=== PATIENT | male | born 1945 | race Caucasian/White ===

== ENCOUNTER → 2016-12-02 | Outpatient (CLI) | payer MEDICARE ==
[2016-04-06 07:58] VITALS: BP 121/55
[~2016-12-02] MED LIST: CELE-20 PO; CELE100C PO; COLC0.6T34 PO; GEMF600T PO; HYDR-2679 PO; LEVO150T5 PO; LISI-334 PO; LISI1TAB7 PO; TRIA1CAP3 PO
--- NOTE | 2016-12-02 12:01 | KCIC ---
EXAM: Chest, 2 views. HISTORY: Dyspnea. COMPARISON: None. FINDINGS: Frontal and lateral views of the chest are obtained. There is suspected infrahilar atelectasis. There is no consolidation, effusion or pneumothorax. The cardiac silhouette is upper normal in size. There is a cardiac pacemaker with leads in expected position. IMPRESSION: No acute pulmonary finding. Electronically signed by: Lesia Lan MD (12/02/2016 11:57 AM) [facility]
== END | disposition home or self-care (01) ==
LOC: KCIC 11:35
PROVIDERS: ATTEND Family Medicine
DX: R06.00 Dyspnea, unspecified (principal)
CPT/HCPCS: 71020

== ENCOUNTER 2016-12-18 11:08 | Inpatient (IN) | payer MEDICARE ==
[2016-12-18] VITALS (7 sets, daily range): BP systolic 114–136; BP diastolic 58–67
[~2016-12-18] VITALS: Ht 180.3 cm; Wt 129.3 kg
--- NOTE | 2016-12-18 13:29 | PDOC2 ---
JAVI GROVER JAVA GRAILS DEVELOPER 12/18/16 1329: CARDIAC CONSULT DATE OF CONSULT Date of Consult DATE: 12/18/16 TIME: 13:18 REASON FOR CONSULT Reason for Consult: Anemia, SOA, pacemaker REFERRING PHYSICIAN Referring Physician: Franco SOURCE Source: Chart review, Patient HISTORY OF PRESENT ILLNESS HISTORY OF PRESENT ILLNESS This is a pleasant 71 yo male admitted for complains of SOA. He was seen in our office on 12/04/2016 and was already having SALAZAR at that time. There was no associated symptoms that would suggest any ischemic issues going on and his recent device interrogation revealed normal functioning. He had stress test as well as LHC in 2014 which revealed normal coronaries. He was referred to pulmonary and was seen just this Wednesday and testings were done but type and results were still pending. He was then seen in his PCPs office today and was noted with multiple bruising to his arms and his blood count was checked and was told that his Hgb was 5. Upon admission he was noted with Hgb of 8 and PLT< 3. The only symptom he has is SOA with exertion and new ecchymoses and weakness. Denies any hematemesis, pink tinge urine, black stool, NSAID use, CP , SOA at rest, palpitations, syncope, nausea or vomiting. PAST MEDICAL HISTORY Cardiovascular: CHF, HTN, Hyperlipidemia, Other (venous insufficiency) Heme/Onc: Other (DVT?) Psych: Other (autism) Musculoskeletal: Osteoarthritis Rheumatologic: Gout Endocrine: Hypothyroidism PAST SURGICAL HISTORY Past Surgical History: Pacemaker, Cholecystectomy, Hernia Repair, Total knee replacement (bilateral), Other (RF ablation to RGSV; thyroid resection) FAMILY HISTORY Family History: Heart Disease (mother) SOCIAL HISTORY Smoke: No ALCOHOL: none Drugs: None ALLERGIES ALLERGIES: Coded Allergies: No Known Drug Allergies (Unverified , 01/02/14) ROS Review of System 14 point ROS evaluated with pertinent positives noted per HPI PHYSICAL EXAM General: Alert, Oriented X3, Cooperative, No acute distress HEENT: Atraumatic, Mucous membr. moist/pink, Other (exopthalmos) Lungs: Other (basilar crackles) Heart: Regular rate, Other (3/6 systolic murmur to LLS border) Abdomen: Soft, No tenderness Extremities: No cyanosis, Other (2+ bilateral LE pitting edema) Neuro: Normal speech Psych/Mental Status: Mental status NL, Mood NL MUSCULOSKELETAL: Osteoarthritic changes both hands ECHOCARDIOGRAM ECHOCARDIOGRAM <Conclusion> Septal wall motion abnormality probably from paced rhythm. The Ejection Fraction is 65%. Transmitral Doppler flow pattern is Grade I-abnormal relaxation pattern. The left atrium is mildly dilated. Pacer wire noted in right atrium and ventricle. Trace mitral regurgitation Mild tricuspid regurgitation. Mild-moderate pulmonary hypertension. The pulmonary artery systolic pressure is estimated at 44 mmHg. There is no evidence of significant pericardial effusion. DATE: 03/05/16 1258 HEART CATH HEART CATH Conclusion 1. No significant coronary artery disease 2. Normal left ventricle systolic function with ejection fraction estimated at 55% 3. No significant mitral regurgitation or aortic stenosis DATE: 04/30/14 1023 ASSESSMENT/PLAN ASSESSMENT/PLAN 1. Leukocytosis/Macrocytic anemia with severe thrombocytopenia: Hgb 8.1 (noted as 5 at PCPs office per pt) and PLT<3. Per PCP 2. 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 recent interrogation 12/03/2016 with normal functioning. 3. Dyspnea: Mainly due to anemia. Seen by pulmonary Wednesday with pending tests results. 4. GLEN: per PCP 5. HTN 6. HLP 7. Moderate pulmonary HTN 8. Chronic diastolic CHF 9. Acquired Hypothyroidism with exophthalmos 10. Hx of severe renal reaction with past blood transfusion: type unknown Recommendations 1. Transfusion per PCP. GI consult pending. Will consult pulmonary 2. TTE, TSH, CXR. Supportive care. Problems: DANIELE COLLAZO MD 12/18/16 1706: CARDIAC CONSULT ALLERGIES ALLERGIES: Coded Allergies: No Known Drug Allergies (Unverified , 01/02/14) ASSESSMENT/PLAN ASSESSMENT/PLAN Patient seen and examined Severe thrombocytopenia/anemia. Workup and treatment as per the primary service above. GI consult pending. Dual-chamber pacemaker. Recent normal interrogation. Dyspnea. Contributing factor of anemia. Heart catheterization in April 2014 showed no significant coronary artery disease and an ejection fraction of 55%. Repeating echocardiogram. Pulmonary consult pending. Acute kidney injury. Hypertension. Continuing medical treatment. Moderate pulmonary hypertension. Again continuing medical treatment. Chronic diastolic heart failure. Thank you for allowing us to participate in the care of your patient. Problems: JAVI GROVER APRN Dec 18, 2016 13:29 DANIELE COLLAZO MD Dec 18, 2016 17:06
[2016-12-18] MEDS ORDERED: CYANOCOBALAMIN (VITAMIN B-12) 1,000 MCG/ML VIAL SQ ONE (13:30)
[2016-12-18 13:53] LABS: HEMATOCRIT 25.7 % (39.0-53.0); HEMOGLOBIN 8.1 g/dL (13.0-17.5); MEAN CORPUSCULAR HEMOGLOBIN 35 pg (25-35); MEAN CORPUSCULAR HGB CONC 32 g/dL (31-37); MEAN CORPUSCULAR VOLUME 110 fL (79-100); RED BLOOD COUNT 2.34 x10^6/uL (4.30-5.70); RED CELL DISTRIBUTION WIDTH 17.4 % (11.5-14.5)
[2016-12-18 13:54] LABS: BASO # 0.1 x10^3/uL (0.0-0.2); BASO % 1 % (0-3); EOS % 1 % (0-3); LYMPH # 15.9 x10^3/uL (1.0-4.8); LYMPH % 76 % (24-48); MONO % 3 % (0-9); NEUT % 20 % (31-73); PLATELET COUNT < 3 x10^3/uL (140-400)
[2016-12-18 13:55] LABS: ALBUMIN 3.4 g/dL (3.4-5.0); ALBUMIN/GLOBULIN RATIO 1.4 (1.0-1.7); CALCIUM 8.3 mg/dL (8.5-10.1); CREATININE 1.8 mg/dL (0.7-1.3); DIRECT BILIRUBIN 0.6 mg/dL (0.0-0.2); GFR 37.5; POTASSIUM 3.7 mmol/L (3.5-5.1); TOTAL BILIRUBIN 3.6 mg/dL (0.2-1.0); TOTAL PROTEIN 5.8 g/dL (6.4-8.2)
[2016-12-18 13:59] LABS: % BASOS 1 % (0-3); % EOS 3 % (0-5); PLT ESTIMATE DECREASED (ADEQUATE)
[2016-12-18 14:00] LABS: ANISOCYTOSIS SLIGHT; POLYCHROMASIA SLIGHT
--- NOTE | 2016-12-18 14:43 | PDOC2 ---
GI CONSULT Reason For Consult: Anemia HPI: HPI: 71 y/o male sent who had a follow-up appt w/ Dr. Gamez this morning after pulmonology eval earlier this week. Found to be anemia (Hgb 5), sent to ER. Has been having some SOA, unclear what pulm workup showed. Has noted bruising on his arms, some weakness and fatigue. Here, Hgb 8 w/ plt <3. No hematemesis, hematochezia, melena. No n/v. No heartburn, reflux, or dysphagia. No abd pain. No change in appetite or weight. No diarrhea or constipation. No NSAID use, takes hydrocodone. Colonoscopy 3-4 years ago, recalls as normal. No previous EGD. S/p cholecystectomy. No liver or pancreas history. No h/o anemia. Cardiology, hematology, and nephrology asked to see. PMH: PMH: CHF, HTN, HLD, venous insufficiency, LE DVT, autism, OA, gout, hypothyroidism, pacemaker, cholecystectomy, right inguinal hernia repair, bilateral knee replacements, thyroidectomy (as a teenager, unclear reason), cardiac cath FH: Family History: CAD Social History: Smoke: No ALCOHOL: none Drugs: None ROS: GEN: Denies fevers, chills, sweats HEENT: Denies blurred vision, sore throat CV: Denies chest pain RESP: +SOA GI: Per HPI : Denies hematuria, dysuria ENDO: Denies weight changes NEURO: Denies confusion, dizziness MSK: +weakness SKIN: +bruising Vitals: Vitals: Please see EMR. Labs: Labs: Laboratory Tests Test 12/18/16 12:00 White Blood Count 21.0 x10^3/uL (4.0-11.0) Red Blood Count 2.34 x10^6/uL (4.30-5.70) Hemoglobin 8.1 g/dL (13.0-17.5) Hematocrit 25.7 % (39.0-53.0) Mean Corpuscular Volume 110 fL (79-100) Mean Corpuscular Hemoglobin 35 pg (25-35) Mean Corpuscular Hemoglobin Concent 32 g/dL (31-37) Red Cell Distribution Width 17.4 % (11.5-14.5) Platelet Count < 3 x10^3/uL (140-400) Neutrophils (%) (Auto) 20 % (31-73) Lymphocytes (%) (Auto) 76 % (24-48) Monocytes (%) (Auto) 3 % (0-9) Eosinophils (%) (Auto) 1 % (0-3) Basophils (%) (Auto) 1 % (0-3) Neutrophils # (Auto) 4.3 x10^3uL (1.8-7.7) Lymphocytes # (Auto) 15.9 x10^3/uL (1.0-4.8) Monocytes # (Auto) 0.5 x10^3/uL (0.0-1.1) Eosinophils # (Auto) 0.1 x10^3/uL (0.0-0.7) Basophils # (Auto) 0.1 x10^3/uL (0.0-0.2) Segmented Neutrophils % 27 % (35-66) Band Neutrophils % 4 % (0-9) Lymphocytes % 61 % (24-48) Atypical Lymphocytes % (Manual) 2 % (0-0) Monocytes % 1 % (0-10) Eosinophils % 3 % (0-5) Basophils % 1 % (0-3) Metamyelocytes % 1 % (0-0) Platelet Estimate Decreased (ADEQUATE) Polychromasia Slight Anisocytosis Slight Reticulocyte Count (auto) 7.6 % (0.5-2.5) Sodium Level 145 mmol/L (136-145) Potassium Level 3.7 mmol/L (3.5-5.1) Chloride Level 106 mmol/L (98-107) Carbon Dioxide Level 25 mmol/L (21-32) Anion Gap 14 (6-14) Blood Urea Nitrogen 32 mg/dL (8-26) Creatinine 1.8 mg/dL (0.7-1.3) Estimated GFR (Cockcroft-Gault) 37.5 BUN/Creatinine Ratio 18 (6-20) Glucose Level 135 mg/dL (70-99) Lactic Acid Level 2.5 mmol/L (0.4-2.0) Calcium Level 8.3 mg/dL (8.5-10.1) Total Bilirubin 3.6 mg/dL (0.2-1.0) Direct Bilirubin 0.6 mg/dL (0.0-0.2) Aspartate Amino Transf (AST/SGOT) 45 U/L (15-37) Alanine Aminotransferase (ALT/SGPT) 16 U/L (16-63) Alkaline Phosphatase 96 U/L (46-116) Troponin I Quantitative 0.022 ng/mL (0.000-0.055) Total Protein 5.8 g/dL (6.4-8.2) Albumin 3.4 g/dL (3.4-5.0) Albumin/Globulin Ratio 1.4 (1.0-1.7) Lipase 118 U/L (73-393) Vitamin B12 Level 531 pg/mL (247-911) Allergies: Coded Allergies: No Known Drug Allergies (Unverified , 01/02/14) Medications: Please see EMR. Imaging: Imaging: - PE: GEN: NAD HEENT: exophthalmos LUNGS: CTAB anteriorly HEART: RRR +murm ABD: NABS, S/ND/NT EXTREMITY: BLE edema, wrapped SKIN: +UE ecchymosis NEURO/PSYCH: A & O 3 A/P: A/P: SOA, recent pulm eval (outpt) Thrombocytopenia, macrocytic anemia Leukocytosis GLEN Hyperbilirubinemia CRC screen - reports normal colonoscopy <5 years ago -- Await additional labs, add iron profile. JOSE MARUQEZ Dec 18, 2016 14:43
[2016-12-18 14:46] LABS: INR 1.3 (0.8-1.1)
[2016-12-18 15:08] LABS: % SAT IRON 29 % (15-34); IRON,SERUM 83 ug/dL (65-175)
--- NOTE | 2016-12-18 15:11 | PDOC2 ---
CONSULT Date of Consult Date of Consult DATE: 12/18/16 TIME: 14:56 Reason for Consult Reason for Consult: ckd iiI Referring Physician Referring Physician: Dr Estrella Identification/Chief Complaint Chief Complaint symptomatic anemia Problems: Source Source: Chart review, Patient History of Present Illness Reason for Visit: as dictated Past Medical History Cardiovascular: CHF, HTN, Hyperlipidemia, Other (venous insufficiency) Heme/Onc: Other (DVT?) Psych: Other (autism) Musculoskeletal: Osteoarthritis Rheumatologic: Gout Endocrine: Hypothyroidism Past Surgical History Past Surgical History: Pacemaker, Cholecystectomy, Hernia Repair, Total knee replacement (bilateral), Other (RF ablation to RGSV; thyroid resection) Family History Family History: Heart Disease (mother) Social History No ALCOHOL: none Drugs: None Current Medications Current Medications Current Medications Allopurinol (Zyloprim) 300 mg DAILY PO ; Start 12/19/16 at 09:00 Levothyroxine Sodium (Synthroid) 150 mcg DAILY07 PO ; Start 12/19/16 at 07:00 Cyanocobalamin (Vitamin B-12) 1,000 mcg 1X ONCE SQ ; Start 12/18/16 at 13:30; Stop 12/18/16 at 13:31; Status DC Active Scripts Active Reported Colcrys (Colchicine) 0.6 Mg Tablet 1 Tab PO DAILY Lisinopril-Hctz 20-25 Mg Tab (Lisinopril/Hydrochlorothiazide) 1 Each Tablet 1 Tab PO DAILY Celecoxib 200 Mg Capsule 200 Mg PO PRN PRN Lortab 7.5-325 mg Tablet (Hydrocodone/Acetaminophen) 1 Each Tablet 1 Tab PO PRN Q6HRS PRN Levothyroxine Sodium 150 Mcg Tablet 1 Tab PO DAILY Allergies Allergies: Coded Allergies: No Known Drug Allergies (Unverified , 01/02/14) ROS Review of System GEN: no Fevers no Chills ^ Fatigue EYES: no new Visual Complaints ENT: no EN Drainage no Hearing deficiets CVS: no Orthopnea no CP CVI RESP: + SOB + SALAZAR GI: no Nausea no Vomiting : no Dysuria no Urgency HEME: + easy bruising + Palp Ly Nodes NEURO no Focal Weakness no Sz PSYCH: no Suicidal Ideation no Depression SKIN: no petechiale Rashes ENDO: no Polyuria or Polydipsia no Hot/Cold Intolerance MU SK: occ Arthraigia no Myalgia Physical Exam Physical Exam General Appearance: Awake Alert Oriented x 3 In no Distress Eyes: VIsion Unchanged Conjunctiva Normal; ? some exopthalmos EN: No EN Drainage Mucous Memb. moist Neck: no JVD no JVP Supple no Thyromegaly; thick neck CVS: S1 S2 no Murmur No Gallop No Rub Ch Edema (currently in wraps and better) Resp: no Rales no Rhonchi no Acc. Muscle use GI: BAS +ve NO Bruit Non Tender Non Distended - obese : no CVA tenderness; no Suprapubic Tenderness SKIN: no Rashes Breast Exam deferred Mu.Sk: Adequate ROM no Muscle Atrophy Heme: + Cervical LAD no palp Splenomegaly NEURO: Good Strength and Tone Cranial Nerves II - XII grossly intact Psych: not Depressed no Active hallucination Vital Signs Vital Signs Date Time Temp Pulse Resp B/P (MAP) Pulse Ox O2 Delivery O2 Flow Rate FiO2 12/18/16 14:40 97.8 81 18 114/67 (83) 94 Room Air 97.8 Assessment & Plan CKD III: Unclear ETIO - but is chronic and has been "watched" by Dr Gamez. Current FLuid and E-lyte status does not necessitate emergent need for Dialysis. Will re-evaluate for Dialysis in am ? GLEN - hold PYLE-2i; BRIANDA-i and diuretics fornow. IVF and reval for reversibility Anemia: defer w/up eval to dr Estrella. (? H'lytic anemai) Lactic Aciedmia - no ABG per se. follow trend Edema - better with Wraps currently. HTN: Current BP meds reviewed. See orders for changes. Discussed Plan of Care and prognosis etc. at length with family. Labs Labs Laboratory Tests Test 12/18/16 12:00 White Blood Count 21.0 x10^3/uL (4.0-11.0) Red Blood Count 2.34 x10^6/uL (4.30-5.70) Hemoglobin 8.1 g/dL (13.0-17.5) Hematocrit 25.7 % (39.0-53.0) Mean Corpuscular Volume 110 fL (79-100) Mean Corpuscular Hemoglobin 35 pg (25-35) Mean Corpuscular Hemoglobin Concent 32 g/dL (31-37) Red Cell Distribution Width 17.4 % (11.5-14.5) Platelet Count < 3 x10^3/uL (140-400) Neutrophils (%) (Auto) 20 % (31-73) Lymphocytes (%) (Auto) 76 % (24-48) Monocytes (%) (Auto) 3 % (0-9) Eosinophils (%) (Auto) 1 % (0-3) Basophils (%) (Auto) 1 % (0-3) Neutrophils # (Auto) 4.3 x10^3uL (1.8-7.7) Lymphocytes # (Auto) 15.9 x10^3/uL (1.0-4.8) Monocytes # (Auto) 0.5 x10^3/uL (0.0-1.1) Eosinophils # (Auto) 0.1 x10^3/uL (0.0-0.7) Basophils # (Auto) 0.1 x10^3/uL (0.0-0.2) Segmented Neutrophils % 27 % (35-66) Band Neutrophils % 4 % (0-9) Lymphocytes % 61 % (24-48) Atypical Lymphocytes % (Manual) 2 % (0-0) Monocytes % 1 % (0-10) Eosinophils % 3 % (0-5) Basophils % 1 % (0-3) Metamyelocytes % 1 % (0-0) Platelet Estimate Decreased (ADEQUATE) Polychromasia Slight Anisocytosis Slight Reticulocyte Count (auto) 7.6 % (0.5-2.5) Sodium Level 145 mmol/L (136-145) Potassium Level 3.7 mmol/L (3.5-5.1) Chloride Level 106 mmol/L (98-107) Carbon Dioxide Level 25 mmol/L (21-32) Anion Gap 14 (6-14) Blood Urea Nitrogen 32 mg/dL (8-26) Creatinine 1.8 mg/dL (0.7-1.3) Estimated GFR (Cockcroft-Gault) 37.5 BUN/Creatinine Ratio 18 (6-20) Glucose Level 135 mg/dL (70-99) Lactic Acid Level 2.5 mmol/L (0.4-2.0) Calcium Level 8.3 mg/dL (8.5-10.1) Total Bilirubin 3.6 mg/dL (0.2-1.0) Direct Bilirubin 0.6 mg/dL (0.0-0.2) Aspartate Amino Transf (AST/SGOT) 45 U/L (15-37) Alanine Aminotransferase (ALT/SGPT) 16 U/L (16-63) Alkaline Phosphatase 96 U/L (46-116) Troponin I Quantitative 0.022 ng/mL (0.000-0.055) Total Protein 5.8 g/dL (6.4-8.2) Albumin 3.4 g/dL (3.4-5.0) Albumin/Globulin Ratio 1.4 (1.0-1.7) Lipase 118 U/L (73-393) Vitamin B12 Level 531 pg/mL (247-911) Thyroid Stimulating Hormone (TSH) 3.738 uIU/mL (0.358-3.74) Laboratory Tests Test 12/18/16 12:00 White Blood Count 21.0 x10^3/uL (4.0-11.0) Red Blood Count 2.34 x10^6/uL (4.30-5.70) Hemoglobin 8.1 g/dL (13.0-17.5) Hematocrit 25.7 % (39.0-53.0) Mean Corpuscular Volume 110 fL (79-100) Mean Corpuscular Hemoglobin 35 pg (25-35) Mean Corpuscular Hemoglobin Concent 32 g/dL (31-37) Red Cell Distribution Width 17.4 % (11.5-14.5) Platelet Count < 3 x10^3/uL (140-400) Neutrophils (%) (Auto) 20 % (31-73) Lymphocytes (%) (Auto) 76 % (24-48) Monocytes (%) (Auto) 3 % (0-9) Eosinophils (%) (Auto) 1 % (0-3) Basophils (%) (Auto) 1 % (0-3) Neutrophils # (Auto) 4.3 x10^3uL (1.8-7.7) Lymphocytes # (Auto) 15.9 x10^3/uL (1.0-4.8) Monocytes # (Auto) 0.5 x10^3/uL (0.0-1.1) Eosinophils # (Auto) 0.1 x10^3/uL (0.0-0.7) Basophils # (Auto) 0.1 x10^3/uL (0.0-0.2) Segmented Neutrophils % 27 % (35-66) Band Neutrophils % 4 % (0-9) Lymphocytes % 61 % (24-48) Atypical Lymphocytes % (Manual) 2 % (0-0) Monocytes % 1 % (0-10) Eosinophils % 3 % (0-5) Basophils % 1 % (0-3) Metamyelocytes % 1 % (0-0) Platelet Estimate Decreased (ADEQUATE) Polychromasia Slight Anisocytosis Slight Reticulocyte Count (auto) 7.6 % (0.5-2.5) Sodium Level 145 mmol/L (136-145) Potassium Level 3.7 mmol/L (3.5-5.1) Chloride Level 106 mmol/L (98-107) Carbon Dioxide Level 25 mmol/L (21-32) Anion Gap 14 (6-14) Blood Urea Nitrogen 32 mg/dL (8-26) Creatinine 1.8 mg/dL (0.7-1.3) Estimated GFR (Cockcroft-Gault) 37.5 BUN/Creatinine Ratio 18 (6-20) Glucose Level 135 mg/dL (70-99) Lactic Acid Level 2.5 mmol/L (0.4-2.0) Calcium Level 8.3 mg/dL (8.5-10.1) Total Bilirubin 3.6 mg/dL (0.2-1.0) Direct Bilirubin 0.6 mg/dL (0.0-0.2) Aspartate Amino Transf (AST/SGOT) 45 U/L (15-37) Alanine Aminotransferase (ALT/SGPT) 16 U/L (16-63) Alkaline Phosphatase 96 U/L (46-116) Troponin I Quantitative 0.022 ng/mL (0.000-0.055) Total Protein 5.8 g/dL (6.4-8.2) Albumin 3.4 g/dL (3.4-5.0) Albumin/Globulin Ratio 1.4 (1.0-1.7) Lipase 118 U/L (73-393) Vitamin B12 Level 531 pg/mL (247-911) Thyroid Stimulating Hormone (TSH) 3.738 uIU/mL (0.358-3.74) MAURO QUACH MD Dec 18, 2016 15:11
[2016-12-18] MEDS ORDERED: MAGNESIUM SULFATE 2GM 50 ML IV PRN (15:15)
--- NOTE | 2016-12-18 15:23 | EKG ---
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
--- NOTE | 2016-12-18 15:52 | PDOC ---
Provider Note Provider Note Med Onc consult 1. 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 Started prednisone 120 mg daily from 11/2016. 2. 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 Started prednisone 120 mg daily from 12/18/2016. Monitor CBC. 3. Leukocytosis with elevated lymphocytes. I suspect that he has CLL. Plan for a bone marrow biopsy next week. see dictation [id number] PRINCE HANDLEY MD Dec 18, 2016 15:52
--- NOTE | 2016-12-18 15:55 | CARD ---
APPROVED REPORT EXAM: Two-dimensional and M-mode echocardiogram with Doppler and color Doppler. Other Information Quality : Good INDICATION Dyspnea Hypertension/HCVD 2D DIMENSIONS RVDd2.8 (2.9-3.5cm)Left Atrium(2D)4.4 (1.6-4.0cm) IVSd1.3 (0.7-1.1cm)Aortic Root(2D)3.5 (2.0-3.7cm) LVDd5.7 (3.9-5.9cm)LVOT Diameter2.3 (1.8-2.4cm) PWd1.1 (0.7-1.1cm)LVDs3.8 (2.5-4.0cm) FS (%) 27.5 %SV102.0 ml LVEF(%)55.0 (>50%) Aortic Valve AoV Peak Lexa.218.8cm/sAoV VTI39.5cm AO Peak GR.19.1mmHgLVOT Peak Lexa.148.1cm/s LVOT VTI 31.36cmAO Mean GR.10mmHg CESAR (VMAX)2.00vz4KXS (VTI)3.41cm2 Mitral Valve MV E Ucdjfzqm51.3cm/sMV DECEL [id number] MV A Rykehxkt95.2cm/sMV TDI10ut E/A Ratio0.8MVA (PHT)2.57cm2 TDI E/Lateral E'8.1E/Medial E'9.2 Tricuspid Valve TR P. Aqxkxqoo056ef/sRAP UCRBYXYZ9fhBm TR Peak Gr.67mcStQNNX57juTi Pulmonary Vein S1 Deorzakx59.3cm/sD2 Rbudjwkl85.0cm/s LEFT VENTRICLE The left ventricle is normal size. There is mild asymmetric septal hypertrophy. Left ventricle systol ic function is low normal. The Ejection Fraction is 50-55%. Septal motion consistent with conduction abnormality. Mild global hypokinesis. Transmitral Doppler flow pattern is Grade I-abnormal relaxation pattern. RIGHT VENTRICLE The right ventricle is normal size. The right ventricular systolic function is normal. There is a pac emaker lead in the right ventricle. ATRIA The left atrium is mildly dilated. The right atrium size is normal. A pacemaker is seen in the right atrium consistent with history. The interatrial septum is intact with no evidence for an atrial septa l defect or patent foramen ovale as noted on 2-D or Doppler imaging. AORTIC VALVE The aortic valve is calcified but opens well. Doppler and Color Flow revealed trace to mild aortic re gurgitation. There is no significant aortic valvular stenosis. MITRAL VALVE The mitral valve is normal in structure and function. There is no evidence of mitral valve prolapse. There is no mitral valve stenosis. Doppler and Color-flow revealed mild mitral regurgitation. TRICUSPID VALVE The tricuspid valve is normal in structure and function. Doppler and Color Flow revealed mild tricusp id regurgitation. There is moderate pulmonary hypertension. The PA pressure was estimated at 61 mmHg. There is no tricuspid valve stenosis. PULMONIC VALVE Doppler and Color Flow revealed trace to mild pulmonic valvular regurgitation. There is no pulmonic v alvular stenosis. GREAT VESSELS The aortic root is normal in size. The ascending aorta is normal in size. The IVC is normal in size a nd collapses >50% with inspiration. PERICARDIAL EFFUSION There is no evidence of significant pericardial effusion. Critical Notification Critical Value: No <Conclusion> Left ventricle systolic function is low normal. The Ejection Fraction is 50-55%. Septal motion consistent with conduction abnormality. Mild global hypokinesis. There is a pacemaker lead in the right ventricle. Doppler and Color Flow revealed trace to mild aortic regurgitation. Doppler and Color Flow revealed mild tricuspid regurgitation. There is moderate pulmonary hypertensio n. The PA pressure was estimated at 61 mmHg.
[2016-12-18] MEDS: predniSONE 20 MG TABLET PO SCH (16:16)
[2016-12-18] MEDS: IV NORMAL SALINE 1000ML BAG 1,000 ML IV SCH (16:17)
--- NOTE | 2016-12-18 16:23 | RAD ---
EXAM: Chest one view. HISTORY: Dyspnea. COMPARISON: 12/02/2016. FINDINGS: A frontal view of the chest is obtained. A left-sided pacemaker has its leads in the right atrium and right ventricle. There are no confluent infiltrates. There is no pneumothorax or pleural effusion. The heart is not enlarged. IMPRESSION: 1. No confluent infiltrates.
--- NOTE | 2016-12-18 16:44 | PDOC ---
PULMONARY PROGRESS NOTES Vitals Vital Signs Date Time Temp Pulse Resp B/P (MAP) Pulse Ox O2 Delivery O2 Flow Rate FiO2 12/18/16 14:40 97.8 81 18 114/67 (83) 94 Room Air 97.8 Labs Laboratory Tests Test 12/18/16 12:00 12/18/16 14:18 White Blood Count 21.0 x10^3/uL (4.0-11.0) Red Blood Count 2.34 x10^6/uL (4.30-5.70) Hemoglobin 8.1 g/dL (13.0-17.5) Hematocrit 25.7 % (39.0-53.0) Mean Corpuscular Volume 110 fL (79-100) Mean Corpuscular Hemoglobin 35 pg (25-35) Mean Corpuscular Hemoglobin Concent 32 g/dL (31-37) Red Cell Distribution Width 17.4 % (11.5-14.5) Platelet Count < 3 x10^3/uL (140-400) Neutrophils (%) (Auto) 20 % (31-73) Lymphocytes (%) (Auto) 76 % (24-48) Monocytes (%) (Auto) 3 % (0-9) Eosinophils (%) (Auto) 1 % (0-3) Basophils (%) (Auto) 1 % (0-3) Neutrophils # (Auto) 4.3 x10^3uL (1.8-7.7) Lymphocytes # (Auto) 15.9 x10^3/uL (1.0-4.8) Monocytes # (Auto) 0.5 x10^3/uL (0.0-1.1) Eosinophils # (Auto) 0.1 x10^3/uL (0.0-0.7) Basophils # (Auto) 0.1 x10^3/uL (0.0-0.2) Segmented Neutrophils % 27 % (35-66) Band Neutrophils % 4 % (0-9) Lymphocytes % 61 % (24-48) Atypical Lymphocytes % (Manual) 2 % (0-0) Monocytes % 1 % (0-10) Eosinophils % 3 % (0-5) Basophils % 1 % (0-3) Metamyelocytes % 1 % (0-0) Platelet Estimate Decreased (ADEQUATE) Polychromasia Slight Anisocytosis Slight Reticulocyte Count (auto) 7.6 % (0.5-2.5) Sodium Level 145 mmol/L (136-145) Potassium Level 3.7 mmol/L (3.5-5.1) Chloride Level 106 mmol/L (98-107) Carbon Dioxide Level 25 mmol/L (21-32) Anion Gap 14 (6-14) Blood Urea Nitrogen 32 mg/dL (8-26) Creatinine 1.8 mg/dL (0.7-1.3) Estimated GFR (Cockcroft-Gault) 37.5 BUN/Creatinine Ratio 18 (6-20) Glucose Level 135 mg/dL (70-99) Lactic Acid Level 2.5 mmol/L (0.4-2.0) Calcium Level 8.3 mg/dL (8.5-10.1) Ferritin 143 ng/mL (26-388) Total Bilirubin 3.6 mg/dL (0.2-1.0) Direct Bilirubin 0.6 mg/dL (0.0-0.2) Aspartate Amino Transf (AST/SGOT) 45 U/L (15-37) Alanine Aminotransferase (ALT/SGPT) 16 U/L (16-63) Alkaline Phosphatase 96 U/L (46-116) Troponin I Quantitative 0.022 ng/mL (0.000-0.055) Total Protein 5.8 g/dL (6.4-8.2) Albumin 3.4 g/dL (3.4-5.0) Albumin/Globulin Ratio 1.4 (1.0-1.7) Lipase 118 U/L (73-393) Vitamin B12 Level 531 pg/mL (247-911) Thyroid Stimulating Hormone (TSH) 3.738 uIU/mL (0.358-3.74) Prothrombin Time 15.0 SEC (11.7-14.0) Prothromb Time International Ratio 1.3 (0.8-1.1) Activated Partial Thromboplast Time 30 SEC (24-38) Fibrinogen 282 mg/dL (200-440) D-Dimer (Eden) 0.49 ug/mlFEU (0.00-0.50) Iron Level 83 ug/dL (65-175) Total Iron Binding Capacity 283 ug/dL (250-450) Iron Saturation 29 % (15-34) Lactate Dehydrogenase 611 U/L (85-227) Laboratory Tests Test 12/18/16 12:00 12/18/16 14:18 White Blood Count 21.0 x10^3/uL (4.0-11.0) Red Blood Count 2.34 x10^6/uL (4.30-5.70) Hemoglobin 8.1 g/dL (13.0-17.5) Hematocrit 25.7 % (39.0-53.0) Mean Corpuscular Volume 110 fL (79-100) Mean Corpuscular Hemoglobin 35 pg (25-35) Mean Corpuscular Hemoglobin Concent 32 g/dL (31-37) Red Cell Distribution Width 17.4 % (11.5-14.5) Platelet Count < 3 x10^3/uL (140-400) Neutrophils (%) (Auto) 20 % (31-73) Lymphocytes (%) (Auto) 76 % (24-48) Monocytes (%) (Auto) 3 % (0-9) Eosinophils (%) (Auto) 1 % (0-3) Basophils (%) (Auto) 1 % (0-3) Neutrophils # (Auto) 4.3 x10^3uL (1.8-7.7) Lymphocytes # (Auto) 15.9 x10^3/uL (1.0-4.8) Monocytes # (Auto) 0.5 x10^3/uL (0.0-1.1) Eosinophils # (Auto) 0.1 x10^3/uL (0.0-0.7) Basophils # (Auto) 0.1 x10^3/uL (0.0-0.2) Segmented Neutrophils % 27 % (35-66) Band Neutrophils % 4 % (0-9) Lymphocytes % 61 % (24-48) Atypical Lymphocytes % (Manual) 2 % (0-0) Monocytes % 1 % (0-10) Eosinophils % 3 % (0-5) Basophils % 1 % (0-3) Metamyelocytes % 1 % (0-0) Platelet Estimate Decreased (ADEQUATE) Polychromasia Slight Anisocytosis Slight Reticulocyte Count (auto) 7.6 % (0.5-2.5) Sodium Level 145 mmol/L (136-145) Potassium Level 3.7 mmol/L (3.5-5.1) Chloride Level 106 mmol/L (98-107) Carbon Dioxide Level 25 mmol/L (21-32) Anion Gap 14 (6-14) Blood Urea Nitrogen 32 mg/dL (8-26) Creatinine 1.8 mg/dL (0.7-1.3) Estimated GFR (Cockcroft-Gault) 37.5 BUN/Creatinine Ratio 18 (6-20) Glucose Level 135 mg/dL (70-99) Lactic Acid Level 2.5 mmol/L (0.4-2.0) Calcium Level 8.3 mg/dL (8.5-10.1) Ferritin 143 ng/mL (26-388) Total Bilirubin 3.6 mg/dL (0.2-1.0) Direct Bilirubin 0.6 mg/dL (0.0-0.2) Aspartate Amino Transf (AST/SGOT) 45 U/L (15-37) Alanine Aminotransferase (ALT/SGPT) 16 U/L (16-63) Alkaline Phosphatase 96 U/L (46-116) Troponin I Quantitative 0.022 ng/mL (0.000-0.055) Total Protein 5.8 g/dL (6.4-8.2) Albumin 3.4 g/dL (3.4-5.0) Albumin/Globulin Ratio 1.4 (1.0-1.7) Lipase 118 U/L (73-393) Vitamin B12 Level 531 pg/mL (247-911) Thyroid Stimulating Hormone (TSH) 3.738 uIU/mL (0.358-3.74) Prothrombin Time 15.0 SEC (11.7-14.0) Prothromb Time International Ratio 1.3 (0.8-1.1) Activated Partial Thromboplast Time 30 SEC (24-38) Fibrinogen 282 mg/dL (200-440) D-Dimer (Eden) 0.49 ug/mlFEU (0.00-0.50) Iron Level 83 ug/dL (65-175) Total Iron Binding Capacity 283 ug/dL (250-450) Iron Saturation 29 % (15-34) Lactate Dehydrogenase 611 U/L (85-227) Medications Active Scripts Medications Dose Route/Sig Max Daily Dose Days Date Category Colcrys (Colchicine) 0.6 Mg Tablet 1 Tab PO DAILY 04/30/14 Reported Lisinopril-Hctz 20-25 Mg Tab (Lisinopril/Hydrochlorothiazide) 1 Each Tablet 1 Tab PO DAILY 04/30/14 Reported Celecoxib 200 Mg Capsule 200 Mg PO PRN PRN 04/30/14 Reported Lortab 7.5-325 mg Tablet (Hydrocodone/Acetaminophen) 1 Each Tablet 1 Tab PO PRN Q6HRS PRN 01/02/14 Reported Levothyroxine Sodium 150 Mcg Tablet 1 Tab PO DAILY 01/02/14 Reported Impression . DICTATED RESP DISTRESS MULTIFACTORIAL ELEVATED D-DIMER WILL PROCEED WITH V/Q SCAN SEC PULM HTN ONEAL SEE ORDERS THANKS ILSA PADILLA MD Dec 18, 2016 16:44
--- NOTE | 2016-12-18 19:01 | RAD ---
Lung scan 12/18/2016 CLINICAL HISTORY: Elevated d-dimer. TECHNIQUE: After the administration of 20.0 mCi of xenon-133 gas, ventilation images of both lungs were obtained using the gamma camera. After the intravenous administration of 5.0 mCi of technetium 99m MAA, perfusion images of both lungs were obtained using the gamma camera. FINDINGS: Comparison is made to portable chest radiograph performed earlier today. This demonstrates borderline cardiomegaly. A pacemaker is noted in place. No acute pulmonary infiltrate is seen. Slightly heterogeneous ventilation and perfusion of both lungs is seen. No unmatched perfusion defect is noted. These findings are consistent with a low probability study for pulmonary embolism. IMPRESSION: Low probability study. Electronically signed by: Leroy Davis MD (12/18/2016 6:57 PM) [facility]
--- NOTE | 2016-12-18 22:21 | RAD ---
Bilateral lower extremity venous duplex study 12/18/2016 Clinical History: Elevated d-dimer. Shortness of breath. Technique: Using a combination of real time ultrasound imaging and color-flow and pulse Doppler imaging techniques along with graded compression and augmentation, duplex evaluation of the deep venous system of the both lower extremities was performed. Multiple images were obtained. Findings: Echogenic nonocclusive thrombus consistent with DVT is seen involving the right popliteal vein extending to involve the entire right superficial femoral vein. The right common femoral vein is patent. There is no sonographic evidence of deep venous thrombosis involving the visualized deep venous structures of the left lower extremity. IMPRESSION: DVT is seen involving the right popliteal vein and right superficial femoral vein. Electronically signed by: Leroy Davis MD (12/18/2016 10:18 PM) [facility]
[2016-12-19] VITALS (15 sets, daily range): BP systolic 109–161; BP diastolic 46–93
--- NOTE | 2016-12-19 01:19 | CONS ---
DATE OF CONSULTATION: PRIMARY PHYSICIAN: Dr. Gamez. CONSULTING PHYSICIAN: Dr. Munoz. REASON FOR CONSULTATION: Renal insufficiency. HISTORY OF PRESENT ILLNESS: The patient is a 71-year-old gentleman who was known to have chronic renal insufficiency with a baseline creatinine of 1.7 to 2.0 dating back to [id number] timeframe. He did have renal ultrasounds done at that time. At present, etiology of his renal insufficiency is unclear to us at this time. The patient developed significant worsening of his shortness of breath to where he feels somewhat short of breath at rest also. He was admitted to the hospital after he was found to have low hemoglobin and a platelet count of less than 3000. He is also noted to have 76%, lymphocytes as well as an elevated retic count. Workup for possible hemolytic anemia is ongoing at this time. For other details, please see electronic renal consult note. MAURO QUACH MD DR: BENI/adonay JOB#: [id number] / [id number]
[2016-12-19 04:20] LABS: HIV ANTIBODY Non Reactive (Non Reactive)
--- NOTE | 2016-12-19 04:31 | CONS ---
DATE OF CONSULTATION: 12/18/2016 REQUESTING PHYSICIAN: Dr. Sundar Gamez REASON FOR CONSULTATION: Severe anemia, thrombocytopenia and leukocytosis. HISTORY OF PRESENT ILLNESS: The patient is a 71-year-old gentleman who had a followup appointment with his primary care physician, Dr. Sundar Gamez, on the morning of 12/18/2016. He was found to have hemoglobin of 5 and he was sent to the Emergency Room. He had symptoms of dyspnea and bruising in his arms along with easy fatigability and generalized weakness. Evaluation at [facility] on 12/18/2016 revealed hemoglobin of 8.1 with an MCV of 110 and a platelet count of less than 3. WBC was 21,000 with 76% lymphocytes and an absolute lymphocyte count of 15.9. There were 2% atypical lymphocytes. Peripheral blood smear review personally by me revealed evidence of smudge cells, elevated lymphocytes and no evidence of fragmented red blood cells. Reticulocyte count was elevated at 7.6. His LDH was elevated at 611. Iron was 83, iron saturation 29, TIBC 283. TSH was 3.738. B12 531. Total bilirubin was 3.6, direct bilirubin 0.6 and AST 45. Creatinine 1.8. I was asked to see the patient for severe anemia and thrombocytopenia. I discussed with the blood bank who mentioned that the Coomb's test was positive. I also discussed with the lead slot technician and I personally reviewed the peripheral blood smear. There is no evidence of fragmented red cells. PAST MEDICAL HISTORY: Congestive heart failure, hypertension, hyperlipidemia, DVT of the left lower extremity, venous insufficiency, autism, osteoarthritis, gout, hypothyroidism, pacemaker placement, cholecystectomy, right inguinal hernia repair, bilateral knee replacement, thyroidectomy and cardiac catheterization. FAMILY HISTORY: Positive for coronary artery disease and no history of cancer. SOCIAL HISTORY: No smoking or alcohol abuse. REVIEW OF SYSTEMS: A 12-point review of system was performed. Pertinent positives are mentioned in the history of present illness. Rest of the system review is negative. PHYSICAL EXAMINATION: GENERAL APPEARANCE: The patient is a 71-year-old gentleman who is well built and nourished and in no acute cardiorespiratory distress. VITAL SIGNS: Blood pressure 114/67, temperature 97.8 and heart rate 81. HEAD: Atraumatic and normocephalic. EYES: No icterus. NECK: Supple. CHEST: Bilaterally symmetrical. No crepitations or rhonchi heard. HEART: S1, S2 normal. ABDOMEN: Soft and nontender. No hepatosplenomegaly. CENTRAL NERVOUS SYSTEM: No focal neurological deficits. LYMPHATICS: He has evidence of subcentimeter lymph nodes in bilateral cervical regions. There is a 3 cm right axillary lymph node palpable and a 1 cm left axillary lymph node palpable. No hepatosplenomegaly. MUSCULOSKELETAL: No joint effusions. LABORATORY DATA: From 12/18/2016, WBC 21.0, hemoglobin 8.1, MCV 110, platelet count less than 3, lymphocytes 76%, absolute lymphocyte count 15.9, atypical lymphocytes 2%, metamyelocytes 1%, reticulocyte count 7.6%. LDH 611. B12 531. Iron 83, TIBC 283 and iron saturation 29. Total bilirubin 3.6, direct bilirubin 0.6, AST 45, ALT 16. BUN 32 and creatinine 1.8. IMPRESSION AND PLAN: 1. Severe thrombocytopenia with a platelet count of less than 3. On a manual, platelet count result was 1. I discussed with the hematology poultry farm laborer and I also reviewed the peripheral blood smear with the facility environmental technician. There is no evidence of fragmented red blood cells. There is no clinical evidence to suggest TTP. There is no evidence of DIC. His INR is 1.3 with a fibrinogen of 282 and PTT of 30. With the presence of elevated lymphocytes and positive Coomb's test the severe thrombocytopenia is consistent with ITP. I will start him on prednisone 120 mg p.o. daily from 12/18/2016. First dose to be given now. I discussed with registered nurse. 2. Autoimmune hemolytic anemia. Hemoglobin 8.1 on 12/18/2016 with an MCV of 110. Normal B12 level. Reticulocyte count is elevated at 7.6 and a total bilirubin 3.6, direct bilirubin 0.6. I will start him on prednisone as described above. Monitor hemoglobin. 3. Leukocytosis with elevated lymphocytes consistent with CLL. He also has evidence of lymphadenopathy in the cervical region and right axillary and left axillary region. The patients with CLL are at a high risk for autoimmune hemolytic anemia and ITP. Once his platelet counts improve, I will proceed with a bone marrow aspiration and biopsy. He also has evidence of atypical lymphocytes and 1% metamyelocytes. 4. Renal failure with a creatinine of 1.8. Review of the old records indicates that he has chronically elevated creatinine level. I consulted Nephrology. I also discussed with Dr. Carcamo and the clinical picture is not consistent with TTP. 5. Fatigue secondary to anemia. Continue to monitor. 6. Lymphadenopathy due to suspected CLL. PRINCE HANDLEY MD DR: MAO/adonay JOB#: [id number] / [id number] Sundar Price
[2016-12-19 05:11] LABS: BASO # 0.1 x10^3/uL (0.0-0.2); BASO % 0 % (0-3); EOS % 0 % (0-3); HEMATOCRIT 22.8 % (39.0-53.0); HEMOGLOBIN 7.2 g/dL (13.0-17.5); LYMPH # 19.2 x10^3/uL (1.0-4.8); LYMPH % 79 % (24-48); MEAN CORPUSCULAR HEMOGLOBIN 35 pg (25-35); MEAN CORPUSCULAR HGB CONC 32 g/dL (31-37); MEAN CORPUSCULAR VOLUME 111 fL (79-100); MONO % 1 % (0-9); NEUT % 19 % (31-73); RED BLOOD COUNT 2.07 x10^6/uL (4.30-5.70); RED CELL DISTRIBUTION WIDTH 16.7 % (11.5-14.5); RETIC COUNT 12.1 % (0.5-2.5)
[2016-12-19] MEDS: IV NORMAL SALINE 1000ML BAG 1,000 ML IV SCH (05:21)
[2016-12-19 05:34] LABS: PLATELET COUNT < 3 x10^3/uL (140-400)
[2016-12-19 05:52] LABS: CREATININE 1.8 mg/dL (0.7-1.3); GFR 37.5; PHOSPHORUS 4.7 mg/dL (2.6-4.7); POTASSIUM 4.3 mmol/L (3.5-5.1)
[2016-12-19] MEDS: LEVOTHYROXINE 150 MCG TABLET PO SCH (06:03)
--- NOTE | 2016-12-19 06:10 | CONS ---
DATE OF CONSULTATION: 12/18/2016 ATTENDING PHYSICIAN: Dr. Sundar Gamez REASON FOR CONSULTATION: The patient is seen in pulmonary consultation at the request of Dr. Gamez for increasing shortness of air. HISTORY OF PRESENT ILLNESS: The patient is a 71-year-old that was seen by my partner, Dr. Forman in the office approximately a week ago complaining of dyspnea. He was being worked up as an outpatient. Part of his workup included D-dimer. The D-dimer was positive. The patient was due to follow up in the near future, in the interim my office was attempting at calling him today to inform him that the D-dimer was positive and he needed ventilation perfusion lung scan. I was consulted as a consequence of his dyspnea. Since his outpatient evaluation, the patient underwent a CBC, which was totally abnormal. White count was elevated at 21,000, hemoglobin and hematocrit were down and platelet count was down. His INR was elevated. He has been seen by Hematology. Working diagnosis of CLL with ITP. He has also been treated for anemia secondary to autoimmune hemolytic anemia. The patient has been short of breath now for quite some time. He does not utilize oxygen. He has never smoked. 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 He has not had any problems with his pulmonary status in the past. PAST MEDICAL HISTORY: CHF, hypertension, hyperlipidemia, chronic venous insufficiency, previous DVT related to previous total knee arthroplasty, osteoarthritis, gout and hypothyroidism. PAST SURGICAL HISTORY: Status post pacemaker for third-degree heart block, cholecystectomy, hernia repair, total knee replacement bilaterally and previous thyroid resection. FAMILY HISTORY: Remarkable for heart disease. ALLERGIES: No known drug allergies. SOCIAL HISTORY: No history of tobacco or alcoholism. 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 REVIEW OF SYSTEMS: As indicated above, otherwise, a 10-point system was reviewed and negative. He does have clinical symptoms and signs of ONEAL, snoring and waking up frequently from his sleep. He has never had an outpatient polysomnogram. His echocardiogram did reveal pulmonary hypertension estimated at 44 mmHg. PHYSICAL EXAMINATION: GENERAL: Obese individual with a body mass index of 39, no respiratory distress, room air saturation 94%. HEENT: Eyes, the sclerae were nonicteric. NECK: Jugular venous distention was not elevated. No lymphadenopathy. CHEST: Full expansion. LUNGS: Poor airway flow with no wheezes. CARDIOVASCULAR: Regular rate and rhythm with S1, S2, no S3. ABDOMEN: Obese and soft. EXTREMITIES: No clubbing or cyanosis. He had compressive devices on. He did have some edema. NEUROLOGIC: The patient was awake, alert and following commands. A detailed neuro exam was not performed. LABORATORY DATA: Reviewed as indicated above. Chest x-ray was reviewed. There was no infiltrates. Pulmonary hypertension was established by echocardiogram recently measured at 61 mmHg. Ejection fraction was 50-55%. IMPRESSION: 1. Progressive dyspnea, multifactorial secondary to underlying and severe secondary pulmonary hypertension, morbid obesity and deconditioning. 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 3. ITP. 4. Autoimmune hemolytic anemia. 5. Chronic diastolic heart failure. 6. Hypothyroidism. 7. Morbid obesity. 8. Osteoarthritis. 9. Hyperlipidemia. 10. Chronic renal insufficiency. 11. Positive D-dimer. PLAN: 1. As indicated above, the patient will undergo a V/Q scan. He refused a VQ scan earlier as a consequence of claustrophobia. I will be administering benzodiazepine prior to the study: Continue current Hematology recommendation. 2. Oxygen supplementation as needed. 3. Consult nephrology, already performed. 4. Outpatient polysomnogram. I do appreciate the privilege in sharing in the patient's care. ILSA PADILLA MD DR: FREDDY/adonay JOB#: [id number] / [id number]
--- NOTE | 2016-12-19 07:53 | PDOC ---
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 He is currently in wheelchair to go to radiology. No bleeding. Breathing ok at present. 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 Objective Objective Vital Signs Date Time Temp Pulse Resp B/P (MAP) Pulse Ox O2 Delivery O2 Flow Rate FiO2 12/19/16 03:00 97.5 67 17 128/63 (84) 94 97.5 12/18/16 23:00 Room Air Physical Exam Abdomen: Soft, No tenderness, No hepatosplenomegaly, No masses, Other (obese) Heart: Regular rate, Normal S1, Normal S2 Extremities: No clubbing, No cyanosis, No edema, Other (has chronic venous stasis dermatitis) General: Alert, Cooperative, No acute distress HEENT: Atraumatic, Other (exophthalmos) Lungs: Clear to auscultation Neck: Supple Psych/Mental Status: Mental status NL COMMENT palpable axillary nodes, but not bulky Assessment Assessment 1. 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 per lab Just started prednisone and have not seen response yet, but very early Given complexity of situation would also start IVIG 1 gm/kg today and tomorrow Appears to have underlying lymphoproliferative d/o and ultimately rx of that process will likely be necessary He can be transfused if needed, but red cells and plts will be consumed until we are able to shut off the antibody consuming cells, so plts would be held unless he has active bleeding and would hold red cells unless there is more urgent medical need - currently appears comfortable Would need a blood warmer if transfusion needed 2. 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 Has positive doppler, but no acute symptoms. Has prior history so may be chronic clot. In this situation would not anticoagulate given low plts and bleeding risk. Filter could be entertained, but I doubt the risk of acute PE outweight risk of filter given concerns about bleeing and such at least in the short term Will order IVIG and continue current steroid dose. Marrow planned next week Comment Review of Relevant I have reviewed the following items ana maría (where applicable) has been applied. Labs Laboratory Tests Test 12/18/16 12:00 12/18/16 14:18 12/19/16 04:35 White Blood Count 21.0 x10^3/uL (4.0-11.0) 24.4 x10^3/uL (4.0-11.0) Red Blood Count 2.34 x10^6/uL (4.30-5.70) 2.07 x10^6/uL (4.30-5.70) Hemoglobin 8.1 g/dL (13.0-17.5) 7.2 g/dL (13.0-17.5) Hematocrit 25.7 % (39.0-53.0) 22.8 % (39.0-53.0) Mean Corpuscular Volume 110 fL (79-100) 111 fL (79-100) Mean Corpuscular Hemoglobin 35 pg (25-35) 35 pg (25-35) Mean Corpuscular Hemoglobin Concent 32 g/dL (31-37) 32 g/dL (31-37) Red Cell Distribution Width 17.4 % (11.5-14.5) 16.7 % (11.5-14.5) Platelet Count < 3 x10^3/uL (140-400) < 3 x10^3/uL (140-400) Neutrophils (%) (Auto) 20 % (31-73) 19 % (31-73) Lymphocytes (%) (Auto) 76 % (24-48) 79 % (24-48) Monocytes (%) (Auto) 3 % (0-9) 1 % (0-9) Eosinophils (%) (Auto) 1 % (0-3) 0 % (0-3) Basophils (%) (Auto) 1 % (0-3) 0 % (0-3) Neutrophils # (Auto) 4.3 x10^3uL (1.8-7.7) 4.7 x10^3uL (1.8-7.7) Lymphocytes # (Auto) 15.9 x10^3/uL (1.0-4.8) 19.2 x10^3/uL (1.0-4.8) Monocytes # (Auto) 0.5 x10^3/uL (0.0-1.1) 0.3 x10^3/uL (0.0-1.1) Eosinophils # (Auto) 0.1 x10^3/uL (0.0-0.7) 0.1 x10^3/uL (0.0-0.7) Basophils # (Auto) 0.1 x10^3/uL (0.0-0.2) 0.1 x10^3/uL (0.0-0.2) Segmented Neutrophils % 27 % (35-66) Band Neutrophils % 4 % (0-9) Lymphocytes % 61 % (24-48) Atypical Lymphocytes % (Manual) 2 % (0-0) Monocytes % 1 % (0-10) Eosinophils % 3 % (0-5) Basophils % 1 % (0-3) Metamyelocytes % 1 % (0-0) Platelet Estimate Decreased (ADEQUATE) Polychromasia Slight Anisocytosis Slight Reticulocyte Count (auto) 7.6 % (0.5-2.5) 12.1 % (0.5-2.5) Sodium Level 145 mmol/L (136-145) 145 mmol/L (136-145) Potassium Level 3.7 mmol/L (3.5-5.1) 4.3 mmol/L (3.5-5.1) Chloride Level 106 mmol/L (98-107) 109 mmol/L (98-107) Carbon Dioxide Level 25 mmol/L (21-32) 29 mmol/L (21-32) Anion Gap 14 (6-14) 7 (6-14) Blood Urea Nitrogen 32 mg/dL (8-26) 33 mg/dL (8-26) Creatinine 1.8 mg/dL (0.7-1.3) 1.8 mg/dL (0.7-1.3) Estimated GFR (Cockcroft-Gault) 37.5 37.5 BUN/Creatinine Ratio 18 (6-20) Glucose Level 135 mg/dL (70-99) 161 mg/dL (70-99) Lactic Acid Level 2.5 mmol/L (0.4-2.0) Calcium Level 8.3 mg/dL (8.5-10.1) 8.0 mg/dL (8.5-10.1) Ferritin 143 ng/mL (26-388) Total Bilirubin 3.6 mg/dL (0.2-1.0) Direct Bilirubin 0.6 mg/dL (0.0-0.2) Aspartate Amino Transf (AST/SGOT) 45 U/L (15-37) Alanine Aminotransferase (ALT/SGPT) 16 U/L (16-63) Alkaline Phosphatase 96 U/L (46-116) Troponin I Quantitative 0.022 ng/mL (0.000-0.055) Total Protein 5.8 g/dL (6.4-8.2) Albumin 3.4 g/dL (3.4-5.0) 3.0 g/dL (3.4-5.0) Albumin/Globulin Ratio 1.4 (1.0-1.7) Lipase 118 U/L (73-393) Vitamin B12 Level 531 pg/mL (247-911) Serum Folate 5.94 ng/ml (3.2-20.0) Thyroid Stimulating Hormone (TSH) 3.738 uIU/mL (0.358-3.74) Haptoglobin <10 mg/dL (34-200) Prothrombin Time 15.0 SEC (11.7-14.0) Prothromb Time International Ratio 1.3 (0.8-1.1) Activated Partial Thromboplast Time 30 SEC (24-38) Fibrinogen 282 mg/dL (200-440) D-Dimer (Eden) 0.49 ug/mlFEU (0.00-0.50) Iron Level 83 ug/dL (65-175) Total Iron Binding Capacity 283 ug/dL (250-450) Iron Saturation 29 % (15-34) Lactate Dehydrogenase 611 U/L (85-227) 529 U/L (85-227) Hepatitis C Antibody <0.1 s/co ratio HIV (1&2) Antibody Non reactive (Non Reactive) Phosphorus Level 4.7 mg/dL (2.6-4.7) Magnesium Level 2.2 mg/dL (1.8-2.4) Laboratory Tests Test 12/18/16 12:00 12/18/16 14:18 12/19/16 04:35 White Blood Count 21.0 x10^3/uL (4.0-11.0) 24.4 x10^3/uL (4.0-11.0) Red Blood Count 2.34 x10^6/uL (4.30-5.70) 2.07 x10^6/uL (4.30-5.70) Hemoglobin 8.1 g/dL (13.0-17.5) 7.2 g/dL (13.0-17.5) Hematocrit 25.7 % (39.0-53.0) 22.8 % (39.0-53.0) Mean Corpuscular Volume 110 fL (79-100) 111 fL (79-100) Mean Corpuscular Hemoglobin 35 pg (25-35) 35 pg (25-35) Mean Corpuscular Hemoglobin Concent 32 g/dL (31-37) 32 g/dL (31-37) Red Cell Distribution Width 17.4 % (11.5-14.5) 16.7 % (11.5-14.5) Platelet Count < 3 x10^3/uL (140-400) < 3 x10^3/uL (140-400) Neutrophils (%) (Auto) 20 % (31-73) 19 % (31-73) Lymphocytes (%) (Auto) 76 % (24-48) 79 % (24-48) Monocytes (%) (Auto) 3 % (0-9) 1 % (0-9) Eosinophils (%) (Auto) 1 % (0-3) 0 % (0-3) Basophils (%) (Auto) 1 % (0-3) 0 % (0-3) Neutrophils # (Auto) 4.3 x10^3uL (1.8-7.7) 4.7 x10^3uL (1.8-7.7) Lymphocytes # (Auto) 15.9 x10^3/uL (1.0-4.8) 19.2 x10^3/uL (1.0-4.8) Monocytes # (Auto) 0.5 x10^3/uL (0.0-1.1) 0.3 x10^3/uL (0.0-1.1) Eosinophils # (Auto) 0.1 x10^3/uL (0.0-0.7) 0.1 x10^3/uL (0.0-0.7) Basophils # (Auto) 0.1 x10^3/uL (0.0-0.2) 0.1 x10^3/uL (0.0-0.2) Segmented Neutrophils % 27 % (35-66) Band Neutrophils % 4 % (0-9) Lymphocytes % 61 % (24-48) Atypical Lymphocytes % (Manual) 2 % (0-0) Monocytes % 1 % (0-10) Eosinophils % 3 % (0-5) Basophils % 1 % (0-3) Metamyelocytes % 1 % (0-0) Platelet Estimate Decreased (ADEQUATE) Polychromasia Slight Anisocytosis Slight Reticulocyte Count (auto) 7.6 % (0.5-2.5) 12.1 % (0.5-2.5) Sodium Level 145 mmol/L (136-145) 145 mmol/L (136-145) Potassium Level 3.7 mmol/L (3.5-5.1) 4.3 mmol/L (3.5-5.1) Chloride Level 106 mmol/L (98-107) 109 mmol/L (98-107) Carbon Dioxide Level 25 mmol/L (21-32) 29 mmol/L (21-32) Anion Gap 14 (6-14) 7 (6-14) Blood Urea Nitrogen 32 mg/dL (8-26) 33 mg/dL (8-26) Creatinine 1.8 mg/dL (0.7-1.3) 1.8 mg/dL (0.7-1.3) Estimated GFR (Cockcroft-Gault) 37.5 37.5 BUN/Creatinine Ratio 18 (6-20) Glucose Level 135 mg/dL (70-99) 161 mg/dL (70-99) Lactic Acid Level 2.5 mmol/L (0.4-2.0) Calcium Level 8.3 mg/dL (8.5-10.1) 8.0 mg/dL (8.5-10.1) Ferritin 143 ng/mL (26-388) Total Bilirubin 3.6 mg/dL (0.2-1.0) Direct Bilirubin 0.6 mg/dL (0.0-0.2) Aspartate Amino Transf (AST/SGOT) 45 U/L (15-37) Alanine Aminotransferase (ALT/SGPT) 16 U/L (16-63) Alkaline Phosphatase 96 U/L (46-116) Troponin I Quantitative 0.022 ng/mL (0.000-0.055) Total Protein 5.8 g/dL (6.4-8.2) Albumin 3.4 g/dL (3.4-5.0) 3.0 g/dL (3.4-5.0) Albumin/Globulin Ratio 1.4 (1.0-1.7) Lipase 118 U/L (73-393) Vitamin B12 Level 531 pg/mL (247-911) Serum Folate 5.94 ng/ml (3.2-20.0) Thyroid Stimulating Hormone (TSH) 3.738 uIU/mL (0.358-3.74) Haptoglobin <10 mg/dL (34-200) Prothrombin Time 15.0 SEC (11.7-14.0) Prothromb Time International Ratio 1.3 (0.8-1.1) Activated Partial Thromboplast Time 30 SEC (24-38) Fibrinogen 282 mg/dL (200-440) D-Dimer (Eden) 0.49 ug/mlFEU (0.00-0.50) Iron Level 83 ug/dL (65-175) Total Iron Binding Capacity 283 ug/dL (250-450) Iron Saturation 29 % (15-34) Lactate Dehydrogenase 611 U/L (85-227) 529 U/L (85-227) Hepatitis C Antibody <0.1 s/co ratio HIV (1&2) Antibody Non reactive (Non Reactive) Phosphorus Level 4.7 mg/dL (2.6-4.7) Magnesium Level 2.2 mg/dL (1.8-2.4) Medications Current Medications Allopurinol (Zyloprim) 300 mg DAILY PO ; Start 12/19/16 at 09:00 Levothyroxine Sodium (Synthroid) 150 mcg DAILY07 PO Last administered on 06:03; Start 12/19/16 at 07:00 Cyanocobalamin (Vitamin B-12) 1,000 mcg 1X ONCE SQ Last administered on 16:16; Start 12/18/16 at 13:30; Stop 12/18/16 at 13:31; Status DC Prednisone (Prednisone) 120 mg DAILY PO Last administered on 12/18/16 16:16; Start 12/18/16 at 15:30 Magnesium Sulfate/ Dextrose 50 ml @ 25 mls/hr PRN DAILY PRN IV for Mag < 1.7 on am labs; Start 12/18/16 at 15:15 Sodium Chloride 1,000 ml @ 75 mls/hr [id number] IV Last administered on 05:21; Start 12/18/16 at 15:30 Lorazepam (Ativan) 0.5 mg Q8HRS PRN IV ANXIETY / AGITATION Last administered on 12/18/16 17:51; Start 12/18/16 at 16:45 Active Scripts Active Reported Colcrys (Colchicine) 0.6 Mg Tablet 1 Tab PO DAILY Lisinopril-Hctz 20-25 Mg Tab (Lisinopril/Hydrochlorothiazide) 1 Each Tablet 1 Tab PO DAILY Celecoxib 200 Mg Capsule 200 Mg PO PRN PRN Lortab 7.5-325 mg Tablet (Hydrocodone/Acetaminophen) 1 Each Tablet 1 Tab PO PRN Q6HRS PRN Levothyroxine Sodium 150 Mcg Tablet 1 Tab PO DAILY Vitals/I & O Vital Sign - Last 24 Hours 12/18/16 12/18/16 12/18/16 12/18/16 14:00 14:40 16:10 16:40 Temp 97.8 97.9 97.9 97.8 97.9 97.9 Pulse 81 66 69 Resp 18 22 20 B/P (MAP) 114/67 (83) 118/58 (78) 130/66 Pulse Ox 94 91 O2 Delivery Room Air Room Air Room Air 12/18/16 12/18/16 12/18/16 12/18/16 16:55 17:20 19:00 20:00 Temp 97.9 97.7 97.9 97.9 97.7 97.9 Pulse 76 76 71 Resp 22 24 16 B/P (MAP) 136/61 127/60 135/65 (88) Pulse Ox 91 O2 Delivery Room Air Room Air 12/18/16 12/19/16 23:00 03:00 Temp 97.5 97.5 97.5 97.5 Pulse 67 67 Resp 16 17 B/P (MAP) 129/60 (83) 128/63 (84) Pulse Ox 94 94 O2 Delivery Room Air JOSE BROWN MD Dec 19, 2016 07:53
--- NOTE | 2016-12-19 08:14 | RAD ---
EXAM: Chest, 2 views. HISTORY: Shortness of breath. COMPARISON: 12/18/2016. FINDINGS: Frontal and lateral views of the chest are obtained. There is no infiltrate, effusion or pneumothorax. The heart is normal in size. There is a left cardiac pacemaker with the tip in expected position. IMPRESSION: No acute pulmonary finding.
--- NOTE | 2016-12-19 08:18 | RAD ---
EXAM: Renal sonogram. HISTORY: Renal insufficiency. COMPARISON: Sonographic imaging of the kidneys and bladder was performed. FINDINGS: The exam is limited due to motion. The right kidney measures 10.1 cm [id number] and the left kidney measures 11.6 cm [id number]. There is mild renal cortical thinning. No solid or cystic renal lesion is seen. There is no hydronephrosis. The spleen is incidentally enlarged, measuring 25 cm. The aorta is predominant obscured due to bowel gas. The visualized portions the inferior vena cava are patent. The bladder is unremarkable. IMPRESSION: 1. Mild renal cortical thinning. There is no hydronephrosis or solid or cystic renal lesion. 2. Splenomegaly. 3. Limited exam due to motion.
[2016-12-19] MEDS ORDERED: [UNRECOGNIZED DRUG - OTHER] IV ONE (09:00)
[2016-12-19] MEDS ORDERED: IMMUNE GLOBULIN GAMMA IV ONE (09:00)
[2016-12-19 10:26] LABS: ANISOCYTOSIS PRESENT; PLT ESTIMATE DECREASED (ADEQUATE); SMUDGE CELLS PRESENT
[2016-12-19] MEDS: predniSONE 20 MG TABLET PO SCH (10:26)
[2016-12-19] MEDS: ALLOPURINOL 300 MG TABLET. PO SCH (10:26)
[2016-12-19 10:27] LABS: POLYCHROMASIA PRESENT
--- NOTE | 2016-12-19 10:54 | PDOC ---
G I PROGRESS NOTE Subjective No complaints. Objective H/O note reviewed. Physical Exam Lungs clear. RRR Abdomen soft, not tender nor distended. Review of Relevant I have reviewed the following items ana maría (where applicable) has been applied. Labs Laboratory Tests Test 12/18/16 12:00 12/18/16 14:18 12/19/16 04:35 White Blood Count 21.0 x10^3/uL (4.0-11.0) 24.4 x10^3/uL (4.0-11.0) Red Blood Count 2.34 x10^6/uL (4.30-5.70) 2.07 x10^6/uL (4.30-5.70) Hemoglobin 8.1 g/dL (13.0-17.5) 7.2 g/dL (13.0-17.5) Hematocrit 25.7 % (39.0-53.0) 22.8 % (39.0-53.0) Mean Corpuscular Volume 110 fL (79-100) 111 fL (79-100) Mean Corpuscular Hemoglobin 35 pg (25-35) 35 pg (25-35) Mean Corpuscular Hemoglobin Concent 32 g/dL (31-37) 32 g/dL (31-37) Red Cell Distribution Width 17.4 % (11.5-14.5) 16.7 % (11.5-14.5) Platelet Count < 3 x10^3/uL (140-400) < 3 x10^3/uL (140-400) Neutrophils (%) (Auto) 20 % (31-73) 19 % (31-73) Lymphocytes (%) (Auto) 76 % (24-48) 79 % (24-48) Monocytes (%) (Auto) 3 % (0-9) 1 % (0-9) Eosinophils (%) (Auto) 1 % (0-3) 0 % (0-3) Basophils (%) (Auto) 1 % (0-3) 0 % (0-3) Neutrophils # (Auto) 4.3 x10^3uL (1.8-7.7) 4.7 x10^3uL (1.8-7.7) Lymphocytes # (Auto) 15.9 x10^3/uL (1.0-4.8) 19.2 x10^3/uL (1.0-4.8) Monocytes # (Auto) 0.5 x10^3/uL (0.0-1.1) 0.3 x10^3/uL (0.0-1.1) Eosinophils # (Auto) 0.1 x10^3/uL (0.0-0.7) 0.1 x10^3/uL (0.0-0.7) Basophils # (Auto) 0.1 x10^3/uL (0.0-0.2) 0.1 x10^3/uL (0.0-0.2) Segmented Neutrophils % 27 % (35-66) 26 % (35-66) Band Neutrophils % 4 % (0-9) 2 % (0-9) Lymphocytes % 61 % (24-48) 71 % (24-48) Atypical Lymphocytes % (Manual) 2 % (0-0) 1 % (0-0) Monocytes % 1 % (0-10) Eosinophils % 3 % (0-5) Basophils % 1 % (0-3) Metamyelocytes % 1 % (0-0) Platelet Estimate Decreased (ADEQUATE) Decreased (ADEQUATE) Polychromasia Slight Present Anisocytosis Slight Present Reticulocyte Count (auto) 7.6 % (0.5-2.5) 12.1 % (0.5-2.5) Sodium Level 145 mmol/L (136-145) 145 mmol/L (136-145) Potassium Level 3.7 mmol/L (3.5-5.1) 4.3 mmol/L (3.5-5.1) Chloride Level 106 mmol/L (98-107) 109 mmol/L (98-107) Carbon Dioxide Level 25 mmol/L (21-32) 29 mmol/L (21-32) Anion Gap 14 (6-14) 7 (6-14) Blood Urea Nitrogen 32 mg/dL (8-26) 33 mg/dL (8-26) Creatinine 1.8 mg/dL (0.7-1.3) 1.8 mg/dL (0.7-1.3) Estimated GFR (Cockcroft-Gault) 37.5 37.5 BUN/Creatinine Ratio 18 (6-20) Glucose Level 135 mg/dL (70-99) 161 mg/dL (70-99) Lactic Acid Level 2.5 mmol/L (0.4-2.0) Calcium Level 8.3 mg/dL (8.5-10.1) 8.0 mg/dL (8.5-10.1) Ferritin 143 ng/mL (26-388) Total Bilirubin 3.6 mg/dL (0.2-1.0) Direct Bilirubin 0.6 mg/dL (0.0-0.2) Aspartate Amino Transf (AST/SGOT) 45 U/L (15-37) Alanine Aminotransferase (ALT/SGPT) 16 U/L (16-63) Alkaline Phosphatase 96 U/L (46-116) Troponin I Quantitative 0.022 ng/mL (0.000-0.055) Total Protein 5.8 g/dL (6.4-8.2) Albumin 3.4 g/dL (3.4-5.0) 3.0 g/dL (3.4-5.0) Albumin/Globulin Ratio 1.4 (1.0-1.7) Lipase 118 U/L (73-393) Vitamin B12 Level 531 pg/mL (247-911) Serum Folate 5.94 ng/ml (3.2-20.0) Thyroid Stimulating Hormone (TSH) 3.738 uIU/mL (0.358-3.74) Haptoglobin <10 mg/dL (34-200) Prothrombin Time 15.0 SEC (11.7-14.0) Prothromb Time International Ratio 1.3 (0.8-1.1) Activated Partial Thromboplast Time 30 SEC (24-38) Fibrinogen 282 mg/dL (200-440) D-Dimer (Eden) 0.49 ug/mlFEU (0.00-0.50) Iron Level 83 ug/dL (65-175) Total Iron Binding Capacity 283 ug/dL (250-450) Iron Saturation 29 % (15-34) Lactate Dehydrogenase 611 U/L (85-227) 529 U/L (85-227) Hepatitis C Antibody <0.1 s/co ratio HIV (1&2) Antibody Non reactive (Non Reactive) Smudge Cells Present Macrocytosis Present Phosphorus Level 4.7 mg/dL (2.6-4.7) Magnesium Level 2.2 mg/dL (1.8-2.4) Laboratory Tests Test 12/18/16 12:00 12/18/16 14:18 12/19/16 04:35 White Blood Count 21.0 x10^3/uL (4.0-11.0) 24.4 x10^3/uL (4.0-11.0) Red Blood Count 2.34 x10^6/uL (4.30-5.70) 2.07 x10^6/uL (4.30-5.70) Hemoglobin 8.1 g/dL (13.0-17.5) 7.2 g/dL (13.0-17.5) Hematocrit 25.7 % (39.0-53.0) 22.8 % (39.0-53.0) Mean Corpuscular Volume 110 fL (79-100) 111 fL (79-100) Mean Corpuscular Hemoglobin 35 pg (25-35) 35 pg (25-35) Mean Corpuscular Hemoglobin Concent 32 g/dL (31-37) 32 g/dL (31-37) Red Cell Distribution Width 17.4 % (11.5-14.5) 16.7 % (11.5-14.5) Platelet Count < 3 x10^3/uL (140-400) < 3 x10^3/uL (140-400) Neutrophils (%) (Auto) 20 % (31-73) 19 % (31-73) Lymphocytes (%) (Auto) 76 % (24-48) 79 % (24-48) Monocytes (%) (Auto) 3 % (0-9) 1 % (0-9) Eosinophils (%) (Auto) 1 % (0-3) 0 % (0-3) Basophils (%) (Auto) 1 % (0-3) 0 % (0-3) Neutrophils # (Auto) 4.3 x10^3uL (1.8-7.7) 4.7 x10^3uL (1.8-7.7) Lymphocytes # (Auto) 15.9 x10^3/uL (1.0-4.8) 19.2 x10^3/uL (1.0-4.8) Monocytes # (Auto) 0.5 x10^3/uL (0.0-1.1) 0.3 x10^3/uL (0.0-1.1) Eosinophils # (Auto) 0.1 x10^3/uL (0.0-0.7) 0.1 x10^3/uL (0.0-0.7) Basophils # (Auto) 0.1 x10^3/uL (0.0-0.2) 0.1 x10^3/uL (0.0-0.2) Segmented Neutrophils % 27 % (35-66) 26 % (35-66) Band Neutrophils % 4 % (0-9) 2 % (0-9) Lymphocytes % 61 % (24-48) 71 % (24-48) Atypical Lymphocytes % (Manual) 2 % (0-0) 1 % (0-0) Monocytes % 1 % (0-10) Eosinophils % 3 % (0-5) Basophils % 1 % (0-3) Metamyelocytes % 1 % (0-0) Platelet Estimate Decreased (ADEQUATE) Decreased (ADEQUATE) Polychromasia Slight Present Anisocytosis Slight Present Reticulocyte Count (auto) 7.6 % (0.5-2.5) 12.1 % (0.5-2.5) Sodium Level 145 mmol/L (136-145) 145 mmol/L (136-145) Potassium Level 3.7 mmol/L (3.5-5.1) 4.3 mmol/L (3.5-5.1) Chloride Level 106 mmol/L (98-107) 109 mmol/L (98-107) Carbon Dioxide Level 25 mmol/L (21-32) 29 mmol/L (21-32) Anion Gap 14 (6-14) 7 (6-14) Blood Urea Nitrogen 32 mg/dL (8-26) 33 mg/dL (8-26) Creatinine 1.8 mg/dL (0.7-1.3) 1.8 mg/dL (0.7-1.3) Estimated GFR (Cockcroft-Gault) 37.5 37.5 BUN/Creatinine Ratio 18 (6-20) Glucose Level 135 mg/dL (70-99) 161 mg/dL (70-99) Lactic Acid Level 2.5 mmol/L (0.4-2.0) Calcium Level 8.3 mg/dL (8.5-10.1) 8.0 mg/dL (8.5-10.1) Ferritin 143 ng/mL (26-388) Total Bilirubin 3.6 mg/dL (0.2-1.0) Direct Bilirubin 0.6 mg/dL (0.0-0.2) Aspartate Amino Transf (AST/SGOT) 45 U/L (15-37) Alanine Aminotransferase (ALT/SGPT) 16 U/L (16-63) Alkaline Phosphatase 96 U/L (46-116) Troponin I Quantitative 0.022 ng/mL (0.000-0.055) Total Protein 5.8 g/dL (6.4-8.2) Albumin 3.4 g/dL (3.4-5.0) 3.0 g/dL (3.4-5.0) Albumin/Globulin Ratio 1.4 (1.0-1.7) Lipase 118 U/L (73-393) Vitamin B12 Level 531 pg/mL (247-911) Serum Folate 5.94 ng/ml (3.2-20.0) Thyroid Stimulating Hormone (TSH) 3.738 uIU/mL (0.358-3.74) Haptoglobin <10 mg/dL (34-200) Prothrombin Time 15.0 SEC (11.7-14.0) Prothromb Time International Ratio 1.3 (0.8-1.1) Activated Partial Thromboplast Time 30 SEC (24-38) Fibrinogen 282 mg/dL (200-440) D-Dimer (Eden) 0.49 ug/mlFEU (0.00-0.50) Iron Level 83 ug/dL (65-175) Total Iron Binding Capacity 283 ug/dL (250-450) Iron Saturation 29 % (15-34) Lactate Dehydrogenase 611 U/L (85-227) 529 U/L (85-227) Hepatitis C Antibody <0.1 s/co ratio HIV (1&2) Antibody Non reactive (Non Reactive) Smudge Cells Present Macrocytosis Present Phosphorus Level 4.7 mg/dL (2.6-4.7) Magnesium Level 2.2 mg/dL (1.8-2.4) Iron studies normal. Medications Current Medications Allopurinol (Zyloprim) 300 mg DAILY PO Last administered on 12/19/16t 10:26; Start 12/19/16 at 09:00 Levothyroxine Sodium (Synthroid) 150 mcg DAILY07 PO Last administered on 06:03; Start 12/19/16 at 07:00 Cyanocobalamin (Vitamin B-12) 1,000 mcg 1X ONCE SQ Last administered on 16:16; Start 12/18/16 at 13:30; Stop 12/18/16 at 13:31; Status DC Prednisone (Prednisone) 120 mg DAILY PO Last administered on 12/19/16 10:26; Start 12/18/16 at 15:30 Magnesium Sulfate/ Dextrose 50 ml @ 25 mls/hr PRN DAILY PRN IV for Mag < 1.7 on am labs; Start 12/18/16 at 15:15 Sodium Chloride 1,000 ml @ 75 mls/hr [id number] IV Last administered on 05:21; Start 12/18/16 at 15:30 Lorazepam (Ativan) 0.5 mg Q8HRS PRN IV ANXIETY / AGITATION Last administered on 12/18/16 17:51; Start 12/18/16 at 16:45 Immune Globulin 60 gm/Immune Globulin 40 gm/ Miscellaneous 1,001 ml @ 75 mls/ hr 1X ONCE IV ; Start 12/19/16 at 09:00; Stop 12/19/16 at 22:20 Active Scripts Active Reported Colcrys (Colchicine) 0.6 Mg Tablet 1 Tab PO DAILY Lisinopril-Hctz 20-25 Mg Tab (Lisinopril/Hydrochlorothiazide) 1 Each Tablet 1 Tab PO DAILY Celecoxib 200 Mg Capsule 200 Mg PO PRN PRN Lortab 7.5-325 mg Tablet (Hydrocodone/Acetaminophen) 1 Each Tablet 1 Tab PO PRN Q6HRS PRN Levothyroxine Sodium 150 Mcg Tablet 1 Tab PO DAILY Vitals/I & O Vital Sign - Last 24 Hours 12/18/16 12/18/16 12/18/16 12/18/16 14:00 14:40 16:10 16:40 Temp 97.8 97.9 97.9 97.8 97.9 97.9 Pulse 81 66 69 Resp 18 22 20 B/P (MAP) 114/67 (83) 118/58 (78) 130/66 Pulse Ox 94 91 O2 Delivery Room Air Room Air Room Air 12/18/16 12/18/16 12/18/16 12/18/16 16:55 17:20 19:00 20:00 Temp 97.9 97.7 97.9 97.9 97.7 97.9 Pulse 76 76 71 Resp 22 24 16 B/P (MAP) 136/61 127/60 135/65 (88) Pulse Ox 91 O2 Delivery Room Air Room Air 12/18/16 12/19/16 12/19/16 12/19/16 23:00 03:00 07:00 10:41 Temp 97.5 97.5 97.7 97.5 97.5 97.7 Pulse 67 67 70 85 Resp 16 17 20 20 B/P (MAP) 129/60 (83) 128/63 (84) 121/57 (78) 118/61 (80) Pulse Ox 94 94 93 95 O2 Delivery Room Air Room Air Room Air Assessment Hemolytic anemia. Immune thrombocytopenia Lymphoproliferative disorder. Plan of Care: Continue current Tx, Mgmt Plan of Care Note Will follow peripherally. OLIVER OTT MD Dec 19, 2016 10:54
--- NOTE | 2016-12-19 11:48 | PDOC ---
PULMONARY PROGRESS NOTES Subjective PT WITH NO HEMOPTYSIS NO INCREASE SOA Vitals Vital Signs Date Time Temp Pulse Resp B/P (MAP) Pulse Ox O2 Delivery O2 Flow Rate FiO2 12/19/16 10:41 85 20 118/61 (80) 95 Room Air 12/19/16 07:00 97.7 97.7 ROS: No Nausea, No Chest Pain, No Abdominal Pain, No Increase Cough General: Alert Lungs: Clear Cardiovascular: S1, S2 Abdomen: Soft, Non-tender Neuro Exam: Alert Extremities: No Edema Skin: Warm Labs Laboratory Tests Test 12/18/16 12:00 12/18/16 14:18 12/19/16 04:35 White Blood Count 21.0 x10^3/uL (4.0-11.0) 24.4 x10^3/uL (4.0-11.0) Red Blood Count 2.34 x10^6/uL (4.30-5.70) 2.07 x10^6/uL (4.30-5.70) Hemoglobin 8.1 g/dL (13.0-17.5) 7.2 g/dL (13.0-17.5) Hematocrit 25.7 % (39.0-53.0) 22.8 % (39.0-53.0) Mean Corpuscular Volume 110 fL (79-100) 111 fL (79-100) Mean Corpuscular Hemoglobin 35 pg (25-35) 35 pg (25-35) Mean Corpuscular Hemoglobin Concent 32 g/dL (31-37) 32 g/dL (31-37) Red Cell Distribution Width 17.4 % (11.5-14.5) 16.7 % (11.5-14.5) Platelet Count < 3 x10^3/uL (140-400) < 3 x10^3/uL (140-400) Neutrophils (%) (Auto) 20 % (31-73) 19 % (31-73) Lymphocytes (%) (Auto) 76 % (24-48) 79 % (24-48) Monocytes (%) (Auto) 3 % (0-9) 1 % (0-9) Eosinophils (%) (Auto) 1 % (0-3) 0 % (0-3) Basophils (%) (Auto) 1 % (0-3) 0 % (0-3) Neutrophils # (Auto) 4.3 x10^3uL (1.8-7.7) 4.7 x10^3uL (1.8-7.7) Lymphocytes # (Auto) 15.9 x10^3/uL (1.0-4.8) 19.2 x10^3/uL (1.0-4.8) Monocytes # (Auto) 0.5 x10^3/uL (0.0-1.1) 0.3 x10^3/uL (0.0-1.1) Eosinophils # (Auto) 0.1 x10^3/uL (0.0-0.7) 0.1 x10^3/uL (0.0-0.7) Basophils # (Auto) 0.1 x10^3/uL (0.0-0.2) 0.1 x10^3/uL (0.0-0.2) Segmented Neutrophils % 27 % (35-66) 26 % (35-66) Band Neutrophils % 4 % (0-9) 2 % (0-9) Lymphocytes % 61 % (24-48) 71 % (24-48) Atypical Lymphocytes % (Manual) 2 % (0-0) 1 % (0-0) Monocytes % 1 % (0-10) Eosinophils % 3 % (0-5) Basophils % 1 % (0-3) Metamyelocytes % 1 % (0-0) Platelet Estimate Decreased (ADEQUATE) Decreased (ADEQUATE) Polychromasia Slight Present Anisocytosis Slight Present Reticulocyte Count (auto) 7.6 % (0.5-2.5) 12.1 % (0.5-2.5) Sodium Level 145 mmol/L (136-145) 145 mmol/L (136-145) Potassium Level 3.7 mmol/L (3.5-5.1) 4.3 mmol/L (3.5-5.1) Chloride Level 106 mmol/L (98-107) 109 mmol/L (98-107) Carbon Dioxide Level 25 mmol/L (21-32) 29 mmol/L (21-32) Anion Gap 14 (6-14) 7 (6-14) Blood Urea Nitrogen 32 mg/dL (8-26) 33 mg/dL (8-26) Creatinine 1.8 mg/dL (0.7-1.3) 1.8 mg/dL (0.7-1.3) Estimated GFR (Cockcroft-Gault) 37.5 37.5 BUN/Creatinine Ratio 18 (6-20) Glucose Level 135 mg/dL (70-99) 161 mg/dL (70-99) Lactic Acid Level 2.5 mmol/L (0.4-2.0) Calcium Level 8.3 mg/dL (8.5-10.1) 8.0 mg/dL (8.5-10.1) Ferritin 143 ng/mL (26-388) Total Bilirubin 3.6 mg/dL (0.2-1.0) Direct Bilirubin 0.6 mg/dL (0.0-0.2) Aspartate Amino Transf (AST/SGOT) 45 U/L (15-37) Alanine Aminotransferase (ALT/SGPT) 16 U/L (16-63) Alkaline Phosphatase 96 U/L (46-116) Troponin I Quantitative 0.022 ng/mL (0.000-0.055) Total Protein 5.8 g/dL (6.4-8.2) Albumin 3.4 g/dL (3.4-5.0) 3.0 g/dL (3.4-5.0) Albumin/Globulin Ratio 1.4 (1.0-1.7) Lipase 118 U/L (73-393) Vitamin B12 Level 531 pg/mL (247-911) Serum Folate 5.94 ng/ml (3.2-20.0) Thyroid Stimulating Hormone (TSH) 3.738 uIU/mL (0.358-3.74) Haptoglobin <10 mg/dL (34-200) Prothrombin Time 15.0 SEC (11.7-14.0) Prothromb Time International Ratio 1.3 (0.8-1.1) Activated Partial Thromboplast Time 30 SEC (24-38) Fibrinogen 282 mg/dL (200-440) D-Dimer (Eden) 0.49 ug/mlFEU (0.00-0.50) Iron Level 83 ug/dL (65-175) Total Iron Binding Capacity 283 ug/dL (250-450) Iron Saturation 29 % (15-34) Lactate Dehydrogenase 611 U/L (85-227) 529 U/L (85-227) Hepatitis C Antibody <0.1 s/co ratio HIV (1&2) Antibody Non reactive (Non Reactive) Smudge Cells Present Macrocytosis Present Phosphorus Level 4.7 mg/dL (2.6-4.7) Magnesium Level 2.2 mg/dL (1.8-2.4) Laboratory Tests Test 12/18/16 12:00 12/18/16 14:18 12/19/16 04:35 White Blood Count 21.0 x10^3/uL (4.0-11.0) 24.4 x10^3/uL (4.0-11.0) Red Blood Count 2.34 x10^6/uL (4.30-5.70) 2.07 x10^6/uL (4.30-5.70) Hemoglobin 8.1 g/dL (13.0-17.5) 7.2 g/dL (13.0-17.5) Hematocrit 25.7 % (39.0-53.0) 22.8 % (39.0-53.0) Mean Corpuscular Volume 110 fL (79-100) 111 fL (79-100) Mean Corpuscular Hemoglobin 35 pg (25-35) 35 pg (25-35) Mean Corpuscular Hemoglobin Concent 32 g/dL (31-37) 32 g/dL (31-37) Red Cell Distribution Width 17.4 % (11.5-14.5) 16.7 % (11.5-14.5) Platelet Count < 3 x10^3/uL (140-400) < 3 x10^3/uL (140-400) Neutrophils (%) (Auto) 20 % (31-73) 19 % (31-73) Lymphocytes (%) (Auto) 76 % (24-48) 79 % (24-48) Monocytes (%) (Auto) 3 % (0-9) 1 % (0-9) Eosinophils (%) (Auto) 1 % (0-3) 0 % (0-3) Basophils (%) (Auto) 1 % (0-3) 0 % (0-3) Neutrophils # (Auto) 4.3 x10^3uL (1.8-7.7) 4.7 x10^3uL (1.8-7.7) Lymphocytes # (Auto) 15.9 x10^3/uL (1.0-4.8) 19.2 x10^3/uL (1.0-4.8) Monocytes # (Auto) 0.5 x10^3/uL (0.0-1.1) 0.3 x10^3/uL (0.0-1.1) Eosinophils # (Auto) 0.1 x10^3/uL (0.0-0.7) 0.1 x10^3/uL (0.0-0.7) Basophils # (Auto) 0.1 x10^3/uL (0.0-0.2) 0.1 x10^3/uL (0.0-0.2) Segmented Neutrophils % 27 % (35-66) 26 % (35-66) Band Neutrophils % 4 % (0-9) 2 % (0-9) Lymphocytes % 61 % (24-48) 71 % (24-48) Atypical Lymphocytes % (Manual) 2 % (0-0) 1 % (0-0) Monocytes % 1 % (0-10) Eosinophils % 3 % (0-5) Basophils % 1 % (0-3) Metamyelocytes % 1 % (0-0) Platelet Estimate Decreased (ADEQUATE) Decreased (ADEQUATE) Polychromasia Slight Present Anisocytosis Slight Present Reticulocyte Count (auto) 7.6 % (0.5-2.5) 12.1 % (0.5-2.5) Sodium Level 145 mmol/L (136-145) 145 mmol/L (136-145) Potassium Level 3.7 mmol/L (3.5-5.1) 4.3 mmol/L (3.5-5.1) Chloride Level 106 mmol/L (98-107) 109 mmol/L (98-107) Carbon Dioxide Level 25 mmol/L (21-32) 29 mmol/L (21-32) Anion Gap 14 (6-14) 7 (6-14) Blood Urea Nitrogen 32 mg/dL (8-26) 33 mg/dL (8-26) Creatinine 1.8 mg/dL (0.7-1.3) 1.8 mg/dL (0.7-1.3) Estimated GFR (Cockcroft-Gault) 37.5 37.5 BUN/Creatinine Ratio 18 (6-20) Glucose Level 135 mg/dL (70-99) 161 mg/dL (70-99) Lactic Acid Level 2.5 mmol/L (0.4-2.0) Calcium Level 8.3 mg/dL (8.5-10.1) 8.0 mg/dL (8.5-10.1) Ferritin 143 ng/mL (26-388) Total Bilirubin 3.6 mg/dL (0.2-1.0) Direct Bilirubin 0.6 mg/dL (0.0-0.2) Aspartate Amino Transf (AST/SGOT) 45 U/L (15-37) Alanine Aminotransferase (ALT/SGPT) 16 U/L (16-63) Alkaline Phosphatase 96 U/L (46-116) Troponin I Quantitative 0.022 ng/mL (0.000-0.055) Total Protein 5.8 g/dL (6.4-8.2) Albumin 3.4 g/dL (3.4-5.0) 3.0 g/dL (3.4-5.0) Albumin/Globulin Ratio 1.4 (1.0-1.7) Lipase 118 U/L (73-393) Vitamin B12 Level 531 pg/mL (247-911) Serum Folate 5.94 ng/ml (3.2-20.0) Thyroid Stimulating Hormone (TSH) 3.738 uIU/mL (0.358-3.74) Haptoglobin <10 mg/dL (34-200) Prothrombin Time 15.0 SEC (11.7-14.0) Prothromb Time International Ratio 1.3 (0.8-1.1) Activated Partial Thromboplast Time 30 SEC (24-38) Fibrinogen 282 mg/dL (200-440) D-Dimer (Eden) 0.49 ug/mlFEU (0.00-0.50) Iron Level 83 ug/dL (65-175) Total Iron Binding Capacity 283 ug/dL (250-450) Iron Saturation 29 % (15-34) Lactate Dehydrogenase 611 U/L (85-227) 529 U/L (85-227) Hepatitis C Antibody <0.1 s/co ratio HIV (1&2) Antibody Non reactive (Non Reactive) Smudge Cells Present Macrocytosis Present Phosphorus Level 4.7 mg/dL (2.6-4.7) Magnesium Level 2.2 mg/dL (1.8-2.4) Medications Active Scripts Medications Dose Route/Sig Max Daily Dose Days Date Category Colcrys (Colchicine) 0.6 Mg Tablet 1 Tab PO DAILY 04/30/14 Reported Lisinopril-Hctz 20-25 Mg Tab (Lisinopril/Hydrochlorothiazide) 1 Each Tablet 1 Tab PO DAILY 04/30/14 Reported Celecoxib 200 Mg Capsule 200 Mg PO PRN PRN 04/30/14 Reported Lortab 7.5-325 mg Tablet (Hydrocodone/Acetaminophen) 1 Each Tablet 1 Tab PO PRN Q6HRS PRN 01/02/14 Reported Levothyroxine Sodium 150 Mcg Tablet 1 Tab PO DAILY 01/02/14 Reported Impression . 1. Progressive dyspnea, multifactorial secondary to underlying and severe secondary pulmonary hypertension, morbid obesity and deconditioning. 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 3. ITP. 4. Autoimmune hemolytic anemia. 5. Chronic diastolic heart failure. 6. Hypothyroidism. 7. Morbid obesity. 8. Osteoarthritis. 9. Hyperlipidemia. 10. Chronic renal insufficiency. 11. Positive D-dimer. IMPRESSION: Low probability study. V/Q IMPRESSION: DVT is seen involving the right popliteal vein and right superficial femoral vein. Plan . 1. Platelets low will hold off on anticoagulation, may benefit from IVC IN FUTURE IF NEEDED CAN TRANSFUSE PRIOR TO PROCEDURE 2. Oxygen supplementation as needed. 3. Consult nephrology, already performed. 4. Outpatient polysomnogram. ILSA PADILLA MD Dec 19, 2016 11:48
--- NOTE | 2016-12-19 14:32 | PDOC ---
SUBJECTIVE Subjective sitting on side of bed eating lunch, no new complaints OBJECTIVE Vital Signs Vital Signs Date Time Temp Pulse Resp B/P (MAP) Pulse Ox O2 Delivery O2 Flow Rate FiO2 12/19/16 12:50 97.7 65 18 109/54 (72) 94 Room Air 97.7 12/19/16 12:35 66 18 113/47 (69) 92 Room Air 12/19/16 12:20 66 18 111/52 (71) 92 Room Air 12/19/16 11:55 75 18 117/46 (69) 93 Room Air 12/19/16 10:41 85 20 118/61 (80) 95 Room Air 12/19/16 08:00 Room Air 12/19/16 07:00 97.7 70 20 121/57 (78) 93 Room Air 97.7 12/19/16 03:00 97.5 67 17 128/63 (84) 94 97.5 12/18/16 23:00 97.5 67 16 129/60 (83) 94 Room Air 97.5 12/18/16 20:00 Room Air 12/18/16 19:00 97.9 71 16 135/65 (88) 91 Room Air 97.9 12/18/16 17:20 97.7 76 24 127/60 97.7 12/18/16 16:55 97.9 76 22 136/61 97.9 12/18/16 16:40 97.9 69 20 130/66 97.9 12/18/16 16:10 97.9 66 22 118/58 (78) 91 Room Air 97.9 12/18/16 14:40 97.8 81 18 114/67 (83) 94 Room Air 97.8 PHYSICAL EXAM Physical Exam lungs clear heart RRR abd soft no pain ext + edema mild but worse on right, ecchymosis LE and upper extremities as well ASSESSMENT/PLAN Assessment/Plan 1. ITP and acute hemolytic anemia with underlying recently diagnosed myeloproliferative disorder , on steroids and Immunoglobulin 2- CKD check abd sono 3- DVT right lower extremity but not sure if acute or chronic, no PE agree with oncology on filter , contraindication for anticoagulation , discussed with Dr. Blood as well 4- CAD 5-HTN 6-gout 7-acquired hypothyroidism after treatment or Grave's disease Problems: COMMENT Lab Laboratory Tests Test 12/19/16 04:35 White Blood Count 24.4 x10^3/uL (4.0-11.0) Red Blood Count 2.07 x10^6/uL (4.30-5.70) Hemoglobin 7.2 g/dL (13.0-17.5) Hematocrit 22.8 % (39.0-53.0) Mean Corpuscular Volume 111 fL (79-100) Mean Corpuscular Hemoglobin 35 pg (25-35) Mean Corpuscular Hemoglobin Concent 32 g/dL (31-37) Red Cell Distribution Width 16.7 % (11.5-14.5) Platelet Count < 3 x10^3/uL (140-400) Neutrophils (%) (Auto) 19 % (31-73) Lymphocytes (%) (Auto) 79 % (24-48) Monocytes (%) (Auto) 1 % (0-9) Eosinophils (%) (Auto) 0 % (0-3) Basophils (%) (Auto) 0 % (0-3) Neutrophils # (Auto) 4.7 x10^3uL (1.8-7.7) Lymphocytes # (Auto) 19.2 x10^3/uL (1.0-4.8) Monocytes # (Auto) 0.3 x10^3/uL (0.0-1.1) Eosinophils # (Auto) 0.1 x10^3/uL (0.0-0.7) Basophils # (Auto) 0.1 x10^3/uL (0.0-0.2) Segmented Neutrophils % 26 % (35-66) Band Neutrophils % 2 % (0-9) Lymphocytes % 71 % (24-48) Atypical Lymphocytes % (Manual) 1 % (0-0) Smudge Cells Present Platelet Estimate Decreased (ADEQUATE) Polychromasia Present Anisocytosis Present Macrocytosis Present Reticulocyte Count (auto) 12.1 % (0.5-2.5) Sodium Level 145 mmol/L (136-145) Potassium Level 4.3 mmol/L (3.5-5.1) Chloride Level 109 mmol/L (98-107) Carbon Dioxide Level 29 mmol/L (21-32) Anion Gap 7 (6-14) Blood Urea Nitrogen 33 mg/dL (8-26) Creatinine 1.8 mg/dL (0.7-1.3) Estimated GFR (Cockcroft-Gault) 37.5 Glucose Level 161 mg/dL (70-99) Calcium Level 8.0 mg/dL (8.5-10.1) Phosphorus Level 4.7 mg/dL (2.6-4.7) Magnesium Level 2.2 mg/dL (1.8-2.4) Lactate Dehydrogenase 529 U/L (85-227) Albumin 3.0 g/dL (3.4-5.0) JOAO SOSA MD Dec 19, 2016 14:32
--- NOTE | 2016-12-19 15:02 | PDOC ---
PROGRESS NOTES Subjective Subjective SEEN IN FOLLOW UP OF ARF/CKD Objective Objective Vital Signs Date Time Temp Pulse Resp B/P (MAP) Pulse Ox O2 Delivery O2 Flow Rate FiO2 12/19/16 12:50 97.7 65 18 109/54 (72) 94 Room Air 97.7 Physical Exam Abdomen: Normal bowel sounds, Soft, No tenderness, No hepatosplenomegaly, No masses Heart: Regular rate, Normal S1, Normal S2, No murmurs, Gallops Extremities: No clubbing, No cyanosis, No edema, Normal pulses, No tenderness/ swelling General: Alert, Oriented X3, Cooperative, No acute distress Lungs: Clear to auscultation, Normal air movement Psych/Mental Status: Mental status NL, Mood NL Diagnosis RENAL FAILURE: Acute Plan Plan of Care RENAL US REVEALS NO EVIDENCE OF OBSTRUCTION. CONT IVF Comment Review of Relevant I have reviewed the following items ana maría (where applicable) has been applied. Labs Laboratory Tests Test 12/18/16 12:00 12/18/16 14:18 12/19/16 04:35 White Blood Count 21.0 x10^3/uL (4.0-11.0) 24.4 x10^3/uL (4.0-11.0) Red Blood Count 2.34 x10^6/uL (4.30-5.70) 2.07 x10^6/uL (4.30-5.70) Hemoglobin 8.1 g/dL (13.0-17.5) 7.2 g/dL (13.0-17.5) Hematocrit 25.7 % (39.0-53.0) 22.8 % (39.0-53.0) Mean Corpuscular Volume 110 fL (79-100) 111 fL (79-100) Mean Corpuscular Hemoglobin 35 pg (25-35) 35 pg (25-35) Mean Corpuscular Hemoglobin Concent 32 g/dL (31-37) 32 g/dL (31-37) Red Cell Distribution Width 17.4 % (11.5-14.5) 16.7 % (11.5-14.5) Platelet Count < 3 x10^3/uL (140-400) < 3 x10^3/uL (140-400) Neutrophils (%) (Auto) 20 % (31-73) 19 % (31-73) Lymphocytes (%) (Auto) 76 % (24-48) 79 % (24-48) Monocytes (%) (Auto) 3 % (0-9) 1 % (0-9) Eosinophils (%) (Auto) 1 % (0-3) 0 % (0-3) Basophils (%) (Auto) 1 % (0-3) 0 % (0-3) Neutrophils # (Auto) 4.3 x10^3uL (1.8-7.7) 4.7 x10^3uL (1.8-7.7) Lymphocytes # (Auto) 15.9 x10^3/uL (1.0-4.8) 19.2 x10^3/uL (1.0-4.8) Monocytes # (Auto) 0.5 x10^3/uL (0.0-1.1) 0.3 x10^3/uL (0.0-1.1) Eosinophils # (Auto) 0.1 x10^3/uL (0.0-0.7) 0.1 x10^3/uL (0.0-0.7) Basophils # (Auto) 0.1 x10^3/uL (0.0-0.2) 0.1 x10^3/uL (0.0-0.2) Segmented Neutrophils % 27 % (35-66) 26 % (35-66) Band Neutrophils % 4 % (0-9) 2 % (0-9) Lymphocytes % 61 % (24-48) 71 % (24-48) Atypical Lymphocytes % (Manual) 2 % (0-0) 1 % (0-0) Monocytes % 1 % (0-10) Eosinophils % 3 % (0-5) Basophils % 1 % (0-3) Metamyelocytes % 1 % (0-0) Platelet Estimate Decreased (ADEQUATE) Decreased (ADEQUATE) Polychromasia Slight Present Anisocytosis Slight Present Reticulocyte Count (auto) 7.6 % (0.5-2.5) 12.1 % (0.5-2.5) Sodium Level 145 mmol/L (136-145) 145 mmol/L (136-145) Potassium Level 3.7 mmol/L (3.5-5.1) 4.3 mmol/L (3.5-5.1) Chloride Level 106 mmol/L (98-107) 109 mmol/L (98-107) Carbon Dioxide Level 25 mmol/L (21-32) 29 mmol/L (21-32) Anion Gap 14 (6-14) 7 (6-14) Blood Urea Nitrogen 32 mg/dL (8-26) 33 mg/dL (8-26) Creatinine 1.8 mg/dL (0.7-1.3) 1.8 mg/dL (0.7-1.3) Estimated GFR (Cockcroft-Gault) 37.5 37.5 BUN/Creatinine Ratio 18 (6-20) Glucose Level 135 mg/dL (70-99) 161 mg/dL (70-99) Lactic Acid Level 2.5 mmol/L (0.4-2.0) Calcium Level 8.3 mg/dL (8.5-10.1) 8.0 mg/dL (8.5-10.1) Ferritin 143 ng/mL (26-388) Total Bilirubin 3.6 mg/dL (0.2-1.0) Direct Bilirubin 0.6 mg/dL (0.0-0.2) Aspartate Amino Transf (AST/SGOT) 45 U/L (15-37) Alanine Aminotransferase (ALT/SGPT) 16 U/L (16-63) Alkaline Phosphatase 96 U/L (46-116) Troponin I Quantitative 0.022 ng/mL (0.000-0.055) Total Protein 5.8 g/dL (6.4-8.2) Albumin 3.4 g/dL (3.4-5.0) 3.0 g/dL (3.4-5.0) Albumin/Globulin Ratio 1.4 (1.0-1.7) Lipase 118 U/L (73-393) Vitamin B12 Level 531 pg/mL (247-911) Serum Folate 5.94 ng/ml (3.2-20.0) Thyroid Stimulating Hormone (TSH) 3.738 uIU/mL (0.358-3.74) Haptoglobin <10 mg/dL (34-200) Prothrombin Time 15.0 SEC (11.7-14.0) Prothromb Time International Ratio 1.3 (0.8-1.1) Activated Partial Thromboplast Time 30 SEC (24-38) Fibrinogen 282 mg/dL (200-440) D-Dimer (Eden) 0.49 ug/mlFEU (0.00-0.50) Iron Level 83 ug/dL (65-175) Total Iron Binding Capacity 283 ug/dL (250-450) Iron Saturation 29 % (15-34) Lactate Dehydrogenase 611 U/L (85-227) 529 U/L (85-227) Hepatitis C Antibody <0.1 s/co ratio HIV (1&2) Antibody Non reactive (Non Reactive) Smudge Cells Present Macrocytosis Present Phosphorus Level 4.7 mg/dL (2.6-4.7) Magnesium Level 2.2 mg/dL (1.8-2.4) Laboratory Tests Test 12/19/16 04:35 White Blood Count 24.4 x10^3/uL (4.0-11.0) Red Blood Count 2.07 x10^6/uL (4.30-5.70) Hemoglobin 7.2 g/dL (13.0-17.5) Hematocrit 22.8 % (39.0-53.0) Mean Corpuscular Volume 111 fL (79-100) Mean Corpuscular Hemoglobin 35 pg (25-35) Mean Corpuscular Hemoglobin Concent 32 g/dL (31-37) Red Cell Distribution Width 16.7 % (11.5-14.5) Platelet Count < 3 x10^3/uL (140-400) Neutrophils (%) (Auto) 19 % (31-73) Lymphocytes (%) (Auto) 79 % (24-48) Monocytes (%) (Auto) 1 % (0-9) Eosinophils (%) (Auto) 0 % (0-3) Basophils (%) (Auto) 0 % (0-3) Neutrophils # (Auto) 4.7 x10^3uL (1.8-7.7) Lymphocytes # (Auto) 19.2 x10^3/uL (1.0-4.8) Monocytes # (Auto) 0.3 x10^3/uL (0.0-1.1) Eosinophils # (Auto) 0.1 x10^3/uL (0.0-0.7) Basophils # (Auto) 0.1 x10^3/uL (0.0-0.2) Segmented Neutrophils % 26 % (35-66) Band Neutrophils % 2 % (0-9) Lymphocytes % 71 % (24-48) Atypical Lymphocytes % (Manual) 1 % (0-0) Smudge Cells Present Platelet Estimate Decreased (ADEQUATE) Polychromasia Present Anisocytosis Present Macrocytosis Present Reticulocyte Count (auto) 12.1 % (0.5-2.5) Sodium Level 145 mmol/L (136-145) Potassium Level 4.3 mmol/L (3.5-5.1) Chloride Level 109 mmol/L (98-107) Carbon Dioxide Level 29 mmol/L (21-32) Anion Gap 7 (6-14) Blood Urea Nitrogen 33 mg/dL (8-26) Creatinine 1.8 mg/dL (0.7-1.3) Estimated GFR (Cockcroft-Gault) 37.5 Glucose Level 161 mg/dL (70-99) Calcium Level 8.0 mg/dL (8.5-10.1) Phosphorus Level 4.7 mg/dL (2.6-4.7) Magnesium Level 2.2 mg/dL (1.8-2.4) Lactate Dehydrogenase 529 U/L (85-227) Albumin 3.0 g/dL (3.4-5.0) Medications Current Medications Allopurinol (Zyloprim) 300 mg DAILY PO Last administered on 12/19/16 10:26; Start 12/19/16 at 09:00 Levothyroxine Sodium (Synthroid) 150 mcg DAILY07 PO Last administered on 06:03; Start 12/19/16 at 07:00 Cyanocobalamin (Vitamin B-12) 1,000 mcg 1X ONCE SQ Last administered on 16:16; Start 12/18/16 at 13:30; Stop 12/18/16 at 13:31; Status DC Prednisone (Prednisone) 120 mg DAILY PO Last administered on 12/19/16 10:26; Start 12/18/16 at 15:30 Magnesium Sulfate/ Dextrose 50 ml @ 25 mls/hr PRN DAILY PRN IV for Mag < 1.7 on am labs; Start 12/18/16 at 15:15 Sodium Chloride 1,000 ml @ 75 mls/hr [id number] IV Last administered on 05:21; Start 12/18/16 at 15:30 Lorazepam (Ativan) 0.5 mg Q8HRS PRN IV ANXIETY / AGITATION Last administered on 12/18/16t 17:51; Start 12/18/16 at 16:45 Immune Globulin 60 gm/Immune Globulin 40 gm/ Miscellaneous 1,001 ml @ 75 mls/ hr 1X ONCE IV Last administered on 12/19/16 12:03; Start 12/19/16 at 09:00 ; Stop 12/19/16 at 22:20 Immune Globulin 10 gm/Immune Globulin 120 gm/ Miscellaneous 1,301 ml @ 75 mls/ hr 1X ONCE IV ; Start 12/20/16 at 11:00; Stop 12/21/16 at 04:20 Levothyroxine Sodium (Synthroid) 150 mcg DAILY PO ; Start 12/20/16 at 09:00; Status UNV Active Scripts Active Reported Colcrys (Colchicine) 0.6 Mg Tablet 1 Tab PO DAILY Lisinopril-Hctz 20-25 Mg Tab (Lisinopril/Hydrochlorothiazide) 1 Each Tablet 1 Tab PO DAILY Celecoxib 200 Mg Capsule 200 Mg PO PRN PRN Lortab 7.5-325 mg Tablet (Hydrocodone/Acetaminophen) 1 Each Tablet 1 Tab PO PRN Q6HRS PRN Levothyroxine Sodium 150 Mcg Tablet 1 Tab PO DAILY Vitals/I & O Vital Sign - Last 24 Hours 12/18/16 12/18/16 12/18/16 12/18/16 16:10 16:40 16:55 17:20 Temp 97.9 97.9 97.9 97.7 97.9 97.9 97.9 97.7 Pulse 66 69 76 76 Resp 22 20 22 24 B/P (MAP) 118/58 (78) 130/66 136/61 127/60 Pulse Ox 91 O2 Delivery Room Air 12/18/16 12/18/16 12/18/16 12/19/16 19:00 20:00 23:00 03:00 Temp 97.9 97.5 97.5 97.9 97.5 97.5 Pulse 71 67 67 Resp 16 16 17 B/P (MAP) 135/65 (88) 129/60 (83) 128/63 (84) Pulse Ox 91 94 94 O2 Delivery Room Air Room Air Room Air 12/19/16 12/19/16 12/19/1611/17 07:00 08:00 10:41 11:55 Temp 97.7 97.7 Pulse 70 85 75 Resp 20 20 18 B/P (MAP) 121/57 (78) 118/61 (80) 117/46 (69) Pulse Ox 93 95 93 O2 Delivery Room Air Room Air Room Air Room Air 12/19/16 12/19/16 12/19/16 12:20 12:35 12:50 Temp 97.7 97.7 Pulse 66 66 65 Resp 18 18 18 B/P (MAP) 111/52 (71) 113/47 (69) 109/54 (72) Pulse Ox 92 92 94 O2 Delivery Room Air Room Air Room Air OLIVER NEAL MD Dec 19, 2016 15:02
[2016-12-20] VITALS (18 sets, daily range): BP systolic 116–146; BP diastolic 54–72
[2016-12-20] MEDS: IV NORMAL SALINE 1000ML BAG 1,000 ML IV SCH ×2 (00:39→05:55)
[2016-12-20 05:45] LABS: HEMATOCRIT 21.7 % (39.0-53.0); RED BLOOD COUNT 1.93 x10^6/uL (4.30-5.70); RED CELL DISTRIBUTION WIDTH 16.8 % (11.5-14.5); WHITE BLOOD COUNT 36.4 x10^3/uL (4.0-11.0)
[2016-12-20] MEDS: LEVOTHYROXINE 150 MCG TABLET PO SCH (05:45)
[2016-12-20 06:02] LABS: HEMOGLOBIN 6.6 g/dL (13.0-17.5)
[2016-12-20 06:27] LABS: ALBUMIN 2.9 g/dL (3.4-5.0); CREATININE 1.7 mg/dL (0.7-1.3); PHOSPHORUS 5.2 mg/dL (2.6-4.7); POTASSIUM 4.1 mmol/L (3.5-5.1)
[2016-12-20] MEDS: ALLOPURINOL 300 MG TABLET. PO SCH (07:49)
[2016-12-20] MEDS: predniSONE 20 MG TABLET PO SCH (07:49)
--- NOTE | 2016-12-20 08:35 | PDOC ---
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 He tolerated well Plt up to 9 today, bruises unchanged, no bleed hemoglobin down to 6.6 but tolerating with no issues. 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 per lab started prednisone 12/18 and had IVIG on 12/19 with plans for second dose today - had slightly lower dose that 1 gm/kg due to difficulty getting Overall, plts a little better and tolerating lower hemoglobin. For now can observe and transfuse if needed based on symptoms and would need a blood warmer Appears to have underlying lymphoproliferative d/o and ultimately rx of that process will likely be necessary - often rituxan can be effective in shutting off hemolysis from warm but especially cold ab and may be necessary, but would prefer to at least get marrow in process He can be transfused if needed, but red cells and plts will be consumed until we are able to shut off the antibody consuming cells, so plts would be held unless he has active bleeding and would hold red cells unless there is more urgent medical need - currently appears comfortable Would need a blood warmer if transfusion needed 2. 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 Has positive doppler, but no acute symptoms. Has prior history so may be chronic clot. In this situation would not anticoagulate given low plts and bleeding risk. Filter could be entertained, but I doubt the risk of acute PE outweight risk of filter given concerns about bleeing and such at least in the short term He voiced understanding and will let Dr Estrella know of events. Have also d/w nurse Comment Review of Relevant I have reviewed the following items ana maría (where applicable) has been applied. Labs Laboratory Tests Test 12/18/16 12:00 12/18/16 14:18 12/19/16 04:35 12/20/16 05:15 White Blood Count 21.0 x10^3/uL (4.0-11.0) 24.4 x10^3/uL (4.0-11.0) 36.4 x10^3/uL (4.0-11.0) Red Blood Count 2.34 x10^6/uL (4.30-5.70) 2.07 x10^6/uL (4.30-5.70) 1.93 x10^6/uL (4.30-5.70) Hemoglobin 8.1 g/dL (13.0-17.5) 7.2 g/dL (13.0-17.5) 6.6 g/dL (13.0-17.5) Hematocrit 25.7 % (39.0-53.0) 22.8 % (39.0-53.0) 21.7 % (39.0-53.0) Mean Corpuscular Volume 110 fL (79-100) 111 fL (79-100) 113 fL (79-100) Mean Corpuscular Hemoglobin 35 pg (25-35) 35 pg (25-35) 34 pg (25-35) Mean Corpuscular Hemoglobin Concent 32 g/dL (31-37) 32 g/dL (31-37) 31 g/dL (31-37) Red Cell Distribution Width 17.4 % (11.5-14.5) 16.7 % (11.5-14.5) 16.8 % (11.5-14.5) Platelet Count < 3 x10^3/uL (140-400) < 3 x10^3/uL (140-400) 9 x10^3/uL (140-400) Neutrophils (%) (Auto) 20 % (31-73) 19 % (31-73) Lymphocytes (%) (Auto) 76 % (24-48) 79 % (24-48) Monocytes (%) (Auto) 3 % (0-9) 1 % (0-9) Eosinophils (%) (Auto) 1 % (0-3) 0 % (0-3) Basophils (%) (Auto) 1 % (0-3) 0 % (0-3) Neutrophils # (Auto) 4.3 x10^3uL (1.8-7.7) 4.7 x10^3uL (1.8-7.7) Lymphocytes # (Auto) 15.9 x10^3/uL (1.0-4.8) 19.2 x10^3/uL (1.0-4.8) Monocytes # (Auto) 0.5 x10^3/uL (0.0-1.1) 0.3 x10^3/uL (0.0-1.1) Eosinophils # (Auto) 0.1 x10^3/uL (0.0-0.7) 0.1 x10^3/uL (0.0-0.7) Basophils # (Auto) 0.1 x10^3/uL (0.0-0.2) 0.1 x10^3/uL (0.0-0.2) Segmented Neutrophils % 27 % (35-66) 26 % (35-66) Band Neutrophils % 4 % (0-9) 2 % (0-9) Lymphocytes % 61 % (24-48) 71 % (24-48) Atypical Lymphocytes % (Manual) 2 % (0-0) 1 % (0-0) Monocytes % 1 % (0-10) Eosinophils % 3 % (0-5) Basophils % 1 % (0-3) Metamyelocytes % 1 % (0-0) Platelet Estimate Decreased (ADEQUATE) Decreased (ADEQUATE) Polychromasia Slight Present Anisocytosis Slight Present Reticulocyte Count (auto) 7.6 % (0.5-2.5) 12.1 % (0.5-2.5) Sodium Level 145 mmol/L (136-145) 145 mmol/L (136-145) 141 mmol/L (136-145) Potassium Level 3.7 mmol/L (3.5-5.1) 4.3 mmol/L (3.5-5.1) 4.1 mmol/L (3.5-5.1) Chloride Level 106 mmol/L (98-107) 109 mmol/L (98-107) 106 mmol/L (98-107) Carbon Dioxide Level 25 mmol/L (21-32) 29 mmol/L (21-32) 27 mmol/L (21-32) Anion Gap 14 (6-14) 7 (6-14) 8 (6-14) Blood Urea Nitrogen 32 mg/dL (8-26) 33 mg/dL (8-26) 39 mg/dL (8-26) Creatinine 1.8 mg/dL (0.7-1.3) 1.8 mg/dL (0.7-1.3) 1.7 mg/dL (0.7-1.3) Estimated GFR (Cockcroft-Gault) 37.5 37.5 40.0 BUN/Creatinine Ratio 18 (6-20) Glucose Level 135 mg/dL (70-99) 161 mg/dL (70-99) 134 mg/dL (70-99) Lactic Acid Level 2.5 mmol/L (0.4-2.0) Calcium Level 8.3 mg/dL (8.5-10.1) 8.0 mg/dL (8.5-10.1) 8.0 mg/dL (8.5-10.1) Ferritin 143 ng/mL (26-388) Total Bilirubin 3.6 mg/dL (0.2-1.0) Direct Bilirubin 0.6 mg/dL (0.0-0.2) Aspartate Amino Transf (AST/SGOT) 45 U/L (15-37) Alanine Aminotransferase (ALT/SGPT) 16 U/L (16-63) Alkaline Phosphatase 96 U/L (46-116) Troponin I Quantitative 0.022 ng/mL (0.000-0.055) Total Protein 5.8 g/dL (6.4-8.2) Albumin 3.4 g/dL (3.4-5.0) 3.0 g/dL (3.4-5.0) 2.9 g/dL (3.4-5.0) Albumin/Globulin Ratio 1.4 (1.0-1.7) Lipase 118 U/L (73-393) Vitamin B12 Level 531 pg/mL (247-911) Serum Folate 5.94 ng/ml (3.2-20.0) Thyroid Stimulating Hormone (TSH) 3.738 uIU/mL (0.358-3.74) Haptoglobin <10 mg/dL (34-200) Prothrombin Time 15.0 SEC (11.7-14.0) Prothromb Time International Ratio 1.3 (0.8-1.1) Activated Partial Thromboplast Time 30 SEC (24-38) Fibrinogen 282 mg/dL (200-440) D-Dimer ([place]) 0.49 ug/mlFEU (0.00-0.50) Iron Level 83 ug/dL (65-175) Total Iron Binding Capacity 283 ug/dL (250-450) Iron Saturation 29 % (15-34) Lactate Dehydrogenase 611 U/L (85-227) 529 U/L (85-227) Hepatitis C Antibody <0.1 s/co ratio HIV (1&2) Antibody Non reactive (Non Reactive) Smudge Cells Present Macrocytosis Present Phosphorus Level 4.7 mg/dL (2.6-4.7) 5.2 mg/dL (2.6-4.7) Magnesium Level 2.2 mg/dL (1.8-2.4) 2.6 mg/dL (1.8-2.4) Laboratory Tests Test 12/20/16 05:15 White Blood Count 36.4 x10^3/uL (4.0-11.0) Red Blood Count 1.93 x10^6/uL (4.30-5.70) Hemoglobin 6.6 g/dL (13.0-17.5) Hematocrit 21.7 % (39.0-53.0) Mean Corpuscular Volume 113 fL (79-100) Mean Corpuscular Hemoglobin 34 pg (25-35) Mean Corpuscular Hemoglobin Concent 31 g/dL (31-37) Red Cell Distribution Width 16.8 % (11.5-14.5) Platelet Count 9 x10^3/uL (140-400) Sodium Level 141 mmol/L (136-145) Potassium Level 4.1 mmol/L (3.5-5.1) Chloride Level 106 mmol/L (98-107) Carbon Dioxide Level 27 mmol/L (21-32) Anion Gap 8 (6-14) Blood Urea Nitrogen 39 mg/dL (8-26) Creatinine 1.7 mg/dL (0.7-1.3) Estimated GFR (Cockcroft-Gault) 40.0 Glucose Level 134 mg/dL (70-99) Calcium Level 8.0 mg/dL (8.5-10.1) Phosphorus Level 5.2 mg/dL (2.6-4.7) Magnesium Level 2.6 mg/dL (1.8-2.4) Albumin 2.9 g/dL (3.4-5.0) Medications Current Medications Allopurinol (Zyloprim) 300 mg DAILY PO Last administered on 12/20/16 07:49; Start 12/19/16 at 09:00 Levothyroxine Sodium (Synthroid) 150 mcg DAILY07 PO Last administered on 05:45; Start 12/19/16 at 07:00 Cyanocobalamin (Vitamin B-12) 1,000 mcg 1X ONCE SQ Last administered on 16:16; Start 12/18/16 at 13:30; Stop 12/18/16 at 13:31; Status DC Prednisone (Prednisone) 120 mg DAILY PO Last administered on 12/20/16 07:49; Start 12/18/16 at 15:30 Magnesium Sulfate/ Dextrose 50 ml @ 25 mls/hr PRN DAILY PRN IV for Mag < 1.7 on am labs; Start 12/18/16 at 15:15 Sodium Chloride 1,000 ml @ 75 mls/hr [id number] IV Last administered on 05:55; Start 12/18/16 at 15:30 Lorazepam (Ativan) 0.5 mg Q8HRS PRN IV ANXIETY / AGITATION Last administered on 12/18/16 17:51; Start 12/18/16 at 16:45 Immune Globulin 60 gm/Immune Globulin 40 gm/ Miscellaneous 1,001 ml @ 75 mls/ hr 1X ONCE IV Last administered on 12/19/16 12:03; Start 12/19/16 at 09:00 ; Stop 12/19/16 at 22:20; Status DC Immune Globulin 10 gm/Immune Globulin 120 gm/ Miscellaneous 1,301 ml @ 75 mls/ hr 1X ONCE IV ; Start 12/20/16 at 11:00; Stop 12/21/16 at 04:20 Levothyroxine Sodium (Synthroid) 150 mcg DAILY PO ; Start 12/20/16 at 09:00; Status UNV Active Scripts Active Reported Colcrys (Colchicine) 0.6 Mg Tablet 1 Tab PO DAILY Lisinopril-Hctz 20-25 Mg Tab (Lisinopril/Hydrochlorothiazide) 1 Each Tablet 1 Tab PO DAILY Celecoxib 200 Mg Capsule 200 Mg PO PRN PRN Lortab 7.5-325 mg Tablet (Hydrocodone/Acetaminophen) 1 Each Tablet 1 Tab PO PRN Q6HRS PRN Levothyroxine Sodium 150 Mcg Tablet 1 Tab PO DAILY Vitals/I & O Vital Sign - Last 24 Hours 12/19/16 12/19/16 12/19/16 12/19/16 10:41 11:55 12:20 12:35 Pulse 85 75 66 66 Resp 20 18 18 18 B/P (MAP) 118/61 (80) 117/46 (69) 111/52 (71) 113/47 (69) Pulse Ox 95 93 92 92 O2 Delivery Room Air Room Air Room Air Room Air 12/19/16 12/19/16 12/19/16 12/19/16 12:50 14:00 15:00 16:00 Temp 97.7 97.9 97.7 97.7 97.9 97.7 Pulse 65 67 75 64 Resp 18 18 18 B/P (MAP) 109/54 (72) 109/54 (72) 129/67 (87) 161/93 (115) Pulse Ox 94 96 93 O2 Delivery Room Air Room Air Room Air 12/19/16 12/19/16 12/19/16 12/19/16 19:14 20:00 20:14 21:14 Temp 97.9 97.9 97.9 97.9 Pulse 80 68 61 Resp 18 18 18 B/P (MAP) 121/56 (77) 119/60 (79) 121/56 (77) Pulse Ox 93 94 96 O2 Delivery Room Air Room Air Room Air Room Air 12/19/16 12/19/16 12/20/16 12/20/16 22:14 23:14 00:14 03:00 Temp 97.7 96.6 97.7 96.6 Pulse 73 65 67 67 Resp 18 18 18 18 B/P (MAP) 134/64 (87) 120/57 (78) 117/62 (80) 116/67 (83) Pulse Ox 96 96 94 94 O2 Delivery Room Air Room Air Room Air Room Air 12/20/16 07:00 Temp 97.0 97.0 Pulse 58 Resp 18 B/P (MAP) 124/63 (83) Pulse Ox 94 O2 Delivery Room Air JOSE BROWN MD Dec 20, 2016 08:35
[2016-12-20] MEDS ORDERED: LEVOTHYROXINE 150 MCG TABLET PO SCH (09:00)
[2016-12-20] MEDS ORDERED: IMMUNE GLOBULIN GAMMA IV ONE (11:00)
[2016-12-20] MEDS ORDERED: [UNRECOGNIZED DRUG - OTHER] IV ONE (11:00)
--- NOTE | 2016-12-20 11:02 | PDOC ---
SUBJECTIVE Subjective doing well without new complaints OBJECTIVE Vital Signs Vital Signs Date Time Temp Pulse Resp B/P (MAP) Pulse Ox O2 Delivery O2 Flow Rate FiO2 12/20/16 07:00 97.0 58 18 124/63 (83) 94 Room Air 97.0 12/20/16 03:00 96.6 67 18 116/67 (83) 94 Room Air 96.6 12/20/16 00:14 67 18 117/62 (80) 94 Room Air 12/19/16 23:14 97.7 65 18 120/57 (78) 96 Room Air 97.7 12/19/16 22:14 73 18 134/64 (87) 96 Room Air 12/19/16 21:14 97.9 61 18 121/56 (77) 96 Room Air 97.9 12/19/16 20:14 97.9 68 18 119/60 (79) 94 Room Air 97.9 12/19/16 20:00 Room Air 12/19/16 19:14 80 18 121/56 (77) 93 Room Air 12/19/16 16:00 97.7 64 18 161/93 (115) 93 Room Air 97.7 12/19/16 15:00 97.9 75 18 129/67 (87) 96 Room Air 97.9 12/19/16 14:00 67 109/54 (72) 12/19/16 12:50 97.7 65 18 109/54 (72) 94 Room Air 97.7 12/19/16 12:35 66 18 113/47 (69) 92 Room Air 12/19/16 12:20 66 18 111/52 (71) 92 Room Air 12/19/16 11:55 75 18 117/46 (69) 93 Room Air PHYSICAL EXAM Physical Exam no change in exam ASSESSMENT/PLAN Assessment/Plan 1. ITP and acute hemolytic anemia with underlying recently diagnosed myeloproliferative disorder , on steroids and Immunoglobulin 2- CKD , abd sono noted ok 3- DVT right lower extremity but not sure if acute or chronic, no PE agree with oncology on filter , contraindication for anticoagulation , discussed with Dr. Blood as well 4- CAD 5-HTN 6-gout 7-acquired hypothyroidism after treatment or Grave's disease no improvement in count so far , continue Tx need bone marrow Bx Dr. Gamez will resume care in AM Problems: COMMENT Lab Laboratory Tests Test 12/20/16 05:15 White Blood Count 36.4 x10^3/uL (4.0-11.0) Red Blood Count 1.93 x10^6/uL (4.30-5.70) Hemoglobin 6.6 g/dL (13.0-17.5) Hematocrit 21.7 % (39.0-53.0) Mean Corpuscular Volume 113 fL (79-100) Mean Corpuscular Hemoglobin 34 pg (25-35) Mean Corpuscular Hemoglobin Concent 31 g/dL (31-37) Red Cell Distribution Width 16.8 % (11.5-14.5) Platelet Count 9 x10^3/uL (140-400) Sodium Level 141 mmol/L (136-145) Potassium Level 4.1 mmol/L (3.5-5.1) Chloride Level 106 mmol/L (98-107) Carbon Dioxide Level 27 mmol/L (21-32) Anion Gap 8 (6-14) Blood Urea Nitrogen 39 mg/dL (8-26) Creatinine 1.7 mg/dL (0.7-1.3) Estimated GFR (Cockcroft-Gault) 40.0 Glucose Level 134 mg/dL (70-99) Calcium Level 8.0 mg/dL (8.5-10.1) Phosphorus Level 5.2 mg/dL (2.6-4.7) Magnesium Level 2.6 mg/dL (1.8-2.4) Albumin 2.9 g/dL (3.4-5.0) JOAO SOSA MD Dec 20, 2016 11:02
--- NOTE | 2016-12-20 17:26 | PDOC ---
PULMONARY PROGRESS NOTES Subjective PT WITH NO HEMOPTYSIS NO INCREASE SOA Vitals Vital Signs Date Time Temp Pulse Resp B/P (MAP) Pulse Ox O2 Delivery O2 Flow Rate FiO2 12/20/16 15:00 97.5 66 18 146/66 (92) 96 Room Air 97.5 ROS: No Nausea, No Chest Pain, No Abdominal Pain, No Increase Cough General: Alert Lungs: Clear Cardiovascular: S1, S2 Abdomen: Soft, Non-tender Neuro Exam: Alert Extremities: No Edema Skin: Warm Labs Laboratory Tests Test 12/19/16 04:35 12/20/16 05:15 White Blood Count 24.4 x10^3/uL (4.0-11.0) 36.4 x10^3/uL (4.0-11.0) Red Blood Count 2.07 x10^6/uL (4.30-5.70) 1.93 x10^6/uL (4.30-5.70) Hemoglobin 7.2 g/dL (13.0-17.5) 6.6 g/dL (13.0-17.5) Hematocrit 22.8 % (39.0-53.0) 21.7 % (39.0-53.0) Mean Corpuscular Volume 111 fL (79-100) 113 fL (79-100) Mean Corpuscular Hemoglobin 35 pg (25-35) 34 pg (25-35) Mean Corpuscular Hemoglobin Concent 32 g/dL (31-37) 31 g/dL (31-37) Red Cell Distribution Width 16.7 % (11.5-14.5) 16.8 % (11.5-14.5) Platelet Count < 3 x10^3/uL (140-400) 9 x10^3/uL (140-400) Neutrophils (%) (Auto) 19 % (31-73) Lymphocytes (%) (Auto) 79 % (24-48) Monocytes (%) (Auto) 1 % (0-9) Eosinophils (%) (Auto) 0 % (0-3) Basophils (%) (Auto) 0 % (0-3) Neutrophils # (Auto) 4.7 x10^3uL (1.8-7.7) Lymphocytes # (Auto) 19.2 x10^3/uL (1.0-4.8) Monocytes # (Auto) 0.3 x10^3/uL (0.0-1.1) Eosinophils # (Auto) 0.1 x10^3/uL (0.0-0.7) Basophils # (Auto) 0.1 x10^3/uL (0.0-0.2) Segmented Neutrophils % 26 % (35-66) Band Neutrophils % 2 % (0-9) Lymphocytes % 71 % (24-48) Atypical Lymphocytes % (Manual) 1 % (0-0) Smudge Cells Present Platelet Estimate Decreased (ADEQUATE) Polychromasia Present Anisocytosis Present Macrocytosis Present Reticulocyte Count (auto) 12.1 % (0.5-2.5) Sodium Level 145 mmol/L (136-145) 141 mmol/L (136-145) Potassium Level 4.3 mmol/L (3.5-5.1) 4.1 mmol/L (3.5-5.1) Chloride Level 109 mmol/L (98-107) 106 mmol/L (98-107) Carbon Dioxide Level 29 mmol/L (21-32) 27 mmol/L (21-32) Anion Gap 7 (6-14) 8 (6-14) Blood Urea Nitrogen 33 mg/dL (8-26) 39 mg/dL (8-26) Creatinine 1.8 mg/dL (0.7-1.3) 1.7 mg/dL (0.7-1.3) Estimated GFR (Cockcroft-Gault) 37.5 40.0 Glucose Level 161 mg/dL (70-99) 134 mg/dL (70-99) Calcium Level 8.0 mg/dL (8.5-10.1) 8.0 mg/dL (8.5-10.1) Phosphorus Level 4.7 mg/dL (2.6-4.7) 5.2 mg/dL (2.6-4.7) Magnesium Level 2.2 mg/dL (1.8-2.4) 2.6 mg/dL (1.8-2.4) Lactate Dehydrogenase 529 U/L (85-227) Albumin 3.0 g/dL (3.4-5.0) 2.9 g/dL (3.4-5.0) Laboratory Tests Test 12/20/16 05:15 White Blood Count 36.4 x10^3/uL (4.0-11.0) Red Blood Count 1.93 x10^6/uL (4.30-5.70) Hemoglobin 6.6 g/dL (13.0-17.5) Hematocrit 21.7 % (39.0-53.0) Mean Corpuscular Volume 113 fL (79-100) Mean Corpuscular Hemoglobin 34 pg (25-35) Mean Corpuscular Hemoglobin Concent 31 g/dL (31-37) Red Cell Distribution Width 16.8 % (11.5-14.5) Platelet Count 9 x10^3/uL (140-400) Sodium Level 141 mmol/L (136-145) Potassium Level 4.1 mmol/L (3.5-5.1) Chloride Level 106 mmol/L (98-107) Carbon Dioxide Level 27 mmol/L (21-32) Anion Gap 8 (6-14) Blood Urea Nitrogen 39 mg/dL (8-26) Creatinine 1.7 mg/dL (0.7-1.3) Estimated GFR (Cockcroft-Gault) 40.0 Glucose Level 134 mg/dL (70-99) Calcium Level 8.0 mg/dL (8.5-10.1) Phosphorus Level 5.2 mg/dL (2.6-4.7) Magnesium Level 2.6 mg/dL (1.8-2.4) Albumin 2.9 g/dL (3.4-5.0) Medications Active Scripts Medications Dose Route/Sig Max Daily Dose Days Date Category Colcrys (Colchicine) 0.6 Mg Tablet 1 Tab PO DAILY 04/30/14 Reported Lisinopril-Hctz 20-25 Mg Tab (Lisinopril/Hydrochlorothiazide) 1 Each Tablet 1 Tab PO DAILY 04/30/14 Reported Celecoxib 200 Mg Capsule 200 Mg PO PRN PRN 04/30/14 Reported Lortab 7.5-325 mg Tablet (Hydrocodone/Acetaminophen) 1 Each Tablet 1 Tab PO PRN Q6HRS PRN 01/02/14 Reported Levothyroxine Sodium 150 Mcg Tablet 1 Tab PO DAILY 01/02/14 Reported Impression . 1. Progressive dyspnea, multifactorial secondary to underlying and severe secondary pulmonary hypertension, morbid obesity and deconditioning. 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 3. ITP. 4. Autoimmune hemolytic anemia. 5. Chronic diastolic heart failure. 6. Hypothyroidism. 7. Morbid obesity. 8. Osteoarthritis. 9. Hyperlipidemia. 10. Chronic renal insufficiency. 11. Positive D-dimer. IMPRESSION: Low probability study. V/Q IMPRESSION: DVT is seen involving the right popliteal vein and right superficial femoral vein. Plan . WILL CONTINUE THE SAME PLATELET COUNT HAS GONE UP 1. Platelets low will hold off on anticoagulation, may benefit from IVC IN FUTURE IF NEEDED CAN TRANSFUSE PRIOR TO PROCEDURE 2. Oxygen supplementation as needed. 3. Consult nephrology, already performed. 4. Outpatient polysomnogram. ILSA PADILLA MD Dec 20, 2016 17:26
[2016-12-21] VITALS (12 sets, daily range): BP systolic 115–145; BP diastolic 59–77
[2016-12-21] MEDS: IV NORMAL SALINE 1000ML BAG 1,000 ML IV SCH ×3 (01:17→21:13)
[2016-12-21] MEDS: LEVOTHYROXINE 150 MCG TABLET PO SCH (05:10)
[2016-12-21 07:16] LABS: ALBUMIN 2.7 g/dL (3.4-5.0); CALCIUM 7.2 mg/dL (8.5-10.1); CREATININE 1.7 mg/dL (0.7-1.3); PHOSPHORUS 4.8 mg/dL (2.6-4.7); POTASSIUM 3.9 mmol/L (3.5-5.1)
[2016-12-21 07:28] LABS: HEMATOCRIT 22.3 % (39.0-53.0); RED CELL DISTRIBUTION WIDTH 16.4 % (11.5-14.5)
[2016-12-21 07:37] LABS: WHITE BLOOD COUNT 42.5 x10^3/uL (4.0-11.0)
[2016-12-21 07:38] LABS: HEMOGLOBIN 6.8 g/dL (13.0-17.5)
--- NOTE | 2016-12-21 08:55 | PDOC ---
Provider Note Provider Note h and p [id number] JOSIAH CEBALLOS MD Dec 21, 2016 08:55
--- NOTE | 2016-12-21 09:34 | PDOC ---
PULMONARY PROGRESS NOTES Subjective PT WITH NO HEMOPTYSIS SOA WITH EXERTION Vitals Vital Signs Date Time Temp Pulse Resp B/P (MAP) Pulse Ox O2 Delivery O2 Flow Rate FiO2 12/21/16 08:00 Room Air 12/21/16 07:00 96.8 58 18 127/67 (87) 97 96.8 ROS: No Nausea, No Chest Pain, No Abdominal Pain, No Increase Cough General: Alert, No acute distress Lungs: Clear Cardiovascular: S1, S2 Abdomen: Soft, Non-tender Neuro Exam: Alert Extremities: No Edema, Other (echymosis upper extremity) Skin: Warm Labs Laboratory Tests Test 12/20/16 05:15 12/21/16 06:30 White Blood Count 36.4 x10^3/uL (4.0-11.0) 42.5 x10^3/uL (4.0-11.0) Red Blood Count 1.93 x10^6/uL (4.30-5.70) 2.00 x10^6/uL (4.30-5.70) Hemoglobin 6.6 g/dL (13.0-17.5) 6.8 g/dL (13.0-17.5) Hematocrit 21.7 % (39.0-53.0) 22.3 % (39.0-53.0) Mean Corpuscular Volume 113 fL (79-100) 112 fL (79-100) Mean Corpuscular Hemoglobin 34 pg (25-35) 34 pg (25-35) Mean Corpuscular Hemoglobin Concent 31 g/dL (31-37) 31 g/dL (31-37) Red Cell Distribution Width 16.8 % (11.5-14.5) 16.4 % (11.5-14.5) Platelet Count 9 x10^3/uL (140-400) 16 x10^3/uL (140-400) Sodium Level 141 mmol/L (136-145) 138 mmol/L (136-145) Potassium Level 4.1 mmol/L (3.5-5.1) 3.9 mmol/L (3.5-5.1) Chloride Level 106 mmol/L (98-107) 106 mmol/L (98-107) Carbon Dioxide Level 27 mmol/L (21-32) 27 mmol/L (21-32) Anion Gap 8 (6-14) 5 (6-14) Blood Urea Nitrogen 39 mg/dL (8-26) 39 mg/dL (8-26) Creatinine 1.7 mg/dL (0.7-1.3) 1.7 mg/dL (0.7-1.3) Estimated GFR (Cockcroft-Gault) 40.0 40.0 Glucose Level 134 mg/dL (70-99) 110 mg/dL (70-99) Calcium Level 8.0 mg/dL (8.5-10.1) 7.2 mg/dL (8.5-10.1) Phosphorus Level 5.2 mg/dL (2.6-4.7) 4.8 mg/dL (2.6-4.7) Magnesium Level 2.6 mg/dL (1.8-2.4) 2.6 mg/dL (1.8-2.4) Albumin 2.9 g/dL (3.4-5.0) 2.7 g/dL (3.4-5.0) Reticulocyte Count (auto) 5.7 % (0.5-2.5) Laboratory Tests Test 12/21/16 06:30 White Blood Count 42.5 x10^3/uL (4.0-11.0) Red Blood Count 2.00 x10^6/uL (4.30-5.70) Hemoglobin 6.8 g/dL (13.0-17.5) Hematocrit 22.3 % (39.0-53.0) Mean Corpuscular Volume 112 fL (79-100) Mean Corpuscular Hemoglobin 34 pg (25-35) Mean Corpuscular Hemoglobin Concent 31 g/dL (31-37) Red Cell Distribution Width 16.4 % (11.5-14.5) Platelet Count 16 x10^3/uL (140-400) Reticulocyte Count (auto) 5.7 % (0.5-2.5) Sodium Level 138 mmol/L (136-145) Potassium Level 3.9 mmol/L (3.5-5.1) Chloride Level 106 mmol/L (98-107) Carbon Dioxide Level 27 mmol/L (21-32) Anion Gap 5 (6-14) Blood Urea Nitrogen 39 mg/dL (8-26) Creatinine 1.7 mg/dL (0.7-1.3) Estimated GFR (Cockcroft-Gault) 40.0 Glucose Level 110 mg/dL (70-99) Calcium Level 7.2 mg/dL (8.5-10.1) Phosphorus Level 4.8 mg/dL (2.6-4.7) Magnesium Level 2.6 mg/dL (1.8-2.4) Albumin 2.7 g/dL (3.4-5.0) Medications Active Scripts Medications Dose Route/Sig Max Daily Dose Days Date Category Colcrys (Colchicine) 0.6 Mg Tablet 1 Tab PO DAILY 04/30/14 Reported Lisinopril-Hctz 20-25 Mg Tab (Lisinopril/Hydrochlorothiazide) 1 Each Tablet 1 Tab PO DAILY 04/30/14 Reported Celecoxib 200 Mg Capsule 200 Mg PO PRN PRN 04/30/14 Reported Lortab 7.5-325 mg Tablet (Hydrocodone/Acetaminophen) 1 Each Tablet 1 Tab PO PRN Q6HRS PRN 01/02/14 Reported Levothyroxine Sodium 150 Mcg Tablet 1 Tab PO DAILY 01/02/14 Reported Impression . 1. Progressive dyspnea, multifactorial secondary to anemia, severe secondary pulmonary hypertension, morbid obesity and deconditioning. 2. underlying CLL. 3. ITP 4. Autoimmune hemolytic anemia. 5. Chronic diastolic heart failure. 6. Hypothyroidism. 7. Morbid obesity. 8. Osteoarthritis. 9. Hyperlipidemia. 10. Chronic renal insufficiency. 11. Positive D-dimer. DVT is seen involving the right popliteal vein and right superficial femoral vein. Low probability study. V/Q Plan . 1. Platelets Still very low. will hold off on anticoagulation, may benefit from IVC IN FUTURE IF NEEDED. 2. Oxygen supplementation as needed. 3. nephrology recommendations 4. Outpatient polysomnogram. 5. IVIG per hematology/ transfusion prn d/w BERONICA ALLEN MD Dec 21, 2016 09:34
[2016-12-21] MEDS ORDERED: LIDOCAINE 1% / SOD BICARB 8.4% 20 ML VIAL. IJ ONE ×2 (09:56→10:30)
[2016-12-21] MEDS ORDERED: fentaNYL PF VIAL 100 MCG/2 ML VIAL ONE (10:16)
[2016-12-21] MEDS ORDERED: MIDAZOLAM HCL/PF 5 MG/5 ML VIAL. ONE (10:16)
[2016-12-21] MEDS ORDERED: MIDAZOLAM HCL/PF 5 MG/5 ML VIAL. IV ONE (10:30)
[2016-12-21] MEDS ORDERED: fentaNYL PF VIAL 100 MCG/2 ML VIAL IV ONE (10:30)
--- NOTE | 2016-12-21 10:45 | RAD ---
CT-guided bone marrow biopsy. 12/21/2016 10:40 AM Indication: Lymphocytosis suspect CLL, ITP, Hemolytic anemia Discussion: The risks and benefits of the procedure, including but not limited to, bleeding and infection were discussed patient. Informed consent was obtained. The patient was brought to the CT scanner and placed in the prone position. A timeout procedure was performed. Auto [employer] Checker CT imaging of the pelvis demonstrated left ilium amenable to bone marrow biopsy. The overlying soft tissues were prepped and draped using maximum sterile barrier technique. 1% lidocaine without epinephrine was administered for local anesthesia. Under intermittent CT guidance, an OncControl needle was advanced into the bone marrow of the left iliac crest. 2 Aspirates and 1 core biopsy samples were obtained. Samples were delivered to pathology was present at the time of procedure. The needle was removed and manual pressure held to achieve hemostasis. No immediate complications were identified. The procedure was performed under conscious sedation including continuous cardiopulmonary monitoring via dedicated sedation nurse. Sedation time: 20 minutes Impression: Successful CT-guided bone marrow biopsy of the left iliac crest . PQRS Compliance Statement: One or more of the following individualized dose reduction techniques were utilized for this examination: 1. Automated exposure control 2. Adjustment of the mA and/or kV according to patient size 3. Use of iterative reconstruction technique
[2016-12-21] MEDS: ALLOPURINOL 300 MG TABLET. PO SCH (11:24)
[2016-12-21] MEDS: predniSONE 20 MG TABLET PO SCH (11:25)
--- NOTE | 2016-12-21 11:53 | PDOC ---
Renal-Progress Notes Subjective Notes Notes FEELS OK History of Present Illness Hx of present illness STABLE Vitals Vitals Vital Signs Date Time Temp Pulse Resp B/P (MAP) Pulse Ox O2 Delivery O2 Flow Rate FiO2 12/21/16 11:26 96 Room Air 12/21/16 10:58 96.8 60 18 115/59 (77) 96.8 Weight Weight [ ] I.O. Intake and Output Intake and Output 12/21/16 07:00 Intake Total 2735 ml Output Total 2500 ml Balance 235 ml Intake Oral 1360 ml IV Total 1375 ml Output Urine Total 2500 ml # Voids 1 # Bowel Movements 2 Labs Labs Laboratory Tests Test 12/21/16 06:30 White Blood Count 42.5 x10^3/uL (4.0-11.0) Red Blood Count 2.00 x10^6/uL (4.30-5.70) Hemoglobin 6.8 g/dL (13.0-17.5) Hematocrit 22.3 % (39.0-53.0) Mean Corpuscular Volume 112 fL (79-100) Mean Corpuscular Hemoglobin 34 pg (25-35) Mean Corpuscular Hemoglobin Concent 31 g/dL (31-37) Red Cell Distribution Width 16.4 % (11.5-14.5) Platelet Count 16 x10^3/uL (140-400) Reticulocyte Count (auto) 5.7 % (0.5-2.5) Sodium Level 138 mmol/L (136-145) Potassium Level 3.9 mmol/L (3.5-5.1) Chloride Level 106 mmol/L (98-107) Carbon Dioxide Level 27 mmol/L (21-32) Anion Gap 5 (6-14) Blood Urea Nitrogen 39 mg/dL (8-26) Creatinine 1.7 mg/dL (0.7-1.3) Estimated GFR (Cockcroft-Gault) 40.0 Glucose Level 110 mg/dL (70-99) Calcium Level 7.2 mg/dL (8.5-10.1) Phosphorus Level 4.8 mg/dL (2.6-4.7) Magnesium Level 2.6 mg/dL (1.8-2.4) Albumin 2.7 g/dL (3.4-5.0) Review of Systems Constitutional: yes: malaise, weakness, alert, oriented Ears/Nose/Throat: Yes: no symptom reported Pulmonary: Yes no symptom reported Cardiovascular: Yes no symptom reported Gastrointestional: Yes: no symptom reported Genitourinary: Yes: no symptom reported Musculoskeletal: Yes: no symptom reported Psychiatric/Neurological: Yes: no symptom reported Endocrine: Yes: no symptom reported Physical Exam General Appearance: no apparent distress Skin: warm Respiratory: bilateral CTA Heart: S1S2 Abdomen: soft, bowel sounds present Genitourinary: bladder flat Extremities: pulses present Neurology: alert, oriented, follow commands Musculoskeletal: Osteoarthritis Assessment Assessment IMP CKD STAGE 3 - STABLE WITH CR OF ABOUT 1.8 PULM HTN WITH SOB HEMOPTYSIS RESOLVED ? ITP AIHM ANEMIA PLAN ON PREDNISONE AND IVIG CHECK UA CONT WITH IVF NS LABS IN AM FAYE MANSFIELD MD Dec 21, 2016 11:53
--- NOTE | 2016-12-21 12:07 | PDOC ---
PROGRESS NOTES Subjective Subjective HPI - ITP - Severe thrombocytopenia with a platelet count of less than 3 on 11/24. On a manual count, platelet count result was 1. ROS - no bleed Objective Objective Vital Signs Date Time Temp Pulse Resp B/P (MAP) Pulse Ox O2 Delivery O2 Flow Rate FiO2 12/21/16 11:26 96 Room Air 12/21/16 10:58 96.8 60 18 115/59 (77) 96.8 Intake and Output 12/21/16 07:00 Intake Total 2735 ml Output Total 2500 ml Balance 235 ml Intake Oral 1360 ml IV Total 1375 ml Output Urine Total 2500 ml # Voids 1 # Bowel Movements 2 Physical Exam Heart: Normal S1, Normal S2 General: Alert, Oriented X3 Lungs: Clear to auscultation Neuro: Normal speech Psych/Mental Status: Mental status NL Assessment Assessment IMPRESSION AND PLAN: 1. ITP - Severe thrombocytopenia with a platelet count of less than 3 on . On a manual count, platelet count result was 1. Started prednisone 120 mg p.o. daily from 12/18/2016. IVIG on 12/19/16 with second dose 12/20/16 - 1 gm/kg. Overall, plts a little better at 16 on 12/21/16 and tolerating lower hemoglobin. For now can observe and transfuse if needed based on symptoms and would need a blood warmer Appears to have underlying lymphoproliferative d/o. Would need a blood warmer if transfusion needed. Phenotyping recommended by blood bank. 2. Autoimmune hemolytic anemia. Hemoglobin 8.1 on 12/18/2016 with an MCV of 110. Normal B12 level. Reticulocyte count is elevated at 7.6 and a total bilirubin 3.6, direct bilirubin 0.6. Monitor hemoglobin. Hb 6.8 and retic better at 5.7 on 12/21/16 3. Leukocytosis with elevated lymphocytes consistent with CLL. He also has evidence of lymphadenopathy in the cervical region and right axillary and left axillary region. 4. Renal failure with a creatinine of 1.8. Review of the old records indicates that he has chronically elevated creatinine level. 5. Fatigue secondary to anemia. Continue to monitor. 6. Lymphadenopathy due to suspected CLL. 7. DVT RLE on 12/18/16 - Has positive doppler, but no acute symptoms. Has prior history so may be chronic clot. In this situation would not anticoagulate given low plts and bleeding risk. Filter could be an option when counts improve. I d/w DR Sundar Gamez Comment Review of Relevant I have reviewed the following items ana maría (where applicable) has been applied. Labs Laboratory Tests Test 12/20/16 05:15 12/21/16 06:30 White Blood Count 36.4 x10^3/uL (4.0-11.0) 42.5 x10^3/uL (4.0-11.0) Red Blood Count 1.93 x10^6/uL (4.30-5.70) 2.00 x10^6/uL (4.30-5.70) Hemoglobin 6.6 g/dL (13.0-17.5) 6.8 g/dL (13.0-17.5) Hematocrit 21.7 % (39.0-53.0) 22.3 % (39.0-53.0) Mean Corpuscular Volume 113 fL (79-100) 112 fL (79-100) Mean Corpuscular Hemoglobin 34 pg (25-35) 34 pg (25-35) Mean Corpuscular Hemoglobin Concent 31 g/dL (31-37) 31 g/dL (31-37) Red Cell Distribution Width 16.8 % (11.5-14.5) 16.4 % (11.5-14.5) Platelet Count 9 x10^3/uL (140-400) 16 x10^3/uL (140-400) Sodium Level 141 mmol/L (136-145) 138 mmol/L (136-145) Potassium Level 4.1 mmol/L (3.5-5.1) 3.9 mmol/L (3.5-5.1) Chloride Level 106 mmol/L (98-107) 106 mmol/L (98-107) Carbon Dioxide Level 27 mmol/L (21-32) 27 mmol/L (21-32) Anion Gap 8 (6-14) 5 (6-14) Blood Urea Nitrogen 39 mg/dL (8-26) 39 mg/dL (8-26) Creatinine 1.7 mg/dL (0.7-1.3) 1.7 mg/dL (0.7-1.3) Estimated GFR (Cockcroft-Gault) 40.0 40.0 Glucose Level 134 mg/dL (70-99) 110 mg/dL (70-99) Calcium Level 8.0 mg/dL (8.5-10.1) 7.2 mg/dL (8.5-10.1) Phosphorus Level 5.2 mg/dL (2.6-4.7) 4.8 mg/dL (2.6-4.7) Magnesium Level 2.6 mg/dL (1.8-2.4) 2.6 mg/dL (1.8-2.4) Albumin 2.9 g/dL (3.4-5.0) 2.7 g/dL (3.4-5.0) Reticulocyte Count (auto) 5.7 % (0.5-2.5) Laboratory Tests Test 12/21/16 06:30 White Blood Count 42.5 x10^3/uL (4.0-11.0) Red Blood Count 2.00 x10^6/uL (4.30-5.70) Hemoglobin 6.8 g/dL (13.0-17.5) Hematocrit 22.3 % (39.0-53.0) Mean Corpuscular Volume 112 fL (79-100) Mean Corpuscular Hemoglobin 34 pg (25-35) Mean Corpuscular Hemoglobin Concent 31 g/dL (31-37) Red Cell Distribution Width 16.4 % (11.5-14.5) Platelet Count 16 x10^3/uL (140-400) Reticulocyte Count (auto) 5.7 % (0.5-2.5) Sodium Level 138 mmol/L (136-145) Potassium Level 3.9 mmol/L (3.5-5.1) Chloride Level 106 mmol/L (98-107) Carbon Dioxide Level 27 mmol/L (21-32) Anion Gap 5 (6-14) Blood Urea Nitrogen 39 mg/dL (8-26) Creatinine 1.7 mg/dL (0.7-1.3) Estimated GFR (Cockcroft-Gault) 40.0 Glucose Level 110 mg/dL (70-99) Calcium Level 7.2 mg/dL (8.5-10.1) Phosphorus Level 4.8 mg/dL (2.6-4.7) Magnesium Level 2.6 mg/dL (1.8-2.4) Albumin 2.7 g/dL (3.4-5.0) Medications Current Medications Allopurinol (Zyloprim) 300 mg DAILY PO Last administered on 12/21/16 11:24; Start 12/19/16 at 09:00 Levothyroxine Sodium (Synthroid) 150 mcg DAILY07 PO Last administered on 05:10; Start 12/19/16 at 07:00 Cyanocobalamin (Vitamin B-12) 1,000 mcg 1X ONCE SQ Last administered on 16:16; Start 12/18/16 at 13:30; Stop 12/18/16 at 13:31; Status DC Prednisone (Prednisone) 120 mg DAILY PO Last administered on 12/21/16 11:25; Start 12/18/16 at 15:30 Magnesium Sulfate/ Dextrose 50 ml @ 25 mls/hr PRN DAILY PRN IV for Mag < 1.7 on am labs; Start 12/18/16 at 15:15 Sodium Chloride 1,000 ml @ 75 mls/hr [id number] IV Last administered on 11:25; Start 12/18/16 at 15:30 Lorazepam (Ativan) 0.5 mg Q8HRS PRN IV ANXIETY / AGITATION Last administered on 12/18/16 17:51; Start 12/18/16 at 16:45 Immune Globulin 60 gm/Immune Globulin 40 gm/ Miscellaneous 1,001 ml @ 75 mls/ hr 1X ONCE IV Last administered on 12/19/16 12:03; Start 12/19/16 at 09:00 ; Stop 12/19/16 at 22:20; Status DC Immune Globulin 10 gm/Immune Globulin 120 gm/ Miscellaneous 1,301 ml @ 75 mls/ hr 1X ONCE IV Last administered on 12/20/16 11:00; Start 12/20/16 at 11:00 ; Stop 12/21/16 at 04:20; Status DC Levothyroxine Sodium (Synthroid) 150 mcg DAILY PO ; Start 12/20/16 at 09:00; Status UNV Lidocaine/Sodium Bicarbonate (Buffered Lidocaine 1%) 20 ml STK-MED ONCE IJ ; Start 12/21/16 at 09:56; Stop 12/21/16 at 09:57; Status DC Fentanyl Citrate (Fentanyl 2ml Vial) 100 mcg STK-MED ONCE .ROUTE ; Start at 10:16; Stop 12/21/16 at 10:17; Status DC Midazolam HCl (Versed) 5 mg STK-MED ONCE .ROUTE ; Start 12/21/16 at 10:16; Stop 12/21/16 at 10:17; Status DC Lidocaine/Sodium Bicarbonate (Buffered Lidocaine 1%) 20 ml 1X ONCE IJ Last administered on 12/21/16 10:33; Start 12/21/16 at 10:30; Stop 12/21/16 at 10 :31; Status DC Midazolam HCl (Versed) 5 mg 1X ONCE IV Last administered on 12/21/16 10:33; Start 12/21/16 at 10:30; Stop 12/21/16 at 10:31; Status DC Fentanyl Citrate (Fentanyl 2ml Vial) 100 mcg 1X ONCE IV Last administered on 12/21/16 10:34; Start 12/21/16 at 10:30; Stop 12/21/16 at 10:31; Status DC Pantoprazole Sodium (Protonix) 40 mg DAILYAC PO ; Start 12/21/16 at 12:00 Active Scripts Active Reported Colcrys (Colchicine) 0.6 Mg Tablet 1 Tab PO DAILY Lisinopril-Hctz 20-25 Mg Tab (Lisinopril/Hydrochlorothiazide) 1 Each Tablet 1 Tab PO DAILY Celecoxib 200 Mg Capsule 200 Mg PO PRN PRN Lortab 7.5-325 mg Tablet (Hydrocodone/Acetaminophen) 1 Each Tablet 1 Tab PO PRN Q6HRS PRN Levothyroxine Sodium 150 Mcg Tablet 1 Tab PO DAILY Vitals/I & O Vital Sign - Last 24 Hours 12/20/16 12/20/16 12/20/16 12/20/16 14:00 15:00 16:00 18:00 Temp 97.5 97.5 Pulse 64 66 65 62 Resp 18 18 B/P (MAP) 133/63 (86) 146/66 (92) 142/64 (90) 131/64 (86) Pulse Ox 96 O2 Delivery Room Air 12/20/16 12/20/16 12/20/16 12/20/16 18:21 19:00 20:00 20:02 Temp 98.2 98.2 Pulse 65 73 66 Resp 20 20 B/P (MAP) 130/66 (87) 142/72 (95) 120/62 (81) Pulse Ox 96 93 O2 Delivery Room Air Room Air Room Air 12/20/16 12/20/16 12/20/16 12/21/16 21:01 22:00 23:00 00:00 Temp 97.7 97.7 Pulse 73 68 65 75 Resp 20 20 20 20 B/P (MAP) 125/54 (77) 128/64 (85) 124/65 (84) 118/64 (82) Pulse Ox 95 96 96 95 O2 Delivery Room Air Room Air Room Air Room Air 12/21/16 12/21/16 12/21/16 12/21/16 01:00 03:01 07:00 08:00 Temp 97.5 96.8 97.5 96.8 Pulse 68 65 58 Resp 20 20 18 B/P (MAP) 131/62 (85) 134/67 (89) 127/67 (87) Pulse Ox 95 95 97 O2 Delivery Room Air Room Air Room Air Room Air 12/21/16 12/21/16 12/21/16 12/21/16 10:20 10:23 10:28 10:30 Pulse 67 67 78 67 Resp 18 18 16 16 O2 Delivery Room Air Room Air Room Air Room Air 12/21/16 12/21/16 12/21/16 10:34 10:58 11:26 Temp 96.8 96.8 Pulse 60 Resp 16 18 B/P (MAP) 115/59 (77) Pulse Ox 96 96 96 O2 Delivery Room Air Room Air Room Air Intake and Output 12/20/16 12/20/16 12/21/16 15:00 23:00 07:00 Intake Total 375 ml 1000 ml 1360 ml Output Total 1800 ml 700 ml Balance 375 ml -800 ml 660 ml PRINCE HANDLEY MD Dec 21, 2016 12:07
[2016-12-21 12:26] LABS: WHITE BLOOD COUNT 24.4 x10^3/uL (4.0-11.0)
[2016-12-21] MEDS: PANTOPRAZOLE 40 MG TABLET.DR. PO SCH (13:18)
[2016-12-21 13:29] LABS: BILIRUBIN,URINE NEGATIVE (NEG); GLUCOSE,URINE NEGATIVE (NEG); NITRITE,URINE NEGATIVE (NEG); PROTEIN,URINE NEGATIVE (NEG-TRACE); UROBILINOGEN,URINE 0.2 mg/dL (0.2 mg/dL)
[2016-12-21 13:45] LABS: BACTERIA,URINE 0 /HPF (0-FEW); RBC,URINE 0 /HPF (0-2); SQUAMOUS EPITHELIAL CELL,UR OCC /LPF; WBC,URINE 0 /HPF (0-4)
--- NOTE | 2016-12-21 14:46 | PDOC ---
G I PROGRESS NOTE Subjective No complaints. Had bone marrow today. Physical Exam Abdomen benign. Review of Relevant I have reviewed the following items ana maría (where applicable) has been applied. Labs Laboratory Tests Test 12/20/16 05:15 12/21/16 06:30 12/21/16 13:20 White Blood Count 36.4 x10^3/uL (4.0-11.0) 42.5 x10^3/uL (4.0-11.0) Red Blood Count 1.93 x10^6/uL (4.30-5.70) 2.00 x10^6/uL (4.30-5.70) Hemoglobin 6.6 g/dL (13.0-17.5) 6.8 g/dL (13.0-17.5) Hematocrit 21.7 % (39.0-53.0) 22.3 % (39.0-53.0) Mean Corpuscular Volume 113 fL (79-100) 112 fL (79-100) Mean Corpuscular Hemoglobin 34 pg (25-35) 34 pg (25-35) Mean Corpuscular Hemoglobin Concent 31 g/dL (31-37) 31 g/dL (31-37) Red Cell Distribution Width 16.8 % (11.5-14.5) 16.4 % (11.5-14.5) Platelet Count 9 x10^3/uL (140-400) 16 x10^3/uL (140-400) Sodium Level 141 mmol/L (136-145) 138 mmol/L (136-145) Potassium Level 4.1 mmol/L (3.5-5.1) 3.9 mmol/L (3.5-5.1) Chloride Level 106 mmol/L (98-107) 106 mmol/L (98-107) Carbon Dioxide Level 27 mmol/L (21-32) 27 mmol/L (21-32) Anion Gap 8 (6-14) 5 (6-14) Blood Urea Nitrogen 39 mg/dL (8-26) 39 mg/dL (8-26) Creatinine 1.7 mg/dL (0.7-1.3) 1.7 mg/dL (0.7-1.3) Estimated GFR (Cockcroft-Gault) 40.0 40.0 Glucose Level 134 mg/dL (70-99) 110 mg/dL (70-99) Calcium Level 8.0 mg/dL (8.5-10.1) 7.2 mg/dL (8.5-10.1) Phosphorus Level 5.2 mg/dL (2.6-4.7) 4.8 mg/dL (2.6-4.7) Magnesium Level 2.6 mg/dL (1.8-2.4) 2.6 mg/dL (1.8-2.4) Albumin 2.9 g/dL (3.4-5.0) 2.7 g/dL (3.4-5.0) Reticulocyte Count (auto) 5.7 % (0.5-2.5) Urine Collection Type Unknown Urine Color Yellow Urine Clarity Clear Urine pH 6.0 Urine Specific [place] 1.015 Urine Protein Negative mg/dL (NEG-TRACE) Urine Glucose (UA) Negative mg/dL (NEG) Urine Ketones (Stick) Negative mg/dL (NEG) Urine Blood Negative (NEG) Urine Nitrite Negative (NEG) Urine Bilirubin Negative (NEG) Urine Urobilinogen Dipstick 0.2 mg/dL (0.2 mg/dL) Urine Leukocyte Esterase Negative (NEG) Urine RBC 0 /HPF (0-2) Urine WBC 0 /HPF (0-4) Urine Squamous Epithelial Cells Occ /LPF Urine Bacteria 0 /HPF (0-FEW) Urine Mucus Slight /LPF Laboratory Tests Test 12/21/16 06:30 12/21/16 13:20 White Blood Count 42.5 x10^3/uL (4.0-11.0) Red Blood Count 2.00 x10^6/uL (4.30-5.70) Hemoglobin 6.8 g/dL (13.0-17.5) Hematocrit 22.3 % (39.0-53.0) Mean Corpuscular Volume 112 fL (79-100) Mean Corpuscular Hemoglobin 34 pg (25-35) Mean Corpuscular Hemoglobin Concent 31 g/dL (31-37) Red Cell Distribution Width 16.4 % (11.5-14.5) Platelet Count 16 x10^3/uL (140-400) Reticulocyte Count (auto) 5.7 % (0.5-2.5) Sodium Level 138 mmol/L (136-145) Potassium Level 3.9 mmol/L (3.5-5.1) Chloride Level 106 mmol/L (98-107) Carbon Dioxide Level 27 mmol/L (21-32) Anion Gap 5 (6-14) Blood Urea Nitrogen 39 mg/dL (8-26) Creatinine 1.7 mg/dL (0.7-1.3) Estimated GFR (Cockcroft-Gault) 40.0 Glucose Level 110 mg/dL (70-99) Calcium Level 7.2 mg/dL (8.5-10.1) Phosphorus Level 4.8 mg/dL (2.6-4.7) Magnesium Level 2.6 mg/dL (1.8-2.4) Albumin 2.7 g/dL (3.4-5.0) Urine Collection Type Unknown Urine Color Yellow Urine Clarity Clear Urine pH 6.0 Urine Specific [place] 1.015 Urine Protein Negative mg/dL (NEG-TRACE) Urine Glucose (UA) Negative mg/dL (NEG) Urine Ketones (Stick) Negative mg/dL (NEG) Urine Blood Negative (NEG) Urine Nitrite Negative (NEG) Urine Bilirubin Negative (NEG) Urine Urobilinogen Dipstick 0.2 mg/dL (0.2 mg/dL) Urine Leukocyte Esterase Negative (NEG) Urine RBC 0 /HPF (0-2) Urine WBC 0 /HPF (0-4) Urine Squamous Epithelial Cells Occ /LPF Urine Bacteria 0 /HPF (0-FEW) Urine Mucus Slight /LPF Platelets some better. Medications Current Medications Allopurinol (Zyloprim) 300 mg DAILY PO Last administered on 12/21/16 11:24; Start 12/19/16 at 09:00 Levothyroxine Sodium (Synthroid) 150 mcg DAILY07 PO Last administered on 05:10; Start 12/19/16 at 07:00 Cyanocobalamin (Vitamin B-12) 1,000 mcg 1X ONCE SQ Last administered on 16:16; Start 12/18/16 at 13:30; Stop 12/18/16 at 13:31; Status DC Prednisone (Prednisone) 120 mg DAILY PO Last administered on 12/21/16 11:25; Start 12/18/16 at 15:30 Magnesium Sulfate/ Dextrose 50 ml @ 25 mls/hr PRN DAILY PRN IV for Mag < 1.7 on am labs; Start 12/18/16 at 15:15 Sodium Chloride 1,000 ml @ 75 mls/hr [id number] IV Last administered on 11:25; Start 12/18/16 at 15:30 Lorazepam (Ativan) 0.5 mg Q8HRS PRN IV ANXIETY / AGITATION Last administered on 12/18/16 17:51; Start 12/18/16 at 16:45 Immune Globulin 60 gm/Immune Globulin 40 gm/ Miscellaneous 1,001 ml @ 75 mls/ hr 1X ONCE IV Last administered on 12/19/16 12:03; Start 12/19/16 at 09:00 ; Stop 12/19/16 at 22:20; Status DC Immune Globulin 10 gm/Immune Globulin 120 gm/ Miscellaneous 1,301 ml @ 75 mls/ hr 1X ONCE IV Last administered on 12/20/16 11:00; Start 12/20/16 at 11:00 ; Stop 12/21/16 at 04:20; Status DC Levothyroxine Sodium (Synthroid) 150 mcg DAILY PO ; Start 12/20/16 at 09:00; Status UNV Lidocaine/Sodium Bicarbonate (Buffered Lidocaine 1%) 20 ml STK-MED ONCE IJ ; Start 12/21/16 at 09:56; Stop 12/21/16 at 09:57; Status DC Fentanyl Citrate (Fentanyl 2ml Vial) 100 mcg STK-MED ONCE .ROUTE ; Start at 10:16; Stop 12/21/16 at 10:17; Status DC Midazolam HCl (Versed) 5 mg STK-MED ONCE .ROUTE ; Start 12/21/16 at 10:16; Stop 12/21/16 at 10:17; Status DC Lidocaine/Sodium Bicarbonate (Buffered Lidocaine 1%) 20 ml 1X ONCE IJ Last administered on 12/21/16 10:33; Start 12/21/16 at 10:30; Stop 12/21/16 at 10 :31; Status DC Midazolam HCl (Versed) 5 mg 1X ONCE IV Last administered on 12/21/16 10:33; Start 12/21/16 at 10:30; Stop 12/21/16 at 10:31; Status DC Fentanyl Citrate (Fentanyl 2ml Vial) 100 mcg 1X ONCE IV Last administered on 11/13/17at 10:34; Start 12/21/16 at 10:30; Stop 12/21/16 at 10:31; Status DC Pantoprazole Sodium (Protonix) 40 mg DAILYAC PO Last administered on 13:18; Start 12/21/16 at 12:00 Active Scripts Active Reported Colcrys (Colchicine) 0.6 Mg Tablet 1 Tab PO DAILY Lisinopril-Hctz 20-25 Mg Tab (Lisinopril/Hydrochlorothiazide) 1 Each Tablet 1 Tab PO DAILY Celecoxib 200 Mg Capsule 200 Mg PO PRN PRN Lortab 7.5-325 mg Tablet (Hydrocodone/Acetaminophen) 1 Each Tablet 1 Tab PO PRN Q6HRS PRN Levothyroxine Sodium 150 Mcg Tablet 1 Tab PO DAILY Vitals/I & O Vital Sign - Last 24 Hours 12/20/16 12/20/16 12/20/16 12/20/16 15:00 16:00 18:00 18:21 Temp 97.5 97.5 Pulse 66 65 62 65 Resp 18 B/P (MAP) 146/66 (92) 142/64 (90) 131/64 (86) 130/66 (87) Pulse Ox 96 O2 Delivery Room Air 12/20/16 12/20/16 12/20/16 12/20/16 19:00 20:00 20:02 21:01 Temp 98.2 98.2 Pulse 73 66 73 Resp 20 20 20 B/P (MAP) 142/72 (95) 120/62 (81) 125/54 (77) Pulse Ox 96 93 95 O2 Delivery Room Air Room Air Room Air Room Air 12/20/16 12/20/16 12/21/16 12/21/16 22:00 23:00 00:00 01:00 Temp 97.7 97.7 Pulse 68 65 75 68 Resp 20 20 20 20 B/P (MAP) 128/64 (85) 124/65 (84) 118/64 (82) 131/62 (85) Pulse Ox 96 96 95 95 O2 Delivery Room Air Room Air Room Air Room Air 12/21/16 12/21/16 12/21/16 12/21/16 03:01 07:00 08:00 10:20 Temp 97.5 96.8 97.5 96.8 Pulse 65 58 67 Resp 20 18 18 B/P (MAP) 134/67 (89) 127/67 (87) Pulse Ox 95 97 O2 Delivery Room Air Room Air Room Air Room Air 12/21/16 12/21/16 12/21/16 12/21/16 10:23 10:28 10:30 10:34 Pulse 67 78 67 Resp 18 16 16 16 Pulse Ox 96 O2 Delivery Room Air Room Air Room Air Room Air 12/21/16 12/21/16 10:58 11:26 Temp 96.8 96.8 Pulse 60 Resp 18 B/P (MAP) 115/59 (77) Pulse Ox 96 96 O2 Delivery Room Air Room Air Intake and Output 12/20/16 12/20/16 12/21/16 15:00 23:00 07:00 Intake Total 375 ml 1000 ml 1360 ml Output Total 1800 ml 700 ml Balance 375 ml -800 ml 660 ml Assessment ITP/AIHA/CLL Plan of Care: Continue current Tx, Mgmt Plan of Care Note Await bone marrow results. OLIVER OTT MD Dec 21, 2016 14:46
[2016-12-22 03:00] VITALS: BP 120/70
[2016-12-22 05:17] LABS: HEMATOCRIT 22.7 % (39.0-53.0); RED BLOOD COUNT 2.08 x10^6/uL (4.30-5.70); WHITE BLOOD COUNT 37.5 x10^3/uL (4.0-11.0)
[2016-12-22] MEDS: PANTOPRAZOLE 40 MG TABLET.DR. PO SCH (05:20)
[2016-12-22] MEDS: LEVOTHYROXINE 150 MCG TABLET PO SCH (05:20)
[2016-12-22 05:58] LABS: ALBUMIN 2.7 g/dL (3.4-5.0); CALCIUM 7.2 mg/dL (8.5-10.1); CREATININE 1.6 mg/dL (0.7-1.3); GFR 42.9; PHOSPHORUS 4.8 mg/dL (2.6-4.7); POTASSIUM 4.2 mmol/L (3.5-5.1)
[2016-12-22 07:45] VITALS: BP 136/75
[2016-12-22] MEDS: ALLOPURINOL 300 MG TABLET. PO SCH (07:46)
[2016-12-22] MEDS: predniSONE 20 MG TABLET PO SCH (07:48)
--- NOTE | 2016-12-22 08:26 | PDOC ---
Provider Note Provider Note vss, bp ok- retic down 5.6 , hb same , platelts up 22 K- marrow pending, wbc same- cont same, added protonix re steroids JOSIAH CEBALLOS MD Dec 22, 2016 08:26
[2016-12-22 10:30] VITALS: BP 127/62
--- NOTE | 2016-12-22 11:13 | PDOC ---
Subjective: Subjective: In restroom. Family says taking a sponge bath, feeling okay. Objective: Vital Signs: Vital Signs Date Time Temp Pulse Resp B/P (MAP) Pulse Ox O2 Delivery O2 Flow Rate FiO2 12/22/16 07:45 97.5 63 18 136/75 (95) 96 Room Air 97.5 Labs: Laboratory Tests Test 12/21/16 13:20 12/22/16 04:44 Urine Collection Type Unknown Urine Color Yellow Urine Clarity Clear Urine pH 6.0 Urine Specific [place] 1.015 Urine Protein Negative mg/dL Urine Glucose (UA) Negative mg/dL Urine Ketones (Stick) Negative mg/dL Urine Blood Negative Urine Nitrite Negative Urine Bilirubin Negative Urine Urobilinogen Dipstick 0.2 mg/dL Urine Leukocyte Esterase Negative Urine RBC 0 /HPF Urine WBC 0 /HPF Urine Squamous Epithelial Cells Occ /LPF Urine Bacteria 0 /HPF Urine Mucus Slight /LPF White Blood Count 37.5 x10^3/uL Red Blood Count 2.08 x10^6/uL Hemoglobin 7.0 g/dL Hematocrit 22.7 % Mean Corpuscular Volume 109 fL Mean Corpuscular Hemoglobin 34 pg Mean Corpuscular Hemoglobin Concent 31 g/dL Red Cell Distribution Width 16.0 % Platelet Count 22 x10^3/uL Reticulocyte Count (auto) 5.6 % Sodium Level 140 mmol/L Potassium Level 4.2 mmol/L Chloride Level 108 mmol/L Carbon Dioxide Level 26 mmol/L Anion Gap 6 Blood Urea Nitrogen 38 mg/dL Creatinine 1.6 mg/dL Estimated GFR (Cockcroft-Gault) 42.9 Glucose Level 131 mg/dL Calcium Level 7.2 mg/dL Phosphorus Level 4.8 mg/dL Magnesium Level 2.7 mg/dL Lactate Dehydrogenase 349 U/L Albumin 2.7 g/dL PE: no exam A/P: ITP/AIHA/CLL -- Bone marrow biopsy pending. Note started on PPI. JOSE MARQUEZ Dec 22, 2016 11:13
--- NOTE | 2016-12-22 11:36 | PDOC ---
Renal-Progress Notes Subjective Notes Notes NONE History of Present Illness Hx of present illness STABLE Vitals Vitals Vital Signs Date Time Temp Pulse Resp B/P (MAP) Pulse Ox O2 Delivery O2 Flow Rate FiO2 12/22/16 10:30 97.5 62 18 127/62 (83) 95 Room Air 97.5 Weight Weight [ ] I.O. Intake and Output Intake and Output 12/22/16 07:00 Intake Total 2200 ml Output Total 400 ml Balance 1800 ml Intake Oral 2200 ml Output Urine Total 400 ml # Voids 5 # Bowel Movements 1 Labs Labs Laboratory Tests Test 12/21/16 13:20 12/22/16 04:44 Urine Collection Type Unknown Urine Color Yellow Urine Clarity Clear Urine pH 6.0 Urine Specific [place] 1.015 Urine Protein Negative mg/dL (NEG-TRACE) Urine Glucose (UA) Negative mg/dL (NEG) Urine Ketones (Stick) Negative mg/dL (NEG) Urine Blood Negative (NEG) Urine Nitrite Negative (NEG) Urine Bilirubin Negative (NEG) Urine Urobilinogen Dipstick 0.2 mg/dL (0.2 mg/dL) Urine Leukocyte Esterase Negative (NEG) Urine RBC 0 /HPF (0-2) Urine WBC 0 /HPF (0-4) Urine Squamous Epithelial Cells Occ /LPF Urine Bacteria 0 /HPF (0-FEW) Urine Mucus Slight /LPF White Blood Count 37.5 x10^3/uL (4.0-11.0) Red Blood Count 2.08 x10^6/uL (4.30-5.70) Hemoglobin 7.0 g/dL (13.0-17.5) Hematocrit 22.7 % (39.0-53.0) Mean Corpuscular Volume 109 fL (79-100) Mean Corpuscular Hemoglobin 34 pg (25-35) Mean Corpuscular Hemoglobin Concent 31 g/dL (31-37) Red Cell Distribution Width 16.0 % (11.5-14.5) Platelet Count 22 x10^3/uL (140-400) Reticulocyte Count (auto) 5.6 % (0.5-2.5) Sodium Level 140 mmol/L (136-145) Potassium Level 4.2 mmol/L (3.5-5.1) Chloride Level 108 mmol/L (98-107) Carbon Dioxide Level 26 mmol/L (21-32) Anion Gap 6 (6-14) Blood Urea Nitrogen 38 mg/dL (8-26) Creatinine 1.6 mg/dL (0.7-1.3) Estimated GFR (Cockcroft-Gault) 42.9 Glucose Level 131 mg/dL (70-99) Calcium Level 7.2 mg/dL (8.5-10.1) Phosphorus Level 4.8 mg/dL (2.6-4.7) Magnesium Level 2.7 mg/dL (1.8-2.4) Lactate Dehydrogenase 349 U/L (85-227) Albumin 2.7 g/dL (3.4-5.0) Review of Systems Constitutional: yes: malaise, weakness, alert, oriented Ears/Nose/Throat: Yes: no symptom reported Pulmonary: Yes no symptom reported Cardiovascular: Yes no symptom reported Gastrointestional: Yes: no symptom reported Genitourinary: Yes: no symptom reported Musculoskeletal: Yes: no symptom reported Psychiatric/Neurological: Yes: no symptom reported Endocrine: Yes: no symptom reported Physical Exam General Appearance: no apparent distress Skin: warm Respiratory: bilateral CTA Heart: S1S2 Abdomen: soft, bowel sounds present Genitourinary: bladder flat Extremities: pulses present Neurology: alert, oriented, follow commands Musculoskeletal: Osteoarthritis Assessment Assessment IMP CKD STAGE 3 - STABLE WITH CR OF ABOUT 1.8 PULM HTN WITH SOB HEMOPTYSIS RESOLVED ITP LYMPHOPROLIFERATIVE DZ AIHM ANEMIA PLAN ON PREDNISONE AND IVIG UA NEG FOR NEPHRITIS CONT WITH IVF NS LABS IN FAYE WILLIS MD Dec 22, 2016 11:36
--- NOTE | 2016-12-22 13:01 | PDOC ---
PULMONARY PROGRESS NOTES Subjective PT WITH NO HEMOPTYSIS feels better Vitals Vital Signs Date Time Temp Pulse Resp B/P (MAP) Pulse Ox O2 Delivery O2 Flow Rate FiO2 12/22/16 10:30 97.5 62 18 127/62 (83) 95 Room Air 97.5 ROS: No Nausea, No Chest Pain, No Abdominal Pain, No Increase Cough General: Alert, No acute distress Lungs: Clear Cardiovascular: S1, S2 Abdomen: Soft, Non-tender Neuro Exam: Alert Extremities: No Edema, Other (echymosis upper extremity) Skin: Warm Labs Laboratory Tests Test 12/21/16 06:30 12/21/16 13:20 12/22/16 04:44 White Blood Count 42.5 x10^3/uL (4.0-11.0) 37.5 x10^3/uL (4.0-11.0) Red Blood Count 2.00 x10^6/uL (4.30-5.70) 2.08 x10^6/uL (4.30-5.70) Hemoglobin 6.8 g/dL (13.0-17.5) 7.0 g/dL (13.0-17.5) Hematocrit 22.3 % (39.0-53.0) 22.7 % (39.0-53.0) Mean Corpuscular Volume 112 fL (79-100) 109 fL (79-100) Mean Corpuscular Hemoglobin 34 pg (25-35) 34 pg (25-35) Mean Corpuscular Hemoglobin Concent 31 g/dL (31-37) 31 g/dL (31-37) Red Cell Distribution Width 16.4 % (11.5-14.5) 16.0 % (11.5-14.5) Platelet Count 16 x10^3/uL (140-400) 22 x10^3/uL (140-400) Reticulocyte Count (auto) 5.7 % (0.5-2.5) 5.6 % (0.5-2.5) Sodium Level 138 mmol/L (136-145) 140 mmol/L (136-145) Potassium Level 3.9 mmol/L (3.5-5.1) 4.2 mmol/L (3.5-5.1) Chloride Level 106 mmol/L (98-107) 108 mmol/L (98-107) Carbon Dioxide Level 27 mmol/L (21-32) 26 mmol/L (21-32) Anion Gap 5 (6-14) 6 (6-14) Blood Urea Nitrogen 39 mg/dL (8-26) 38 mg/dL (8-26) Creatinine 1.7 mg/dL (0.7-1.3) 1.6 mg/dL (0.7-1.3) Estimated GFR (Cockcroft-Gault) 40.0 42.9 Glucose Level 110 mg/dL (70-99) 131 mg/dL (70-99) Calcium Level 7.2 mg/dL (8.5-10.1) 7.2 mg/dL (8.5-10.1) Phosphorus Level 4.8 mg/dL (2.6-4.7) 4.8 mg/dL (2.6-4.7) Magnesium Level 2.6 mg/dL (1.8-2.4) 2.7 mg/dL (1.8-2.4) Albumin 2.7 g/dL (3.4-5.0) 2.7 g/dL (3.4-5.0) Urine Collection Type Unknown Urine Color Yellow Urine Clarity Clear Urine pH 6.0 Urine Specific [place] 1.015 Urine Protein Negative mg/dL (NEG-TRACE) Urine Glucose (UA) Negative mg/dL (NEG) Urine Ketones (Stick) Negative mg/dL (NEG) Urine Blood Negative (NEG) Urine Nitrite Negative (NEG) Urine Bilirubin Negative (NEG) Urine Urobilinogen Dipstick 0.2 mg/dL (0.2 mg/dL) Urine Leukocyte Esterase Negative (NEG) Urine RBC 0 /HPF (0-2) Urine WBC 0 /HPF (0-4) Urine Squamous Epithelial Cells Occ /LPF Urine Bacteria 0 /HPF (0-FEW) Urine Mucus Slight /LPF Lactate Dehydrogenase 349 U/L (85-227) Laboratory Tests Test 12/21/16 13:20 12/22/16 04:44 Urine Collection Type Unknown Urine Color Yellow Urine Clarity Clear Urine pH 6.0 Urine Specific [place] 1.015 Urine Protein Negative mg/dL (NEG-TRACE) Urine Glucose (UA) Negative mg/dL (NEG) Urine Ketones (Stick) Negative mg/dL (NEG) Urine Blood Negative (NEG) Urine Nitrite Negative (NEG) Urine Bilirubin Negative (NEG) Urine Urobilinogen Dipstick 0.2 mg/dL (0.2 mg/dL) Urine Leukocyte Esterase Negative (NEG) Urine RBC 0 /HPF (0-2) Urine WBC 0 /HPF (0-4) Urine Squamous Epithelial Cells Occ /LPF Urine Bacteria 0 /HPF (0-FEW) Urine Mucus Slight /LPF White Blood Count 37.5 x10^3/uL (4.0-11.0) Red Blood Count 2.08 x10^6/uL (4.30-5.70) Hemoglobin 7.0 g/dL (13.0-17.5) Hematocrit 22.7 % (39.0-53.0) Mean Corpuscular Volume 109 fL (79-100) Mean Corpuscular Hemoglobin 34 pg (25-35) Mean Corpuscular Hemoglobin Concent 31 g/dL (31-37) Red Cell Distribution Width 16.0 % (11.5-14.5) Platelet Count 22 x10^3/uL (140-400) Reticulocyte Count (auto) 5.6 % (0.5-2.5) Sodium Level 140 mmol/L (136-145) Potassium Level 4.2 mmol/L (3.5-5.1) Chloride Level 108 mmol/L (98-107) Carbon Dioxide Level 26 mmol/L (21-32) Anion Gap 6 (6-14) Blood Urea Nitrogen 38 mg/dL (8-26) Creatinine 1.6 mg/dL (0.7-1.3) Estimated GFR (Cockcroft-Gault) 42.9 Glucose Level 131 mg/dL (70-99) Calcium Level 7.2 mg/dL (8.5-10.1) Phosphorus Level 4.8 mg/dL (2.6-4.7) Magnesium Level 2.7 mg/dL (1.8-2.4) Lactate Dehydrogenase 349 U/L (85-227) Albumin 2.7 g/dL (3.4-5.0) Medications Active Scripts Medications Dose Route/Sig Max Daily Dose Days Date Category Colcrys (Colchicine) 0.6 Mg Tablet 1 Tab PO DAILY 04/30/14 Reported Lisinopril-Hctz 20-25 Mg Tab (Lisinopril/Hydrochlorothiazide) 1 Each Tablet 1 Tab PO DAILY 04/30/14 Reported Celecoxib 200 Mg Capsule 200 Mg PO PRN PRN 04/30/14 Reported Lortab 7.5-325 mg Tablet (Hydrocodone/Acetaminophen) 1 Each Tablet 1 Tab PO PRN Q6HRS PRN 01/02/14 Reported Levothyroxine Sodium 150 Mcg Tablet 1 Tab PO DAILY 01/02/14 Reported Impression . 1. Progressive dyspnea, multifactorial secondary to anemia, moderate secondary pulmonary hypertension (PA 61), morbid obesity and deconditioning. 2. underlying CLL. 3. ITP 4. Autoimmune hemolytic anemia. 5. Chronic diastolic heart failure. 6. Hypothyroidism. 7. Morbid obesity. 8. Osteoarthritis. 9. Hyperlipidemia. 10. Chronic renal insufficiency. 11. Positive D-dimer. DVT is seen involving the right popliteal vein and right superficial femoral vein. Low probability study. V/Q Plan . 1. Platelets Still very low. will hold off on anticoagulation, may benefit from IVC IN FUTURE IF NEEDED. 2. Oxygen supplementation as needed. 3. nephrology recommendations 4. Outpatient polysomnogram. 5. IVIG per hematology/ transfusion prn 6. High dose steroids d/w , clinically improving BERONICA ALLEN MD Dec 22, 2016 13:01
[2016-12-22] MEDS: IV NORMAL SALINE 1000ML BAG 1,000 ML IV SCH ×2 (13:30→22:24)
--- NOTE | 2016-12-22 13:51 | PDOC ---
PROGRESS NOTES Subjective Subjective HPI - ITP - Severe thrombocytopenia with a platelet count of less than 3 on 11/24. On a manual count, platelet count result was 1. Started prednisone 120 mg p.o. daily from 12/18/2016. ROS - no bleed Objective Objective Vital Signs Date Time Temp Pulse Resp B/P (MAP) Pulse Ox O2 Delivery O2 Flow Rate FiO2 12/22/16 10:30 97.5 62 18 127/62 (83) 95 Room Air 97.5 Intake and Output 12/22/16 07:00 Intake Total 2200 ml Output Total 400 ml Balance 1800 ml Intake Oral 2200 ml Output Urine Total 400 ml # Voids 5 # Bowel Movements 1 Physical Exam Heart: Normal S1, Normal S2 General: Alert, Oriented X3, No acute distress Lungs: Clear to auscultation Neuro: Normal speech Psych/Mental Status: Mental status NL Assessment Assessment IMPRESSION AND PLAN: 1. ITP - Severe thrombocytopenia with a platelet count of less than 3 on . On a manual count, platelet count result was 1. Started prednisone 120 mg p.o. daily from 12/18/2016. IVIG on 12/19/16 with second dose 12/20/16 - 1 gm/kg. Overall, plts a little better at 16 on 12/21/16 and 22 on 12/22/16 and tolerating lower hemoglobin. For now can observe and transfuse if needed based on symptoms and would need a blood warmer Appears to have underlying lymphoproliferative d/o. Would need a blood warmer if transfusion needed. Phenotyping recommended by blood bank. 2. Autoimmune hemolytic anemia. Hemoglobin 8.1 on 12/18/2016 with an MCV of 110. Normal B12 level. Reticulocyte count is elevated at 7.6 and a total bilirubin 3.6, direct bilirubin 0.6. Monitor hemoglobin. Hb 6.8 and retic better at 5.7 on 12/21/16 Hb 7.0 on 12/22/16 Also added folic acid 1 mg daily. 3. Leukocytosis with elevated lymphocytes consistent with CLL. He also has evidence of lymphadenopathy in the cervical region and right axillary and left axillary region. s/p Bone marrow bx 12/21/16. 4. Renal failure with a creatinine of 1.8. Review of the old records indicates that he has chronically elevated creatinine level. 5. Fatigue secondary to anemia. Continue to monitor. 6. Lymphadenopathy due to suspected CLL. 7. DVT RLE on 12/18/16 - Has positive doppler, but no acute symptoms. Has prior history so may be chronic clot. In this situation would not anticoagulate given low plts and bleeding risk. Filter could be an option when counts improve. I d/w DR uSndar Gamez Comment Review of Relevant I have reviewed the following items ana maría (where applicable) has been applied. Labs Laboratory Tests Test 12/21/16 06:30 12/21/16 13:20 12/22/16 04:44 White Blood Count 42.5 x10^3/uL (4.0-11.0) 37.5 x10^3/uL (4.0-11.0) Red Blood Count 2.00 x10^6/uL (4.30-5.70) 2.08 x10^6/uL (4.30-5.70) Hemoglobin 6.8 g/dL (13.0-17.5) 7.0 g/dL (13.0-17.5) Hematocrit 22.3 % (39.0-53.0) 22.7 % (39.0-53.0) Mean Corpuscular Volume 112 fL (79-100) 109 fL (79-100) Mean Corpuscular Hemoglobin 34 pg (25-35) 34 pg (25-35) Mean Corpuscular Hemoglobin Concent 31 g/dL (31-37) 31 g/dL (31-37) Red Cell Distribution Width 16.4 % (11.5-14.5) 16.0 % (11.5-14.5) Platelet Count 16 x10^3/uL (140-400) 22 x10^3/uL (140-400) Reticulocyte Count (auto) 5.7 % (0.5-2.5) 5.6 % (0.5-2.5) Sodium Level 138 mmol/L (136-145) 140 mmol/L (136-145) Potassium Level 3.9 mmol/L (3.5-5.1) 4.2 mmol/L (3.5-5.1) Chloride Level 106 mmol/L (98-107) 108 mmol/L (98-107) Carbon Dioxide Level 27 mmol/L (21-32) 26 mmol/L (21-32) Anion Gap 5 (6-14) 6 (6-14) Blood Urea Nitrogen 39 mg/dL (8-26) 38 mg/dL (8-26) Creatinine 1.7 mg/dL (0.7-1.3) 1.6 mg/dL (0.7-1.3) Estimated GFR (Cockcroft-Gault) 40.0 42.9 Glucose Level 110 mg/dL (70-99) 131 mg/dL (70-99) Calcium Level 7.2 mg/dL (8.5-10.1) 7.2 mg/dL (8.5-10.1) Phosphorus Level 4.8 mg/dL (2.6-4.7) 4.8 mg/dL (2.6-4.7) Magnesium Level 2.6 mg/dL (1.8-2.4) 2.7 mg/dL (1.8-2.4) Albumin 2.7 g/dL (3.4-5.0) 2.7 g/dL (3.4-5.0) Urine Collection Type Unknown Urine Color Yellow Urine Clarity Clear Urine pH 6.0 Urine Specific [place] 1.015 Urine Protein Negative mg/dL (NEG-TRACE) Urine Glucose (UA) Negative mg/dL (NEG) Urine Ketones (Stick) Negative mg/dL (NEG) Urine Blood Negative (NEG) Urine Nitrite Negative (NEG) Urine Bilirubin Negative (NEG) Urine Urobilinogen Dipstick 0.2 mg/dL (0.2 mg/dL) Urine Leukocyte Esterase Negative (NEG) Urine RBC 0 /HPF (0-2) Urine WBC 0 /HPF (0-4) Urine Squamous Epithelial Cells Occ /LPF Urine Bacteria 0 /HPF (0-FEW) Urine Mucus Slight /LPF Lactate Dehydrogenase 349 U/L (85-227) Laboratory Tests Test 12/22/16 04:44 White Blood Count 37.5 x10^3/uL (4.0-11.0) Red Blood Count 2.08 x10^6/uL (4.30-5.70) Hemoglobin 7.0 g/dL (13.0-17.5) Hematocrit 22.7 % (39.0-53.0) Mean Corpuscular Volume 109 fL (79-100) Mean Corpuscular Hemoglobin 34 pg (25-35) Mean Corpuscular Hemoglobin Concent 31 g/dL (31-37) Red Cell Distribution Width 16.0 % (11.5-14.5) Platelet Count 22 x10^3/uL (140-400) Reticulocyte Count (auto) 5.6 % (0.5-2.5) Sodium Level 140 mmol/L (136-145) Potassium Level 4.2 mmol/L (3.5-5.1) Chloride Level 108 mmol/L (98-107) Carbon Dioxide Level 26 mmol/L (21-32) Anion Gap 6 (6-14) Blood Urea Nitrogen 38 mg/dL (8-26) Creatinine 1.6 mg/dL (0.7-1.3) Estimated GFR (Cockcroft-Gault) 42.9 Glucose Level 131 mg/dL (70-99) Calcium Level 7.2 mg/dL (8.5-10.1) Phosphorus Level 4.8 mg/dL (2.6-4.7) Magnesium Level 2.7 mg/dL (1.8-2.4) Lactate Dehydrogenase 349 U/L (85-227) Albumin 2.7 g/dL (3.4-5.0) Medications Current Medications Allopurinol (Zyloprim) 300 mg DAILY PO Last administered on 12/22/16 07:46; Start 12/19/16 at 09:00 Levothyroxine Sodium (Synthroid) 150 mcg DAILY07 PO Last administered on 05:20; Start 12/19/16 at 07:00 Cyanocobalamin (Vitamin B-12) 1,000 mcg 1X ONCE SQ Last administered on 16:16; Start 12/18/16 at 13:30; Stop 12/18/16 at 13:31; Status DC Prednisone (Prednisone) 120 mg DAILY PO Last administered on 12/22/16 07:48; Start 12/18/16 at 15:30 Magnesium Sulfate/ Dextrose 50 ml @ 25 mls/hr PRN DAILY PRN IV for Mag < 1.7 on am labs; Start 12/18/16 at 15:15 Sodium Chloride 1,000 ml @ 75 mls/hr [id number] IV Last administered on 13:30; Start 12/18/16 at 15:30 Lorazepam (Ativan) 0.5 mg Q8HRS PRN IV ANXIETY / AGITATION Last administered on 12/18/16 17:51; Start 12/18/16 at 16:45 Immune Globulin 60 gm/Immune Globulin 40 gm/ Miscellaneous 1,001 ml @ 75 mls/ hr 1X ONCE IV Last administered on 12/19/16 12:03; Start 12/19/16 at 09:00 ; Stop 12/19/16 at 22:20; Status DC Immune Globulin 10 gm/Immune Globulin 120 gm/ Miscellaneous 1,301 ml @ 75 mls/ hr 1X ONCE IV Last administered on 12/20/16 11:00; Start 12/20/16 at 11:00 ; Stop 12/21/16 at 04:20; Status DC Levothyroxine Sodium (Synthroid) 150 mcg DAILY PO ; Start 12/20/16 at 09:00; Status UNV Lidocaine/Sodium Bicarbonate (Buffered Lidocaine 1%) 20 ml STK-MED ONCE IJ ; Start 12/21/16 at 09:56; Stop 12/21/16 at 09:57; Status DC Fentanyl Citrate (Fentanyl 2ml Vial) 100 mcg STK-MED ONCE .ROUTE ; Start at 10:16; Stop 12/21/16 at 10:17; Status DC Midazolam HCl (Versed) 5 mg STK-MED ONCE .ROUTE ; Start 12/21/16 at 10:16; Stop 12/21/16 at 10:17; Status DC Lidocaine/Sodium Bicarbonate (Buffered Lidocaine 1%) 20 ml 1X ONCE IJ Last administered on 12/21/16 10:33; Start 12/21/16 at 10:30; Stop 12/21/16 at 10 :31; Status DC Midazolam HCl (Versed) 5 mg 1X ONCE IV Last administered on 12/21/16 10:33; Start 12/21/16 at 10:30; Stop 12/21/16 at 10:31; Status DC Fentanyl Citrate (Fentanyl 2ml Vial) 100 mcg 1X ONCE IV Last administered on 12/21/16 10:34; Start 12/21/16 at 10:30; Stop 12/21/16 at 10:31; Status DC Pantoprazole Sodium (Protonix) 40 mg DAILYAC PO Last administered on 05:20; Start 12/21/16 at 12:00 Folic Acid (Folic Acid) 1 mg DAILY PO ; Start 12/23/16 at 09:00; Status UNV Active Scripts Active Reported Colcrys (Colchicine) 0.6 Mg Tablet 1 Tab PO DAILY Lisinopril-Hctz 20-25 Mg Tab (Lisinopril/Hydrochlorothiazide) 1 Each Tablet 1 Tab PO DAILY Celecoxib 200 Mg Capsule 200 Mg PO PRN PRN Lortab 7.5-325 mg Tablet (Hydrocodone/Acetaminophen) 1 Each Tablet 1 Tab PO PRN Q6HRS PRN Levothyroxine Sodium 150 Mcg Tablet 1 Tab PO DAILY Vitals/I & O Vital Sign - Last 24 Hours 12/21/16 12/21/16 12/21/16 12/21/16 15:00 19:00 20:00 23:00 Temp 97.5 98.4 98.3 97.5 98.4 98.3 Pulse 70 67 68 Resp 18 18 18 B/P (MAP) 125/71 (89) 132/71 (91) 119/72 (88) Pulse Ox 94 98 93 O2 Delivery Room Air Room Air Room Air Room Air 12/22/16 12/22/16 12/22/16 12/22/16 03:00 07:20 07:45 10:30 Temp 97.6 97.5 97.5 97.6 97.5 97.5 Pulse 59 63 62 Resp 20 18 18 B/P (MAP) 120/70 (87) 136/75 (95) 127/62 (83) Pulse Ox 96 96 95 O2 Delivery Room Air Room Air Room Air Room Air Intake and Output 12/21/16 12/21/16 12/22/16 15:00 23:00 07:00 Intake Total 300 ml 1300 ml 600 ml Output Total 400 ml Balance 300 ml 1300 ml 200 ml PRINCE HANDLEY MD Dec 22, 2016 13:51
[2016-12-22 14:30] VITALS: BP 112/54
[2016-12-22] MEDS: FOLIC ACID 1 MG TABLET. PO SCH (15:49)
[2016-12-22 19:00] VITALS: BP 141/62
[2016-12-22 23:00] VITALS: BP 120/61
[2016-12-23 03:00] VITALS: BP 129/66
[2016-12-23] MEDS: LEVOTHYROXINE 150 MCG TABLET PO SCH (05:16)
[2016-12-23] MEDS: PANTOPRAZOLE 40 MG TABLET.DR. PO SCH (05:16)
[2016-12-23 06:32] LABS: ALBUMIN 2.9 g/dL (3.4-5.0); ALBUMIN/GLOBULIN RATIO 0.7 (1.0-1.7); CALCIUM 7.6 mg/dL (8.5-10.1); CREATININE 1.7 mg/dL (0.7-1.3); MAGNESIUM 2.7 mg/dL (1.8-2.4); POTASSIUM 4.4 mmol/L (3.5-5.1); TOTAL BILIRUBIN 0.9 mg/dL (0.2-1.0); TOTAL PROTEIN 7.3 g/dL (6.4-8.2)
[2016-12-23 06:38] LABS: BASO # 0.1 x10^3/uL (0.0-0.2); BASO % 0 % (0-3); EOS % 0 % (0-3); HEMATOCRIT 26.5 % (39.0-53.0); HEMOGLOBIN 8.2 g/dL (13.0-17.5); LYMPH # 41.6 x10^3/uL (1.0-4.8); LYMPH % 87 % (24-48); MEAN CORPUSCULAR HEMOGLOBIN 34 pg (25-35); MEAN CORPUSCULAR HGB CONC 31 g/dL (31-37); MEAN CORPUSCULAR VOLUME 109 fL (79-100); MONO % 2 % (0-9); NEUT % 12 % (31-73); PLATELET COUNT 27 x10^3/uL (140-400); RED BLOOD COUNT 2.43 x10^6/uL (4.30-5.70); RED CELL DISTRIBUTION WIDTH 15.7 % (11.5-14.5)
[2016-12-23 07:00] VITALS: BP 128/63
[2016-12-23 07:33] LABS: WHITE BLOOD COUNT 48.1 x10^3/uL (4.0-11.0)
[2016-12-23 07:35] LABS: RETIC COUNT 5.2 % (0.5-2.5)
[2016-12-23] MEDS: FOLIC ACID 1 MG TABLET. PO SCH (08:12)
[2016-12-23] MEDS: ALLOPURINOL 300 MG TABLET. PO SCH (08:13)
[2016-12-23] MEDS: predniSONE 20 MG TABLET PO SCH (08:13)
--- NOTE | 2016-12-23 08:49 | PDOC ---
Provider Note Provider Note platelets up 27K, hb 8.2, bili and retic down-marrow pending - if hb good 12/24 , likely dc and follow op JOSIAH CEBALLOS MD Dec 23, 2016 08:49
[2016-12-23 09:59] LABS: PLT ESTIMATE DECREASED (ADEQUATE)
[2016-12-23 10:00] LABS: ANISOCYTOSIS PRESENT
--- NOTE | 2016-12-23 10:58 | PDOC ---
Renal-Progress Notes Subjective Notes Notes NONE History of Present Illness Hx of present illness STABLE Vitals Vitals Vital Signs Date Time Temp Pulse Resp B/P (MAP) Pulse Ox O2 Delivery O2 Flow Rate FiO2 12/23/16 08:00 Room Air 12/23/16 07:00 96.6 79 20 128/63 (84) 94 96.6 Weight Weight [ ] I.O. Intake and Output Intake and Output 12/23/16 07:00 Intake Total 3050 ml Output Total 1725 ml Balance 1325 ml Intake Oral 1050 ml IV Total 2000 ml Output Urine Total 1725 ml # Voids 1 # Bowel Movements 1 Labs Labs Laboratory Tests Test 12/23/16 05:45 White Blood Count 48.1 x10^3/uL (4.0-11.0) Red Blood Count 2.43 x10^6/uL (4.30-5.70) Hemoglobin 8.2 g/dL (13.0-17.5) Hematocrit 26.5 % (39.0-53.0) Mean Corpuscular Volume 109 fL (79-100) Mean Corpuscular Hemoglobin 34 pg (25-35) Mean Corpuscular Hemoglobin Concent 31 g/dL (31-37) Red Cell Distribution Width 15.7 % (11.5-14.5) Platelet Count 27 x10^3/uL (140-400) Neutrophils (%) (Auto) 12 % (31-73) Lymphocytes (%) (Auto) 87 % (24-48) Monocytes (%) (Auto) 2 % (0-9) Eosinophils (%) (Auto) 0 % (0-3) Basophils (%) (Auto) 0 % (0-3) Neutrophils # (Auto) 5.6 x10^3uL (1.8-7.7) Lymphocytes # (Auto) 41.6 x10^3/uL (1.0-4.8) Monocytes # (Auto) 0.7 x10^3/uL (0.0-1.1) Eosinophils # (Auto) 0.0 x10^3/uL (0.0-0.7) Basophils # (Auto) 0.1 x10^3/uL (0.0-0.2) Segmented Neutrophils % 15 % (35-66) Lymphocytes % 85 % (24-48) Platelet Estimate Decreased (ADEQUATE) Basophilic Stippling Present Anisocytosis Present Macrocytosis Present Reticulocyte Count (auto) 5.2 % (0.5-2.5) Sodium Level 141 mmol/L (136-145) Potassium Level 4.4 mmol/L (3.5-5.1) Chloride Level 110 mmol/L (98-107) Carbon Dioxide Level 27 mmol/L (21-32) Anion Gap 4 (6-14) Blood Urea Nitrogen 35 mg/dL (8-26) Creatinine 1.7 mg/dL (0.7-1.3) Estimated GFR (Cockcroft-Gault) 40.0 BUN/Creatinine Ratio 21 (6-20) Glucose Level 106 mg/dL (70-99) Calcium Level 7.6 mg/dL (8.5-10.1) Phosphorus Level 4.0 mg/dL (2.6-4.7) Magnesium Level 2.7 mg/dL (1.8-2.4) Total Bilirubin 0.9 mg/dL (0.2-1.0) Aspartate Amino Transf (AST/SGOT) 25 U/L (15-37) Alanine Aminotransferase (ALT/SGPT) 28 U/L (16-63) Alkaline Phosphatase 64 U/L (46-116) Lactate Dehydrogenase 353 U/L (85-227) Total Protein 7.3 g/dL (6.4-8.2) Albumin 2.9 g/dL (3.4-5.0) Albumin/Globulin Ratio 0.7 (1.0-1.7) Review of Systems Constitutional: yes: malaise, weakness, alert, oriented Ears/Nose/Throat: Yes: no symptom reported Pulmonary: Yes no symptom reported Cardiovascular: Yes no symptom reported Gastrointestional: Yes: no symptom reported Genitourinary: Yes: no symptom reported Musculoskeletal: Yes: no symptom reported Psychiatric/Neurological: Yes: no symptom reported Endocrine: Yes: no symptom reported Physical Exam General Appearance: no apparent distress Skin: warm Respiratory: bilateral CTA Heart: S1S2 Abdomen: soft, bowel sounds present Genitourinary: bladder flat Extremities: pulses present Neurology: alert, oriented, follow commands Musculoskeletal: Osteoarthritis Assessment Assessment IMP CKD STAGE 3 - STABLE WITH CR OF 1.7 PULM HTN WITH SOB HEMOPTYSIS RESOLVED ITP LYMPHOPROLIFERATIVE DZ AIHM ANEMIA PLAN ON PREDNISONE AND IVIG UA NEG FOR NEPHRITIS CONT WITH IVF NS LABS IN AM MANSFIELD,FAYE S MD Dec 23, 2016 10:58
[2016-12-23 11:00] VITALS: BP 136/71
--- NOTE | 2016-12-23 11:58 | PDOC ---
PULMONARY PROGRESS NOTES Subjective PT WITH NO HEMOPTYSIS feels better Vitals Vital Signs Date Time Temp Pulse Resp B/P (MAP) Pulse Ox O2 Delivery O2 Flow Rate FiO2 12/23/16 08:00 Room Air 12/23/16 07:00 96.6 79 20 128/63 (84) 94 96.6 ROS: No Nausea, No Chest Pain, No Abdominal Pain, No Increase Cough General: Alert, No acute distress Lungs: Clear Cardiovascular: S1, S2 Abdomen: Soft, Non-tender Neuro Exam: Alert Extremities: Other (echymosis upper extremity) Skin: Warm Labs Laboratory Tests Test 12/21/16 13:20 12/22/16 04:44 12/23/16 05:45 Urine Collection Type Unknown Urine Color Yellow Urine Clarity Clear Urine pH 6.0 Urine Specific [place] 1.015 Urine Protein Negative mg/dL (NEG-TRACE) Urine Glucose (UA) Negative mg/dL (NEG) Urine Ketones (Stick) Negative mg/dL (NEG) Urine Blood Negative (NEG) Urine Nitrite Negative (NEG) Urine Bilirubin Negative (NEG) Urine Urobilinogen Dipstick 0.2 mg/dL (0.2 mg/dL) Urine Leukocyte Esterase Negative (NEG) Urine RBC 0 /HPF (0-2) Urine WBC 0 /HPF (0-4) Urine Squamous Epithelial Cells Occ /LPF Urine Bacteria 0 /HPF (0-FEW) Urine Mucus Slight /LPF White Blood Count 37.5 x10^3/uL (4.0-11.0) 48.1 x10^3/uL (4.0-11.0) Red Blood Count 2.08 x10^6/uL (4.30-5.70) 2.43 x10^6/uL (4.30-5.70) Hemoglobin 7.0 g/dL (13.0-17.5) 8.2 g/dL (13.0-17.5) Hematocrit 22.7 % (39.0-53.0) 26.5 % (39.0-53.0) Mean Corpuscular Volume 109 fL (79-100) 109 fL (79-100) Mean Corpuscular Hemoglobin 34 pg (25-35) 34 pg (25-35) Mean Corpuscular Hemoglobin Concent 31 g/dL (31-37) 31 g/dL (31-37) Red Cell Distribution Width 16.0 % (11.5-14.5) 15.7 % (11.5-14.5) Platelet Count 22 x10^3/uL (140-400) 27 x10^3/uL (140-400) Reticulocyte Count (auto) 5.6 % (0.5-2.5) 5.2 % (0.5-2.5) Sodium Level 140 mmol/L (136-145) 141 mmol/L (136-145) Potassium Level 4.2 mmol/L (3.5-5.1) 4.4 mmol/L (3.5-5.1) Chloride Level 108 mmol/L (98-107) 110 mmol/L (98-107) Carbon Dioxide Level 26 mmol/L (21-32) 27 mmol/L (21-32) Anion Gap 6 (6-14) 4 (6-14) Blood Urea Nitrogen 38 mg/dL (8-26) 35 mg/dL (8-26) Creatinine 1.6 mg/dL (0.7-1.3) 1.7 mg/dL (0.7-1.3) Estimated GFR (Cockcroft-Gault) 42.9 40.0 Glucose Level 131 mg/dL (70-99) 106 mg/dL (70-99) Calcium Level 7.2 mg/dL (8.5-10.1) 7.6 mg/dL (8.5-10.1) Phosphorus Level 4.8 mg/dL (2.6-4.7) 4.0 mg/dL (2.6-4.7) Magnesium Level 2.7 mg/dL (1.8-2.4) 2.7 mg/dL (1.8-2.4) Lactate Dehydrogenase 349 U/L (85-227) 353 U/L (85-227) Albumin 2.7 g/dL (3.4-5.0) 2.9 g/dL (3.4-5.0) Neutrophils (%) (Auto) 12 % (31-73) Lymphocytes (%) (Auto) 87 % (24-48) Monocytes (%) (Auto) 2 % (0-9) Eosinophils (%) (Auto) 0 % (0-3) Basophils (%) (Auto) 0 % (0-3) Neutrophils # (Auto) 5.6 x10^3uL (1.8-7.7) Lymphocytes # (Auto) 41.6 x10^3/uL (1.0-4.8) Monocytes # (Auto) 0.7 x10^3/uL (0.0-1.1) Eosinophils # (Auto) 0.0 x10^3/uL (0.0-0.7) Basophils # (Auto) 0.1 x10^3/uL (0.0-0.2) Segmented Neutrophils % 15 % (35-66) Lymphocytes % 85 % (24-48) Platelet Estimate Decreased (ADEQUATE) Basophilic Stippling Present Anisocytosis Present Macrocytosis Present BUN/Creatinine Ratio 21 (6-20) Total Bilirubin 0.9 mg/dL (0.2-1.0) Aspartate Amino Transf (AST/SGOT) 25 U/L (15-37) Alanine Aminotransferase (ALT/SGPT) 28 U/L (16-63) Alkaline Phosphatase 64 U/L (46-116) Total Protein 7.3 g/dL (6.4-8.2) Albumin/Globulin Ratio 0.7 (1.0-1.7) Laboratory Tests Test 12/23/16 05:45 White Blood Count 48.1 x10^3/uL (4.0-11.0) Red Blood Count 2.43 x10^6/uL (4.30-5.70) Hemoglobin 8.2 g/dL (13.0-17.5) Hematocrit 26.5 % (39.0-53.0) Mean Corpuscular Volume 109 fL (79-100) Mean Corpuscular Hemoglobin 34 pg (25-35) Mean Corpuscular Hemoglobin Concent 31 g/dL (31-37) Red Cell Distribution Width 15.7 % (11.5-14.5) Platelet Count 27 x10^3/uL (140-400) Neutrophils (%) (Auto) 12 % (31-73) Lymphocytes (%) (Auto) 87 % (24-48) Monocytes (%) (Auto) 2 % (0-9) Eosinophils (%) (Auto) 0 % (0-3) Basophils (%) (Auto) 0 % (0-3) Neutrophils # (Auto) 5.6 x10^3uL (1.8-7.7) Lymphocytes # (Auto) 41.6 x10^3/uL (1.0-4.8) Monocytes # (Auto) 0.7 x10^3/uL (0.0-1.1) Eosinophils # (Auto) 0.0 x10^3/uL (0.0-0.7) Basophils # (Auto) 0.1 x10^3/uL (0.0-0.2) Segmented Neutrophils % 15 % (35-66) Lymphocytes % 85 % (24-48) Platelet Estimate Decreased (ADEQUATE) Basophilic Stippling Present Anisocytosis Present Macrocytosis Present Reticulocyte Count (auto) 5.2 % (0.5-2.5) Sodium Level 141 mmol/L (136-145) Potassium Level 4.4 mmol/L (3.5-5.1) Chloride Level 110 mmol/L (98-107) Carbon Dioxide Level 27 mmol/L (21-32) Anion Gap 4 (6-14) Blood Urea Nitrogen 35 mg/dL (8-26) Creatinine 1.7 mg/dL (0.7-1.3) Estimated GFR (Cockcroft-Gault) 40.0 BUN/Creatinine Ratio 21 (6-20) Glucose Level 106 mg/dL (70-99) Calcium Level 7.6 mg/dL (8.5-10.1) Phosphorus Level 4.0 mg/dL (2.6-4.7) Magnesium Level 2.7 mg/dL (1.8-2.4) Total Bilirubin 0.9 mg/dL (0.2-1.0) Aspartate Amino Transf (AST/SGOT) 25 U/L (15-37) Alanine Aminotransferase (ALT/SGPT) 28 U/L (16-63) Alkaline Phosphatase 64 U/L (46-116) Lactate Dehydrogenase 353 U/L (85-227) Total Protein 7.3 g/dL (6.4-8.2) Albumin 2.9 g/dL (3.4-5.0) Albumin/Globulin Ratio 0.7 (1.0-1.7) Medications Active Scripts Medications Dose Route/Sig Max Daily Dose Days Date Category Colcrys (Colchicine) 0.6 Mg Tablet 1 Tab PO DAILY 04/30/14 Reported Lisinopril-Hctz 20-25 Mg Tab (Lisinopril/Hydrochlorothiazide) 1 Each Tablet 1 Tab PO DAILY 04/30/14 Reported Celecoxib 200 Mg Capsule 200 Mg PO PRN PRN 04/30/14 Reported Lortab 7.5-325 mg Tablet (Hydrocodone/Acetaminophen) 1 Each Tablet 1 Tab PO PRN Q6HRS PRN 01/02/14 Reported Levothyroxine Sodium 150 Mcg Tablet 1 Tab PO DAILY 01/02/14 Reported Impression . 1. Dyspnea, multifactorial secondary to anemia, moderate secondary pulmonary hypertension (PA 61), morbid obesity and deconditioning. 2. underlying CLL. 3. ITP 4. Autoimmune hemolytic anemia. 5. Chronic diastolic heart failure. 6. Hypothyroidism. 7. Morbid obesity. 8. Osteoarthritis. 9. Hyperlipidemia. 10. Chronic renal insufficiency. 11. Positive D-dimer. DVT is seen involving the right popliteal vein and right superficial femoral vein. Low probability study. V/Q Plan . 1. Platelets slowly improving. will hold off on anticoagulation, may benefit from IVC IN FUTURE IF NEEDED. 2. Oxygen supplementation as needed. 3. nephrology recommendations 4. Outpatient polysomnogram. 5. IVIG per hematology/ transfusion prn 6. High dose steroids d/w , clinically improving BERONICA ALLEN MD Dec 23, 2016 11:58
[2016-12-23] MEDS: IV NORMAL SALINE 1000ML BAG 1,000 ML IV SCH (14:03)
[2016-12-23 15:00] VITALS: BP 132/68
--- NOTE | 2016-12-23 16:50 | PDOC ---
PROGRESS NOTES Subjective Subjective HPI - ITP - Severe thrombocytopenia with a platelet count of less than 3 on 11/24. On a manual count, platelet count result was 1. ROS - no bleed Objective Objective Vital Signs Date Time Temp Pulse Resp B/P (MAP) Pulse Ox O2 Delivery O2 Flow Rate FiO2 12/23/16 11:00 96.4 67 20 136/71 (92) 97 Room Air 96.4 Intake and Output 12/23/16 07:00 Intake Total 3050 ml Output Total 1725 ml Balance 1325 ml Intake Oral 1050 ml IV Total 2000 ml Output Urine Total 1725 ml # Voids 1 # Bowel Movements 1 Physical Exam Heart: Normal S1, Normal S2 General: Alert, Oriented X3 Lungs: Clear to auscultation Psych/Mental Status: Mental status NL Assessment Assessment IMPRESSION AND PLAN: 1. ITP - Severe thrombocytopenia with a platelet count of less than 3 on . On a manual count, platelet count result was 1. Started prednisone 120 mg p.o. daily from 12/18/2016. IVIG on 12/19/16 with second dose 12/20/16 - 1 gm/kg. Overall, plts a little better at 27 on 12/23/16, 16 on 12/21/16 and 22 on and tolerating lower hemoglobin. For now can observe and transfuse if needed based on symptoms and would need a blood warmer Appears to have underlying lymphoproliferative d/o. Would need a blood warmer if transfusion needed. Phenotyping recommended by blood bank. 2. Autoimmune hemolytic anemia. Hemoglobin 8.1 on 12/18/2016 with an MCV of 110. Normal B12 level. Reticulocyte count is elevated at 7.6 and a total bilirubin 3.6, direct bilirubin 0.6. Monitor hemoglobin. Hb 6.8 and retic better at 5.7 on 12/21/16 Hb 7.0 on 12/22/16 Hb 8.2 on 12/23/16 Also added folic acid 1 mg daily 12/22/16. 3. Leukocytosis with elevated lymphocytes consistent with CLL. He also has evidence of lymphadenopathy in the cervical region and right axillary and left axillary region. s/p Bone marrow bx 12/21/16. 4. Renal failure with a creatinine of 1.8. Review of the old records indicates that he has chronically elevated creatinine level. 5. Fatigue secondary to anemia. Continue to monitor. 6. Lymphadenopathy due to suspected CLL. 7. DVT RLE on 12/18/16 - Has positive doppler, but no acute symptoms. Has prior history so may be chronic clot. In this situation would not anticoagulate given low plts and bleeding risk. Filter could be an option when counts improve. I d/w DR Sundar Gamez Comment Review of Relevant I have reviewed the following items ana maría (where applicable) has been applied. Labs Laboratory Tests Test 12/22/16 04:44 12/23/16 05:45 White Blood Count 37.5 x10^3/uL (4.0-11.0) 48.1 x10^3/uL (4.0-11.0) Red Blood Count 2.08 x10^6/uL (4.30-5.70) 2.43 x10^6/uL (4.30-5.70) Hemoglobin 7.0 g/dL (13.0-17.5) 8.2 g/dL (13.0-17.5) Hematocrit 22.7 % (39.0-53.0) 26.5 % (39.0-53.0) Mean Corpuscular Volume 109 fL (79-100) 109 fL (79-100) Mean Corpuscular Hemoglobin 34 pg (25-35) 34 pg (25-35) Mean Corpuscular Hemoglobin Concent 31 g/dL (31-37) 31 g/dL (31-37) Red Cell Distribution Width 16.0 % (11.5-14.5) 15.7 % (11.5-14.5) Platelet Count 22 x10^3/uL (140-400) 27 x10^3/uL (140-400) Reticulocyte Count (auto) 5.6 % (0.5-2.5) 5.2 % (0.5-2.5) Sodium Level 140 mmol/L (136-145) 141 mmol/L (136-145) Potassium Level 4.2 mmol/L (3.5-5.1) 4.4 mmol/L (3.5-5.1) Chloride Level 108 mmol/L (98-107) 110 mmol/L (98-107) Carbon Dioxide Level 26 mmol/L (21-32) 27 mmol/L (21-32) Anion Gap 6 (6-14) 4 (6-14) Blood Urea Nitrogen 38 mg/dL (8-26) 35 mg/dL (8-26) Creatinine 1.6 mg/dL (0.7-1.3) 1.7 mg/dL (0.7-1.3) Estimated GFR (Cockcroft-Gault) 42.9 40.0 Glucose Level 131 mg/dL (70-99) 106 mg/dL (70-99) Calcium Level 7.2 mg/dL (8.5-10.1) 7.6 mg/dL (8.5-10.1) Phosphorus Level 4.8 mg/dL (2.6-4.7) 4.0 mg/dL (2.6-4.7) Magnesium Level 2.7 mg/dL (1.8-2.4) 2.7 mg/dL (1.8-2.4) Lactate Dehydrogenase 349 U/L (85-227) 353 U/L (85-227) Albumin 2.7 g/dL (3.4-5.0) 2.9 g/dL (3.4-5.0) Neutrophils (%) (Auto) 12 % (31-73) Lymphocytes (%) (Auto) 87 % (24-48) Monocytes (%) (Auto) 2 % (0-9) Eosinophils (%) (Auto) 0 % (0-3) Basophils (%) (Auto) 0 % (0-3) Neutrophils # (Auto) 5.6 x10^3uL (1.8-7.7) Lymphocytes # (Auto) 41.6 x10^3/uL (1.0-4.8) Monocytes # (Auto) 0.7 x10^3/uL (0.0-1.1) Eosinophils # (Auto) 0.0 x10^3/uL (0.0-0.7) Basophils # (Auto) 0.1 x10^3/uL (0.0-0.2) Segmented Neutrophils % 15 % (35-66) Lymphocytes % 85 % (24-48) Platelet Estimate Decreased (ADEQUATE) Basophilic Stippling Present Anisocytosis Present Macrocytosis Present BUN/Creatinine Ratio 21 (6-20) Total Bilirubin 0.9 mg/dL (0.2-1.0) Aspartate Amino Transf (AST/SGOT) 25 U/L (15-37) Alanine Aminotransferase (ALT/SGPT) 28 U/L (16-63) Alkaline Phosphatase 64 U/L (46-116) Total Protein 7.3 g/dL (6.4-8.2) Albumin/Globulin Ratio 0.7 (1.0-1.7) Laboratory Tests Test 12/23/16 05:45 White Blood Count 48.1 x10^3/uL (4.0-11.0) Red Blood Count 2.43 x10^6/uL (4.30-5.70) Hemoglobin 8.2 g/dL (13.0-17.5) Hematocrit 26.5 % (39.0-53.0) Mean Corpuscular Volume 109 fL (79-100) Mean Corpuscular Hemoglobin 34 pg (25-35) Mean Corpuscular Hemoglobin Concent 31 g/dL (31-37) Red Cell Distribution Width 15.7 % (11.5-14.5) Platelet Count 27 x10^3/uL (140-400) Neutrophils (%) (Auto) 12 % (31-73) Lymphocytes (%) (Auto) 87 % (24-48) Monocytes (%) (Auto) 2 % (0-9) Eosinophils (%) (Auto) 0 % (0-3) Basophils (%) (Auto) 0 % (0-3) Neutrophils # (Auto) 5.6 x10^3uL (1.8-7.7) Lymphocytes # (Auto) 41.6 x10^3/uL (1.0-4.8) Monocytes # (Auto) 0.7 x10^3/uL (0.0-1.1) Eosinophils # (Auto) 0.0 x10^3/uL (0.0-0.7) Basophils # (Auto) 0.1 x10^3/uL (0.0-0.2) Segmented Neutrophils % 15 % (35-66) Lymphocytes % 85 % (24-48) Platelet Estimate Decreased (ADEQUATE) Basophilic Stippling Present Anisocytosis Present Macrocytosis Present Reticulocyte Count (auto) 5.2 % (0.5-2.5) Sodium Level 141 mmol/L (136-145) Potassium Level 4.4 mmol/L (3.5-5.1) Chloride Level 110 mmol/L (98-107) Carbon Dioxide Level 27 mmol/L (21-32) Anion Gap 4 (6-14) Blood Urea Nitrogen 35 mg/dL (8-26) Creatinine 1.7 mg/dL (0.7-1.3) Estimated GFR (Cockcroft-Gault) 40.0 BUN/Creatinine Ratio 21 (6-20) Glucose Level 106 mg/dL (70-99) Calcium Level 7.6 mg/dL (8.5-10.1) Phosphorus Level 4.0 mg/dL (2.6-4.7) Magnesium Level 2.7 mg/dL (1.8-2.4) Total Bilirubin 0.9 mg/dL (0.2-1.0) Aspartate Amino Transf (AST/SGOT) 25 U/L (15-37) Alanine Aminotransferase (ALT/SGPT) 28 U/L (16-63) Alkaline Phosphatase 64 U/L (46-116) Lactate Dehydrogenase 353 U/L (85-227) Total Protein 7.3 g/dL (6.4-8.2) Albumin 2.9 g/dL (3.4-5.0) Albumin/Globulin Ratio 0.7 (1.0-1.7) Medications Current Medications Allopurinol (Zyloprim) 300 mg DAILY PO Last administered on 12/23/16 08:13; Start 12/19/16 at 09:00 Levothyroxine Sodium (Synthroid) 150 mcg DAILY07 PO Last administered on 05:16; Start 12/19/16 at 07:00 Cyanocobalamin (Vitamin B-12) 1,000 mcg 1X ONCE SQ Last administered on 16:16; Start 12/18/16 at 13:30; Stop 12/18/16 at 13:31; Status DC Prednisone (Prednisone) 120 mg DAILY PO Last administered on 12/23/16 08:13; Start 12/18/16 at 15:30 Magnesium Sulfate/ Dextrose 50 ml @ 25 mls/hr PRN DAILY PRN IV for Mag < 1.7 on am labs; Start 12/18/16 at 15:15 Sodium Chloride 1,000 ml @ 75 mls/hr [id number] IV Last administered on 14:03; Start 12/18/16 at 15:30 Lorazepam (Ativan) 0.5 mg Q8HRS PRN IV ANXIETY / AGITATION Last administered on 12/23/16 06:20; Start 12/18/16 at 16:45 Immune Globulin 60 gm/Immune Globulin 40 gm/ Miscellaneous 1,001 ml @ 75 mls/ hr 1X ONCE IV Last administered on 12/19/16 12:03; Start 12/19/16 at 09:00 ; Stop 12/19/16 at 22:20; Status DC Immune Globulin 10 gm/Immune Globulin 120 gm/ Miscellaneous 1,301 ml @ 75 mls/ hr 1X ONCE IV Last administered on 12/20/16 11:00; Start 12/20/16 at 11:00 ; Stop 12/21/16 at 04:20; Status DC Levothyroxine Sodium (Synthroid) 150 mcg DAILY PO ; Start 12/20/16 at 09:00; Status UNV Lidocaine/Sodium Bicarbonate (Buffered Lidocaine 1%) 20 ml STK-MED ONCE IJ ; Start 12/21/16 at 09:56; Stop 12/21/16 at 09:57; Status DC Fentanyl Citrate (Fentanyl 2ml Vial) 100 mcg STK-MED ONCE .ROUTE ; Start at 10:16; Stop 12/21/16 at 10:17; Status DC Midazolam HCl (Versed) 5 mg STK-MED ONCE .ROUTE ; Start 12/21/16 at 10:16; Stop 12/21/16 at 10:17; Status DC Lidocaine/Sodium Bicarbonate (Buffered Lidocaine 1%) 20 ml 1X ONCE IJ Last administered on 12/21/16 10:33; Start 12/21/16 at 10:30; Stop 12/21/16 at 10 :31; Status DC Midazolam HCl (Versed) 5 mg 1X ONCE IV Last administered on 12/21/16 10:33; Start 12/21/16 at 10:30; Stop 12/21/16 at 10:31; Status DC Fentanyl Citrate (Fentanyl 2ml Vial) 100 mcg 1X ONCE IV Last administered on 12/21/16 10:34; Start 12/21/16 at 10:30; Stop 12/21/16 at 10:31; Status DC Pantoprazole Sodium (Protonix) 40 mg DAILYAC PO Last administered on 11/15/ 17at 05:16; Start 12/21/16 at 12:00 Folic Acid (Folic Acid) 1 mg DAILY PO Last administered on 12/23/16t 08:12; Start 12/22/16 at 14:00 Active Scripts Active Reported Colcrys (Colchicine) 0.6 Mg Tablet 1 Tab PO DAILY Lisinopril-Hctz 20-25 Mg Tab (Lisinopril/Hydrochlorothiazide) 1 Each Tablet 1 Tab PO DAILY Celecoxib 200 Mg Capsule 200 Mg PO PRN PRN Lortab 7.5-325 mg Tablet (Hydrocodone/Acetaminophen) 1 Each Tablet 1 Tab PO PRN Q6HRS PRN Levothyroxine Sodium 150 Mcg Tablet 1 Tab PO DAILY Vitals/I & O Vital Sign - Last 24 Hours 12/22/16 12/22/16 12/22/16 12/23/16 19:00 20:09 23:00 03:00 Temp 98.1 97.5 97.8 98.1 97.5 97.8 Pulse 68 65 68 Resp 18 18 22 B/P (MAP) 141/62 (88) 120/61 (80) 129/66 (87) Pulse Ox 96 95 96 O2 Delivery Room Air Room Air Room Air Room Air 12/23/16 12/23/16 12/23/16 07:00 08:00 11:00 Temp 96.6 96.4 96.6 96.4 Pulse 79 67 Resp 20 20 B/P (MAP) 128/63 (84) 136/71 (92) Pulse Ox 94 97 O2 Delivery Room Air Room Air Room Air Intake and Output 12/22/16 12/22/16 12/23/16 15:00 23:00 07:00 Intake Total 1360 ml 1180 ml 510 ml Output Total 775 ml 350 ml 600 ml Balance 585 ml 830 ml -90 ml PRINCE HANDLEY MD Dec 23, 2016 16:50
[2016-12-23 19:00] VITALS: BP 123/63
[2016-12-23 23:00] VITALS: BP 139/77
[2016-12-24] MEDS: IV NORMAL SALINE 1000ML BAG 1,000 ML IV SCH (02:46)
[2016-12-24 03:00] VITALS: BP 141/79
[2016-12-24] MEDS: LEVOTHYROXINE 150 MCG TABLET PO SCH (04:53)
[2016-12-24] MEDS: PANTOPRAZOLE 40 MG TABLET.DR. PO SCH (04:53)
[2016-12-24 05:39] LABS: HEMATOCRIT 27.2 % (39.0-53.0); HEMOGLOBIN 8.4 g/dL (13.0-17.5); RED BLOOD COUNT 2.51 x10^6/uL (4.30-5.70); RED CELL DISTRIBUTION WIDTH 15.3 % (11.5-14.5)
[2016-12-24 06:02] LABS: WHITE BLOOD COUNT 46.1 x10^3/uL (4.0-11.0)
[2016-12-24 06:04] LABS: CALCIUM 7.3 mg/dL (8.5-10.1); CREATININE 1.4 mg/dL (0.7-1.3); GFR 50.1; POTASSIUM 4.3 mmol/L (3.5-5.1)
[2016-12-24 07:59] VITALS: BP 126/76
--- NOTE | 2016-12-24 08:35 | DISCH ---
DISCHARGE INSTRUCTIONS Condition on Discharge Condition on Discharge: Stable Activity After Discharge Activity Instructions for Disc: No restrictions Diet after Discharge Diet after Discharge: Low Sodium 4 gm Follow-Up Follow up with: JOSIAH Veras MD Dec 24, 2016 08:35
--- NOTE | 2016-12-24 08:41 | PDOC ---
Provider Note Provider Note [id number] JOISAH CEBALLOS MD Dec 24, 2016 08:41
[2016-12-24] MEDS: FOLIC ACID 1 MG TABLET. PO SCH (08:59)
[2016-12-24] MEDS: ALLOPURINOL 300 MG TABLET. PO SCH (08:59)
[2016-12-24] MEDS: predniSONE 20 MG TABLET PO SCH (08:59)
--- NOTE | 2016-12-24 10:20 | PDOC ---
PROGRESS NOTES Subjective Subjective HPI - f/u of ITP, anemia ROS - no bleed Objective Objective Vital Signs Date Time Temp Pulse Resp B/P (MAP) Pulse Ox O2 Delivery O2 Flow Rate FiO2 12/24/16 07:59 97.7 70 21 126/76 (93) 97 Room Air 97.7 Intake and Output 12/24/16 07:00 Intake Total 3250 ml Output Total 400 ml Balance 2850 ml Intake Oral 1250 ml IV Total 2000 ml Output Urine Total 400 ml Physical Exam Heart: Normal S1, Normal S2 General: Alert, Oriented X3, No acute distress Lungs: Clear to auscultation Neuro: Normal speech Psych/Mental Status: Mental status NL Assessment Assessment IMPRESSION AND PLAN: 1. ITP - Severe thrombocytopenia with a platelet count of less than 3 on . On a manual count, platelet count result was 1. Started prednisone 120 mg p.o. daily from 12/18/2016. IVIG on 12/19/16 with second dose 12/20/16 - 1 gm/kg. Overall, plts a little better at 27 on 12/23/16, 16 on 12/21/16 and 22 on and tolerating lower hemoglobin. For now can observe and transfuse if needed based on symptoms and would need a blood warmer Plt 24 on 12/24/16 Appears to have underlying lymphoproliferative d/o. Would need a blood warmer if transfusion needed. Phenotyping recommended by blood bank. 2. Autoimmune hemolytic anemia. Hemoglobin 8.1 on 12/18/2016 with an MCV of 110. Normal B12 level. Reticulocyte count is elevated at 7.6 and a total bilirubin 3.6, direct bilirubin 0.6. Monitor hemoglobin. Hb 6.8 and retic better at 5.7 on 12/21/16 Hb 7.0 on 12/22/16 Hb 8.2 on 12/23/16 Also added folic acid 1 mg daily 12/22/16. Hb 8.4 on 12/24/16 3. Leukocytosis with elevated lymphocytes consistent with CLL. He also has evidence of lymphadenopathy in the cervical region and right axillary and left axillary region. s/p Bone marrow bx 12/21/16. 4. Renal failure with a creatinine of 1.8. Review of the old records indicates that he has chronically elevated creatinine level. 5. Fatigue secondary to anemia. Continue to monitor. 6. Lymphadenopathy due to suspected CLL. 7. DVT RLE on 12/18/16 - Has positive doppler, but no acute symptoms. Has prior history so may be chronic clot. In this situation would not anticoagulate given low plts and bleeding risk. Filter could be an option when counts improve. I d/w DR Sundar Gamez Comment Review of Relevant I have reviewed the following items ana maría (where applicable) has been applied. Labs Laboratory Tests Test 12/23/16 05:45 12/24/16 05:00 White Blood Count 48.1 x10^3/uL (4.0-11.0) 46.1 x10^3/uL (4.0-11.0) Red Blood Count 2.43 x10^6/uL (4.30-5.70) 2.51 x10^6/uL (4.30-5.70) Hemoglobin 8.2 g/dL (13.0-17.5) 8.4 g/dL (13.0-17.5) Hematocrit 26.5 % (39.0-53.0) 27.2 % (39.0-53.0) Mean Corpuscular Volume 109 fL (79-100) 109 fL (79-100) Mean Corpuscular Hemoglobin 34 pg (25-35) 34 pg (25-35) Mean Corpuscular Hemoglobin Concent 31 g/dL (31-37) 31 g/dL (31-37) Red Cell Distribution Width 15.7 % (11.5-14.5) 15.3 % (11.5-14.5) Platelet Count 27 x10^3/uL (140-400) 24 x10^3/uL (140-400) Neutrophils (%) (Auto) 12 % (31-73) Lymphocytes (%) (Auto) 87 % (24-48) Monocytes (%) (Auto) 2 % (0-9) Eosinophils (%) (Auto) 0 % (0-3) Basophils (%) (Auto) 0 % (0-3) Neutrophils # (Auto) 5.6 x10^3uL (1.8-7.7) Lymphocytes # (Auto) 41.6 x10^3/uL (1.0-4.8) Monocytes # (Auto) 0.7 x10^3/uL (0.0-1.1) Eosinophils # (Auto) 0.0 x10^3/uL (0.0-0.7) Basophils # (Auto) 0.1 x10^3/uL (0.0-0.2) Segmented Neutrophils % 15 % (35-66) Lymphocytes % 85 % (24-48) Platelet Estimate Decreased (ADEQUATE) Basophilic Stippling Present Anisocytosis Present Macrocytosis Present Reticulocyte Count (auto) 5.2 % (0.5-2.5) Sodium Level 141 mmol/L (136-145) 141 mmol/L (136-145) Potassium Level 4.4 mmol/L (3.5-5.1) 4.3 mmol/L (3.5-5.1) Chloride Level 110 mmol/L (98-107) 110 mmol/L (98-107) Carbon Dioxide Level 27 mmol/L (21-32) 25 mmol/L (21-32) Anion Gap 4 (6-14) 6 (6-14) Blood Urea Nitrogen 35 mg/dL (8-26) 32 mg/dL (8-26) Creatinine 1.7 mg/dL (0.7-1.3) 1.4 mg/dL (0.7-1.3) Estimated GFR (Cockcroft-Gault) 40.0 50.1 BUN/Creatinine Ratio 21 (6-20) Glucose Level 106 mg/dL (70-99) 113 mg/dL (70-99) Calcium Level 7.6 mg/dL (8.5-10.1) 7.3 mg/dL (8.5-10.1) Phosphorus Level 4.0 mg/dL (2.6-4.7) Magnesium Level 2.7 mg/dL (1.8-2.4) Total Bilirubin 0.9 mg/dL (0.2-1.0) Aspartate Amino Transf (AST/SGOT) 25 U/L (15-37) Alanine Aminotransferase (ALT/SGPT) 28 U/L (16-63) Alkaline Phosphatase 64 U/L (46-116) Lactate Dehydrogenase 353 U/L (85-227) Total Protein 7.3 g/dL (6.4-8.2) Albumin 2.9 g/dL (3.4-5.0) Albumin/Globulin Ratio 0.7 (1.0-1.7) Laboratory Tests Test 12/24/16 05:00 White Blood Count 46.1 x10^3/uL (4.0-11.0) Red Blood Count 2.51 x10^6/uL (4.30-5.70) Hemoglobin 8.4 g/dL (13.0-17.5) Hematocrit 27.2 % (39.0-53.0) Mean Corpuscular Volume 109 fL (79-100) Mean Corpuscular Hemoglobin 34 pg (25-35) Mean Corpuscular Hemoglobin Concent 31 g/dL (31-37) Red Cell Distribution Width 15.3 % (11.5-14.5) Platelet Count 24 x10^3/uL (140-400) Sodium Level 141 mmol/L (136-145) Potassium Level 4.3 mmol/L (3.5-5.1) Chloride Level 110 mmol/L (98-107) Carbon Dioxide Level 25 mmol/L (21-32) Anion Gap 6 (6-14) Blood Urea Nitrogen 32 mg/dL (8-26) Creatinine 1.4 mg/dL (0.7-1.3) Estimated GFR (Cockcroft-Gault) 50.1 Glucose Level 113 mg/dL (70-99) Calcium Level 7.3 mg/dL (8.5-10.1) Medications Current Medications Allopurinol (Zyloprim) 300 mg DAILY PO Last administered on 12/24/16 08:59; Start 12/19/16 at 09:00 Levothyroxine Sodium (Synthroid) 150 mcg DAILY07 PO Last administered on 04:53; Start 12/19/16 at 07:00 Cyanocobalamin (Vitamin B-12) 1,000 mcg 1X ONCE SQ Last administered on 16:16; Start 12/18/16 at 13:30; Stop 12/18/16 at 13:31; Status DC Prednisone (Prednisone) 120 mg DAILY PO Last administered on 12/24/16 08:59; Start 12/18/16 at 15:30 Magnesium Sulfate/ Dextrose 50 ml @ 25 mls/hr PRN DAILY PRN IV for Mag < 1.7 on am labs; Start 12/18/16 at 15:15 Sodium Chloride 1,000 ml @ 75 mls/hr [id number] IV Last administered on 02:46; Start 12/18/16 at 15:30 Lorazepam (Ativan) 0.5 mg Q8HRS PRN IV ANXIETY / AGITATION Last administered on 12/23/16 06:20; Start 12/18/16 at 16:45 Immune Globulin 60 gm/Immune Globulin 40 gm/ Miscellaneous 1,001 ml @ 75 mls/ hr 1X ONCE IV Last administered on 12/19/16 12:03; Start 12/19/16 at 09:00 ; Stop 12/19/16 at 22:20; Status DC Immune Globulin 10 gm/Immune Globulin 120 gm/ Miscellaneous 1,301 ml @ 75 mls/ hr 1X ONCE IV Last administered on 12/20/16 11:00; Start 12/20/16 at 11:00 ; Stop 12/21/16 at 04:20; Status DC Levothyroxine Sodium (Synthroid) 150 mcg DAILY PO ; Start 12/20/16 at 09:00; Status UNV Lidocaine/Sodium Bicarbonate (Buffered Lidocaine 1%) 20 ml STK-MED ONCE IJ ; Start 12/21/16 at 09:56; Stop 12/21/16 at 09:57; Status DC Fentanyl Citrate (Fentanyl 2ml Vial) 100 mcg STK-MED ONCE .ROUTE ; Start at 10:16; Stop 12/21/16 at 10:17; Status DC Midazolam HCl (Versed) 5 mg STK-MED ONCE .ROUTE ; Start 12/21/16 at 10:16; Stop 12/21/16 at 10:17; Status DC Lidocaine/Sodium Bicarbonate (Buffered Lidocaine 1%) 20 ml 1X ONCE IJ Last administered on 12/21/16 10:33; Start 12/21/16 at 10:30; Stop 12/21/16 at 10 :31; Status DC Midazolam HCl (Versed) 5 mg 1X ONCE IV Last administered on 12/21/16 10:33; Start 12/21/16 at 10:30; Stop 12/21/16 at 10:31; Status DC Fentanyl Citrate (Fentanyl 2ml Vial) 100 mcg 1X ONCE IV Last administered on 12/21/16 10:34; Start 12/21/16 at 10:30; Stop 12/21/16 at 10:31; Status DC Pantoprazole Sodium (Protonix) 40 mg DAILYAC PO Last administered on 04:53; Start 12/21/16 at 12:00 Folic Acid (Folic Acid) 1 mg DAILY PO Last administered on 12/24/16 08:59; Start 12/22/16 at 14:00 Active Scripts Active Reported Colcrys (Colchicine) 0.6 Mg Tablet 1 Tab PO DAILY Lisinopril-Hctz 20-25 Mg Tab (Lisinopril/Hydrochlorothiazide) 1 Each Tablet 1 Tab PO DAILY Celecoxib 200 Mg Capsule 200 Mg PO PRN PRN Lortab 7.5-325 mg Tablet (Hydrocodone/Acetaminophen) 1 Each Tablet 1 Tab PO PRN Q6HRS PRN Levothyroxine Sodium 150 Mcg Tablet 1 Tab PO DAILY Vitals/I & O Vital Sign - Last 24 Hours 12/23/16 12/23/16 12/23/16 12/23/16 11:00 15:00 19:00 19:46 Temp 96.4 97.5 97.4 96.4 97.5 97.4 Pulse 67 68 65 Resp 20 20 20 B/P (MAP) 136/71 (92) 132/68 (89) 123/63 (83) Pulse Ox 97 94 96 O2 Delivery Room Air Room Air Room Air Room Air 12/23/16 12/24/16 12/24/16 23:00 03:00 07:59 Temp 98.3 96.7 97.7 98.3 96.7 97.7 Pulse 73 71 70 Resp 20 20 21 B/P (MAP) 139/77 (97) 141/79 (99) 126/76 (93) Pulse Ox 94 95 97 O2 Delivery Room Air Room Air Room Air Intake and Output 12/23/16 12/23/16 12/24/16 15:00 23:00 07:00 Intake Total 1000 ml 350 ml 1900 ml Output Total 400 ml Balance 1000 ml 350 ml 1500 ml PRINCE HANDLEY MD Dec 24, 2016 10:20
[2016-12-24 11:13] VITALS: BP 139/68
--- NOTE | 2016-12-24 11:46 | PDOC ---
Renal-Progress Notes Subjective Notes Notes NONE History of Present Illness Hx of present illness STABLE Vitals Vitals Vital Signs Date Time Temp Pulse Resp B/P (MAP) Pulse Ox O2 Delivery O2 Flow Rate FiO2 12/24/16 11:13 97.3 71 20 139/68 (91) 93 Room Air 97.3 Weight Weight [ ] I.O. Intake and Output Intake and Output 12/24/16 07:00 Intake Total 3250 ml Output Total 400 ml Balance 2850 ml Intake Oral 1250 ml IV Total 2000 ml Output Urine Total 400 ml Labs Labs Laboratory Tests Test 12/24/16 05:00 White Blood Count 46.1 x10^3/uL (4.0-11.0) Red Blood Count 2.51 x10^6/uL (4.30-5.70) Hemoglobin 8.4 g/dL (13.0-17.5) Hematocrit 27.2 % (39.0-53.0) Mean Corpuscular Volume 109 fL (79-100) Mean Corpuscular Hemoglobin 34 pg (25-35) Mean Corpuscular Hemoglobin Concent 31 g/dL (31-37) Red Cell Distribution Width 15.3 % (11.5-14.5) Platelet Count 24 x10^3/uL (140-400) Sodium Level 141 mmol/L (136-145) Potassium Level 4.3 mmol/L (3.5-5.1) Chloride Level 110 mmol/L (98-107) Carbon Dioxide Level 25 mmol/L (21-32) Anion Gap 6 (6-14) Blood Urea Nitrogen 32 mg/dL (8-26) Creatinine 1.4 mg/dL (0.7-1.3) Estimated GFR (Cockcroft-Gault) 50.1 Glucose Level 113 mg/dL (70-99) Calcium Level 7.3 mg/dL (8.5-10.1) Review of Systems Constitutional: yes: malaise, weakness, alert, oriented Ears/Nose/Throat: Yes: no symptom reported Pulmonary: Yes no symptom reported Cardiovascular: Yes no symptom reported Gastrointestional: Yes: no symptom reported Genitourinary: Yes: no symptom reported Musculoskeletal: Yes: no symptom reported Psychiatric/Neurological: Yes: no symptom reported Endocrine: Yes: no symptom reported Physical Exam General Appearance: no apparent distress Skin: warm Respiratory: bilateral CTA Heart: S1S2 Abdomen: soft, bowel sounds present Genitourinary: bladder flat Extremities: pulses present Neurology: alert, oriented, follow commands Musculoskeletal: Osteoarthritis Assessment Assessment IMP CKD STAGE 3 - STABLE WITH CR OF 1.4 PULM HTN WITH SOB HEMOPTYSIS RESOLVED ITP LYMPHOPROLIFERATIVE DZ AIHM ANEMIA PLAN D/C PLANS NOTED WILL FOLLOW NEEDED FAYE MANSFIELD MD Dec 24, 2016 11:46
--- NOTE | 2016-12-24 14:50 | PDOC ---
Subjective: Subjective: Watery diarrhea twice daily since second day of admission. No abd pain, eating ok. No bleeding. Objective: Objective: RN called twice, pt anxious to DC, wanted to talk to me about diarrhea. Vital Signs: Vital Signs Date Time Temp Pulse Resp B/P (MAP) Pulse Ox O2 Delivery O2 Flow Rate FiO2 12/24/16 11:13 97.3 71 20 139/68 (91) 93 Room Air 97.3 Labs: Laboratory Tests Test 12/24/16 05:00 White Blood Count 46.1 x10^3/uL Red Blood Count 2.51 x10^6/uL Hemoglobin 8.4 g/dL Hematocrit 27.2 % Mean Corpuscular Volume 109 fL Mean Corpuscular Hemoglobin 34 pg Mean Corpuscular Hemoglobin Concent 31 g/dL Red Cell Distribution Width 15.3 % Platelet Count 24 x10^3/uL Sodium Level 141 mmol/L Potassium Level 4.3 mmol/L Chloride Level 110 mmol/L Carbon Dioxide Level 25 mmol/L Anion Gap 6 Blood Urea Nitrogen 32 mg/dL Creatinine 1.4 mg/dL Estimated GFR (Cockcroft-Gault) 50.1 Glucose Level 113 mg/dL Calcium Level 7.3 mg/dL PE: GEN: NAD, up to chair LUNGS: CTAB HEART: RRR ABD: NABS, S/ND/NT NEURO/PSYCH: A & O 3 A/P: ITP/AIHA/CLL Diarrhea -- Can try Imodium, follow-up if not improved, consider stool studies. JOSE MARQUEZ Dec 24, 2016 14:50
--- NOTE | 2016-12-25 14:44 | PATHOLOGY ---
PATHOLOGY REPORT * * * * * * * * FINAL DIAGNOSIS: Peripheral smear: - Moderate leukocytosis and absolute lymphocytosis comprised of small lymphocytes and smudge cells. - Macrocytic anemia, marked, with marked polychromasia and mild ansiopoikilocytosis. - Thrombocytopenia, marked. Bone marrow, aspirate smears, touch imprints, clot section, and core biopsy: - Markedly hypercellular marrow showing erythroid hyperplasia, adequate megakaryocytes, and a nodular and focal interstitial lymphocytosis comprised of small lympocytes having immunophenotypic findings compatible with marrow involvement by chronic lymphocytic leukemia. SEE COMMENT. - Absent iron stores. COMMENT: The peripheral smear shows a moderate leukocytosis comprised of small lymphocytes and smudge cells, marked macrocytic anemia with marked polychromasia and mild ansiopoikilocytosis, and marked thrombocytopenia. 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 The neoplastic B cells comprise approximately 30% of nucleated marrow cells. With regard to the anemia, the peripheral blood and bone marrow findings are compatible with an autoimmune hemolytic anemia. 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 Both autoimmune hemolytic anemia and autoimmune thrombocytopenia are known complications of B-cell chronic lymphocytic leukemia. (MARIANOM:haseeb; 12/24/2016) REPORT ELECTRONICALLY SIGNED BY: Jose Raul Bowles M.D. DATE/TIME: 12/25/2016 14:44 * * * * * * * * MICROSCOPIC DESCRIPTION: BONE MARROW Laboratory Data: The WBC count is 42.5 K/CMM. The RBC count is 2.00 M/CMM, hemoglobin 6.8 G/DL, hematocrit 22.3%, MCV 112 FL, MCH 34 PG, MCHC 31 G/DL, and the RDW is 16.4%. The platelet count is 16 K/CMM. On admission, the WBC count was 21.0 K/CMM with 76% lymphocytes, hemoglobin 8.1 G/DL, and platelet count less than 3.0 K/CMM. The reticulocyte count is 7.6% (corrected for anemia). The total protein is 5.8 G/DL, albumin 3.4 G/DL, creatinine 1.8 MG/DL, total bilirubin 3.6 MG/DL, direct bilirubin 0.6 MG/DL, LDL 611 U/L, ferritin 143 NG/ML, serum iron 83 UG/DL, TIBC 283 UG/DL, saturation 29%, vitamin B12 531 PG/ML, and folate 5.94 NG/ML. The haptoglobin is less than 10 MG/DL. The direct antiglobulin test is positive. The antibody screen is also positive. Antibody identification reveals a cold autoantibody and warm autoantibody. The patient received a platelet phoresis pack on 12/18/16. Peripheral Smear: The peripheral smear is reviewed. The WBC count is moderately increased. There is an absolute lymphocytosis. The WBC differential reveals a predominance of lymphocytes, with a smaller population of segmented neutrophils and a few monocytes noted. There are also smudge cells present. There is a leukoerythroblastic reaction comprised of an occasional immature granulocyte (myelocyte) and nucleated red blood cell. The lymphocyte population consists predominantly of small, relatively mature appearing lymphocytes. These lymphocytes have a high N/C ratio, and possess rounded to slightly irregular nuclei having a coarsely clumped chromatin. Red blood cells predominantly appear normochromic. There are increased polychromatophilic red blood cells. Red blood cells show mild anisocytosis and range from mildly macrocytic to normocytic. Red blood cells show only mild poikilocytosis with a few teardrop red blood cells and spherocytes noted. There is no evidence of red cell fragmentation. Platelets are markedly decreased. Aspirate Smears and Touch Imprints: Two Calderón's-stained aspirate smears and two Calderón's-stained biopsy touch imprints are examined. The smears contain multiple marrow particles which appear cellular for age. There are focally increased lymphocytes surrounding some of the particles, consistent with smeared nodular lymphoid infiltrates. The lymphoid infiltrates are comprised of small lymphocytes having a high N/C ratio. They possess rounded to slightly irregular nuclei having a coarsely condensed chromatin. The remaining areas of the smears reveal hematopoietic tissue with only a modest increase of lymphocytes. Overall, there is an erythroid hyperplasia. Erythroid maturation predominantly appears normoblastic. There is mild dyserythropoiesis. There are no megaloblastic or significant dysplastic changes. Granulopoiesis qualitatively appears normal. There is no significant left shift or dysplastic changes. Megakaryocytes appear adequate in number and are of variable ploidy. There are no cells foreign to the marrow. The biopsy touch imprints are bloody and do not add additional information. Bone Marrow Biopsy and Clot Sections: Sections of the bone marrow biopsy reveal several segments of bone showing focal aspiration artifact and hemorrhage. Preserved areas of the biopsy are on the order of 80-90% cellular. The clot sections contain multiple marrow particles, the majority of which are also on the order of 80% cellular. There are focally expansile irregular nodular and focal interstitial lymphoid infiltrates in the marrow, which are most prominent within the bone marrow biopsy. These infiltrates are composed of small lymphocytes having a high N/C ratio and possessing rounded to slightly irregular nuclei having a coarsely condensed chromatin. The remaining marrow shows an erythroid hyperplasia. There are admixed granulocytic precursors, which are present in varying stages of maturation. There are adequate numbers of megakaryocytes which are focally clustered. The megakaryocytes are of variable ploidy. To confirm flow cytometric findings and characterize the target cells in a tissue architectural context, immunohistochemical stains are obtained and yield the following results: Glycophorin A (A1): Erythroid precursors positive confirming an erythroid hyperplasia. CD20 (A1): Majority of small lymphocytes positive having a nodular and focal interstitial distribution. PAX-5 (A1): Majority of small lymphocytes positive having a nodular and focal interstitial distribution; lymphocytes comprise approximately 30% of nucleated marrow cells. CD3 (A1): Small population of small lymphocytes positive having a focal loosely nodular and predominant interstitial distribution. CD5 (A1): Small lymphocytes positive. CD23 (A1): Small lymphocytes positive. Cyclin D1 (A1): Small lymphocytes negative. Glycophorin A (B1): Erythroid precursors positive confirming an erythroid hyperplasia. CD20 (B1): Relatively small population of small lymphocytes positive having a focal nodular and interstitial distribution. PAX-5 (B1): Relatively small population of small lymphocytes positive having a focal nodular and interstitial distribution; lymphoid infiltrate comprises no more than 10% of nucleated marrow cells. CD3 (B1): Small population of small lymphocytes positive having an interstitial distribution. CD5 (B1): Small lymphocytes positive. CD23 (B1): Small lymphocytes positive. Cyclin D1: Small lymphocytes negative. The iron stain of the clot section shows absent iron stores. Special Studies: Bone marrow submitted for flow cytometry has a viability of 93.9%. Granulocytes comprise 33.7% of total cells and show phenotypic evidence of maturation. Monocytes comprise 1.4% of total cells and show phenotypic evidence of maturation. CD45 dim, CD34 positive cells comprise 0.4% of total cells. Plasma cells are not detected. Lymphocytes comprise 60.3% of total cells. T-cells comprise 6% of lymphoid cells and show a CD4/CD8 ratio of about 4.4. Mature B-cells comprise 56% of total cells and 94% of lymphoid cells and show dim monoclonal kappa light chain restriction. These B cells express CD5, CD19, CD20 (dim), CD11c (dim), and CD23. These B cells are negative for CD10 and CD38. Less than 1% of [id number] cells express CD38. (JPM:[facility]; 12/24/2016) GROSS PATHOLOGY: A. Received in formalin labeled "Jimmy Oliver," are several fragmented needle cores of dhaliwal bone and dark red blood clot, ranging from 0.4 to 1.2 cm in length and 0.2 cm in diameter. The specimen is submitted entirely in cassette A1, following decalcification. B. Received in formalin labeled "Jimmy Oliver," is blood coagulum, measuring 2.5 x 2.5 x 0.4 cm in aggregate dimensions. The specimen is submitted entirely in cassette B1. (JPM; 12/21/16) INITIAL CPT CODE(S): A; 68888, 01937, 52753, 90438, 94197, 50945, 21723, 72879, 51620 B; 69510, 36577, 27509, 82201, 72163, 04763, 72200, 67037, 16668 C; 65496, 99848 D; [place] Professional services [place] [address] Technical services performed by [facility] at [address] [place] [address], [address] [address]. SPECIMEN(S) RECEIVED: A.Bone marrow, biopsy B.Bone marrow, clot and/or particle prep C.Bone marrow, aspirate smears D.Peripheral smear CLINICAL HISTORY: Anemia, thrombocytopenia, leukocytosis PATIENT: JIMMY OLIVER /AGE: 1 1945 (Age: 71) PATIENT #: [id number] ALT CASE #: SPECIMEN COLLECTION DATE: 12/21/2016 SPECIMEN RECEIVED DATE: 12/21/2016 [facility] - [address] [place] [address] - PHONE: [phone] * * * END OF REPORT * * *
--- NOTE | 2016-12-29 13:14 | HP ---
ADMIT DATE: 12/18/2016 CHIEF COMPLAINT: Fatigue, exertional dyspnea and anemia. HISTORY OF PRESENT ILLNESS: A 71-year-old white male is followed by us for prediabetes and diastolic CHF and gout and was seen a month ago because of some recent increasing shortness of breath. He has had no cough, sputum production, weight loss, fever, chills, hemoptysis, melena, hematochezia or any other GI symptoms. Chest x-ray was clear at that time. His spirometry was abnormal. He was seen on the day of admission and was noted to have diffuse ecchymoses of the arms and mild pallor was noted. Stool was heme positive on rectal exam and his hemoglobin was 5.2 and he was admitted for further evaluation. He had a colonoscopy, which was normal in [address] Amaral. He has never had an EGD and has no history of any GI problems or bleeding disorders. He does not take aspirin or any anti-inflammatory drugs. PAST MEDICAL HISTORY: MEDICATIONS: Include allopurinol, furosemide and levothyroxine. ALLERGIES: He has no known drug allergies. PAST SURGICAL HISTORY: He has had a cholecystectomy, thyroidectomy, hernia repair, bilateral knee replacements and he has a cardiac pacemaker in. FAMILY HISTORY: Unremarkable for cancer or bleeding disorders that he is aware of. SOCIAL HISTORY: Nonsmoker, nondrinker, no history of liver disease. Retired. REVIEW OF SYSTEMS: No other specific complaints. OBJECTIVE: ENT: Moderate pallor is noted. No icterus is noted. He has numerous small facial angiomas present. Pharynx is clear. NECK: Revealed no carotid bruits, thyroid enlargement or masses. LUNGS: Clear. CARDIOVASCULAR: Regular rate. He has grade 2 systolic murmur, but no irregular beats. ABDOMEN: Obese, soft, benign and nontender. EXTREMITIES: He has diffuse ecchymoses of both forearms. Nailbeds look mildly pale. No splinter hemorrhages are noted. EXTREMITIES: Good pedal and radial pulses, 1+ ankle edema. RECTAL: Revealed normal prostate, no masses felt in the rectal vault. Brown stool was Hematest positive. NEUROLOGIC: Physiologic. ASSESSMENT: 1. Anemia newly discovered, etiology undetermined, but likely related to occult gastrointestinal bleeding and perhaps some sort of coagulopathy, given his diffuse ecchymoses. 2. Exertional dyspnea from anemia. 3. History of congestive heart failure, preserved ejection fraction, uncontrolled gout, hypothyroidism. PLAN: Multiple laboratory studies, type and cross 2 units packed red blood cells to achieve a hemoglobin at least 7 or greater. We will check his coags and appropriate consultations as he may well need at least EGD. JOSIAH CEBALLOS MD DR: ALIA/adonay JOB#: [id number] / [id number]
--- NOTE | 2016-12-29 13:15 | DS ---
DATE OF DISCHARGE: 12/24/2016 HOSPITAL SUMMARY: The patient came in with severe anemia and weakness and fatigue and was found to have severe thrombocytopenia and leukocytosis. Hemoglobin on admission was 8.1, MCV high at 110, white count high at 21,000 with high lymphocyte count. Platelets were less than 3000. Haptoglobin was low at less than 10 and retic count was high at 12 and LDH was high, all consistent with acute hemolysis. White count with steroids went up to 48,000, the hemoglobin has crept up to about 8.4, platelets have gone up to 24,000 and remains stable and the retic count is down to 5.2. His initial creatinine was somewhat elevated at 1.8 and has come down toward his baseline of 1.4 now and LDH is stable. Folate and B12 levels were normal, as was the TSH. HIV and hepatitis C antibody were both nonreactive. Doppler study of the leg showed some DVT in the right popliteal vein and right superficial femoral vein with no occlusion. Chest x-ray was clear. V/Q scan showed low probability of any pulmonary embolus. 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 He was treated with high dose prednisone 120 mg daily with good improvement of his hematologic parameters and subjectively feeling better with hemoglobin going up. IV fluids were given for his renal support that is better as well. Bone marrow study is pending at this time. He is comfortable to be followed as an outpatient. FINAL DIAGNOSES: 1. Severe anemia secondary to autoimmune hemolytic anemia. 2. 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 3. Probable chronic lymphocytic leukemia with secondary platelet and hemolysis processes. 4. Chronic kidney disease 3, stable. OPERATIONS AND PROCEDURES: Bone marrow biopsy, aspiration biopsy. COMPLICATIONS: None. CONSULTATIONS: Dr. Estrella, Dr. Garrido, interventional radiology, Dr. Go. DISPOSITION: He will continue prednisone 120 mg daily until his hemoglobin is up to [address] Estrella will taper off accordingly. He will take folic acid [address] Estrella will see him in 1 week to discuss appropriate therapy for bone marrow results, which would presumably be CLL treatment. I will see him in 1 week for blood pressure parameters and other evaluations. PROGNOSIS: Good. JOSIAH CEBALLOS MD DR: ALIA/adonay JOB#: [id number] / [id number]
[2017-02-03] MEDS ORDERED: PRED20TA PO (17:09)
[2017-02-03] MEDS ORDERED: ALLO300T PO (17:09)
== END 2016-12-24 13:15 | disposition home or self-care (01) | DRG 841 ==
LOC: 5 NORTH 12:16
PROVIDERS: ADMIT Family Medicine; ATTEND Family Medicine
PROC: 30233R1 Transfusion of Nonautologous Platelets into Peripheral Vein, Percutaneous Approach (ICD-10-PCS; principal; 2016-12-18)
PROC: 30233S1 Transfusion of Nonautologous Globulin into Peripheral Vein, Percutaneous Approach (ICD-10-PCS; 2016-12-18)
PROC: 07DR3ZX Extraction of Iliac Bone Marrow, Percutaneous Approach, Diagnostic (ICD-10-PCS; 2016-12-21)
DX: C91.10 Chronic lymphocytic leukemia of B-cell type not having achieved remission (principal); D59.1 Other autoimmune hemolytic anemias; N17.9 Acute kidney failure, unspecified; I82.411 Acute embolism and thrombosis of right femoral vein; D69.3 Immune thrombocytopenic purpura; E66.01 Morbid (severe) obesity due to excess calories; N18.3 Chronic kidney disease, stage 3 (moderate); H05.20 Unspecified exophthalmos; F84.0 Autistic disorder; I13.0 Hypertensive heart and chronic kidney disease with heart failure and stage 1 through stage 4 chronic kidney disease, or unspecified chronic kidney disease; I50.32 Chronic diastolic (congestive) heart failure; I82.431 Acute embolism and thrombosis of right popliteal vein; I27.29 Other secondary pulmonary hypertension; D53.9 Nutritional anemia, unspecified; Z68.39 Body mass index [BMI] 39.0-39.9, adult; E78.5 Hyperlipidemia, unspecified; G47.33 Obstructive sleep apnea (adult) (pediatric); Z96.653 Presence of artificial knee joint, bilateral; E80.6 Other disorders of bilirubin metabolism; I25.10 Atherosclerotic heart disease of native coronary artery without angina pectoris; I87.2 Venous insufficiency (chronic) (peripheral); M10.9 Gout, unspecified; M19.90 Unspecified osteoarthritis, unspecified site; Z82.49 Family history of ischemic heart disease and other diseases of the circulatory system; Z86.718 Personal history of other venous thrombosis and embolism; Z90.49 Acquired absence of other specified parts of digestive tract; Z95.0 Presence of cardiac pacemaker; Z98.61 Coronary angioplasty status
CPT/HCPCS: 36415; 38221; 71010; 71020; 76770; 77012; 78582; 80048; 80053; 80069; 81001; 82248; 82607; 82728; 82746; 83010; 83540; 83550; 83605; 83615; 83690; 83735; 84100; 84443; 84484; 85007; 85025; 85027; 85045; 85379; 85384; 85610; 85730; 86701; 86702; 86703; 86803; 86850; 86870; 86880; 86900; 86901; 86922; 87535; 88184; 88185; 88237; 88305; 88311; 88313; 88341; 88342; 93005; 93306; 93970; 96374; 99152; A9540; A9558; G0364; J1459; J1561; J2060; J2250; J3010; J3420; J7030; J7512; P9035

== ENCOUNTER 2017-02-03 11:28 | Inpatient (IN) | payer MEDICARE ==
[2017-02-03 12:57] LABS: BASO % 0 % (0-3); EOS % 0 % (0-3); HEMATOCRIT 36.6 % (39.0-53.0); HEMOGLOBIN 11.9 g/dL (13.0-17.5); LYMPH # 0.3 x10^3/uL (1.0-4.8); LYMPH % 4 % (24-48); MEAN CORPUSCULAR HEMOGLOBIN 30 pg (25-35); MEAN CORPUSCULAR HGB CONC 33 g/dL (31-37); MEAN CORPUSCULAR VOLUME 93 fL (79-100); MONO % 2 % (0-9); NEUT % 94 % (31-73); PLATELET COUNT 61 x10^3/uL (140-400); RED BLOOD COUNT 3.96 x10^6/uL (4.30-5.70); RED CELL DISTRIBUTION WIDTH 18.2 % (11.5-14.5); WHITE BLOOD COUNT 6.8 x10^3/uL (4.0-11.0)
[2017-02-03 12:58] LABS: ADD MAN DIFF? YES
[2017-02-03 13:15] LABS: ANION GAP 11 (6-14); BLOOD UREA NITROGEN 23 mg/dL (8-26); CALCIUM 7.6 mg/dL (8.5-10.1); CARBON DIOXIDE 27 mmol/L (21-32); CHLORIDE 102 mmol/L (98-107); CREATININE 1.4 mg/dL (0.7-1.3); GFR 50.1; GLUCOSE 167 mg/dL (70-99); POTASSIUM 4.5 mmol/L (3.5-5.1); SODIUM 140 mmol/L (136-145)
[2017-02-03 13:17] LABS: C-REACTIVE PROTEIN 55.6 mg/L (0-3.3)
[2017-02-03 14:07] LABS: SEDIMENTATION RATE 17 (0-15)
[2017-02-03 14:07] LABS: ANISOCYTOSIS SLIGHT; PLT ESTIMATE DECREASED (ADEQUATE); POIKILOCYTOSIS SLIGHT
[2017-02-03] MEDS: IV NORMAL SALINE 1000ML BAG 1,000 ML IV (14:17)
[2017-02-03] MEDS: IV NORMAL SALINE 500ML BAG 500 ML IV (14:33)
[2017-02-03] MEDS: VANCOMYCIN 2 GM in IV DEXTROSE 5 %-0.2 % NACL 500 ML IV (14:33)
[2017-02-03] MEDS: ONDANSETRON PF 4 MG/2 ML VIAL. IV (15:18)
[2017-02-03] MEDS: MORPHINE SULFATE 2 MG/ML DISP.SYRIN. IV (15:20)
[2017-02-03] MEDS: VANCOMYCIN PER PHARMACY MC (16:16)
[2017-02-03] MEDS ORDERED: VANCOMYCIN PER PHARMACY MC (16:30)
[2017-02-03] MEDS ORDERED: PIP/TAZO PER PHARMACY MC (16:30)
[2017-02-03] MEDS: predniSONE 20 MG TABLET PO (17:53)
[2017-02-03] MEDS: PIPERACILLIN/TAZO IV Push 3.375 GM VIAL. IVP ×2 (17:53→23:27)
[2017-02-03] MEDS: ALLOPURINOL 300 MG TABLET. PO (17:53)
[2017-02-03] MEDS: LEVOTHYROXINE 150 MCG TABLET PO (17:53)
[2017-02-03] MEDS ORDERED: PIPERACILLIN/TAZO IV Push 4.5 GM VIAL. IVP (18:00)
[2017-02-03] MEDS: HYDROcodone/APAP 7.5/325MG 1 TAB TABLET PO (20:39)
[2017-02-04] MEDS: IV NORMAL SALINE 1000ML BAG 1,000 ML IV (00:44)
[2017-02-04] MEDS: VANCOMYCIN 1.75 GM in IV DEXTROSE 5 %-0.2 % NACL 500 ML IV ×2 (00:58→14:37)
[2017-02-04] MEDS: LEVOTHYROXINE 150 MCG TABLET PO (04:55)
[2017-02-04] MEDS: PIPERACILLIN/TAZO IV Push 3.375 GM VIAL. IVP ×4 (04:55→22:46)
[2017-02-04 06:06] LABS: ADD MAN DIFF? NO
[2017-02-04 06:14] LABS: BASO % 1 % (0-3); EOS % 1 % (0-3); HEMATOCRIT 31.8 % (39.0-53.0); HEMOGLOBIN 10.4 g/dL (13.0-17.5); LYMPH # 0.2 x10^3/uL (1.0-4.8); LYMPH % 5 % (24-48); MEAN CORPUSCULAR HEMOGLOBIN 30 pg (25-35); MEAN CORPUSCULAR HGB CONC 33 g/dL (31-37); MEAN CORPUSCULAR VOLUME 93 fL (79-100); MONO % 5 % (0-9); NEUT % 88 % (31-73); PLATELET COUNT 50 x10^3/uL (140-400); RED BLOOD COUNT 3.43 x10^6/uL (4.30-5.70); RED CELL DISTRIBUTION WIDTH 18.6 % (11.5-14.5); WHITE BLOOD COUNT 4.2 x10^3/uL (4.0-11.0)
[2017-02-04 06:24] LABS: ANION GAP 8 (6-14); BLOOD UREA NITROGEN 24 mg/dL (8-26); CALCIUM 7.1 mg/dL (8.5-10.1); CARBON DIOXIDE 29 mmol/L (21-32); CHLORIDE 104 mmol/L (98-107); CREATININE 1.4 mg/dL (0.7-1.3); GFR 50.1; GLUCOSE 139 mg/dL (70-99); POTASSIUM 3.8 mmol/L (3.5-5.1); SODIUM 141 mmol/L (136-145)
[2017-02-04] MEDS ORDERED: hydroCHLOROthiazide 25 MG TABLET PO (09:00)
[2017-02-04] MEDS: predniSONE 20 MG TABLET PO (09:08)
[2017-02-04] MEDS: LISINOPRIL 20 MG TABLET PO (09:09)
[2017-02-04] MEDS: ALLOPURINOL 300 MG TABLET. PO (09:10)
[2017-02-04 09:24] LABS: RETIC COUNT 3.8 % (0.5-2.5)
[2017-02-04] MEDS: hydroCHLOROthiazide 12.5 MG CAPSULE PO (10:07)
[2017-02-04] MEDS: VANCOMYCIN PER PHARMACY MC (15:56)
[2017-02-04] MEDS: HYDROcodone/APAP 7.5/325MG 1 TAB TABLET PO (22:45)
[2017-02-05] MEDS: VANCOMYCIN 1.75 GM in IV DEXTROSE 5 %-0.2 % NACL 500 ML IV ×2 (02:31→14:25)
[2017-02-05] MEDS: PIPERACILLIN/TAZO IV Push 3.375 GM VIAL. IVP ×4 (05:20→23:29)
[2017-02-05] MEDS: LEVOTHYROXINE 150 MCG TABLET PO (05:20)
[2017-02-05] MEDS: LISINOPRIL 20 MG TABLET PO (09:19)
[2017-02-05] MEDS: ALLOPURINOL 300 MG TABLET. PO (09:19)
[2017-02-05] MEDS: predniSONE 20 MG TABLET PO (09:19)
[2017-02-05] MEDS: hydroCHLOROthiazide 12.5 MG CAPSULE PO (09:19)
[2017-02-05 13:48] LABS: ADD MAN DIFF? NO
[2017-02-05 13:52] LABS: BASO % 0 % (0-3); EOS % 1 % (0-3); HEMATOCRIT 32.1 % (39.0-53.0); HEMOGLOBIN 10.6 g/dL (13.0-17.5); LYMPH # 0.1 x10^3/uL (1.0-4.8); LYMPH % 3 % (24-48); MEAN CORPUSCULAR HEMOGLOBIN 31 pg (25-35); MEAN CORPUSCULAR HGB CONC 33 g/dL (31-37); MEAN CORPUSCULAR VOLUME 92 fL (79-100); MONO % 3 % (0-9); NEUT % 93 % (31-73); PLATELET COUNT 58 x10^3/uL (140-400); RED BLOOD COUNT 3.48 x10^6/uL (4.30-5.70); RED CELL DISTRIBUTION WIDTH 18.1 % (11.5-14.5); WHITE BLOOD COUNT 3.8 x10^3/uL (4.0-11.0)
[2017-02-05] MEDS: VANCOMYCIN PER PHARMACY MC (15:07)
[2017-02-05] MEDS: HYDROcodone/APAP 7.5/325MG 1 TAB TABLET PO (21:25)
[2017-02-06] MEDS: PIPERACILLIN/TAZO IV Push 3.375 GM VIAL. IVP ×2 (05:01→12:31)
[2017-02-06] MEDS: LEVOTHYROXINE 150 MCG TABLET PO (05:35)
[2017-02-06 06:45] LABS: ADD MAN DIFF? NO
[2017-02-06 06:55] LABS: BASO % 1 % (0-3); EOS % 2 % (0-3); HEMATOCRIT 31.6 % (39.0-53.0); HEMOGLOBIN 10.2 g/dL (13.0-17.5); LYMPH # 0.3 x10^3/uL (1.0-4.8); LYMPH % 9 % (24-48); MEAN CORPUSCULAR HEMOGLOBIN 30 pg (25-35); MEAN CORPUSCULAR HGB CONC 32 g/dL (31-37); MEAN CORPUSCULAR VOLUME 93 fL (79-100); MONO % 7 % (0-9); NEUT % 82 % (31-73); PLATELET COUNT 60 x10^3/uL (140-400); RED BLOOD COUNT 3.42 x10^6/uL (4.30-5.70); RED CELL DISTRIBUTION WIDTH 18.5 % (11.5-14.5); WHITE BLOOD COUNT 2.9 x10^3/uL (4.0-11.0)
[2017-02-06 07:16] LABS: ANION GAP 8 (6-14); BLOOD UREA NITROGEN 25 mg/dL (8-26); CALCIUM 7.6 mg/dL (8.5-10.1); CARBON DIOXIDE 29 mmol/L (21-32); CHLORIDE 106 mmol/L (98-107); CREATININE 1.5 mg/dL (0.7-1.3); GFR 46.3; GLUCOSE 105 mg/dL (70-99); POTASSIUM 4.1 mmol/L (3.5-5.1); SODIUM 143 mmol/L (136-145)
[2017-02-06] MEDS: hydroCHLOROthiazide 12.5 MG CAPSULE PO (08:45)
[2017-02-06] MEDS: predniSONE 20 MG TABLET PO (08:45)
[2017-02-06] MEDS: LISINOPRIL 20 MG TABLET PO (08:46)
[2017-02-06] MEDS: ALLOPURINOL 300 MG TABLET. PO (08:46)
[2017-02-06] MEDS ORDERED: VANCOMYCIN 2 GM in IV DEXTROSE 5% 500 ML IV (14:00)
== END 2017-02-06 14:00 | disposition home or self-care (01) | DRG 603 ==
LOC: ER 11:28 → 5 NORTH 14:17
DX: L03.114 Cellulitis of left upper limb (principal); C91.10 Chronic lymphocytic leukemia of B-cell type not having achieved remission; D69.59 Other secondary thrombocytopenia; D59.1 Other autoimmune hemolytic anemias; E66.01 Morbid (severe) obesity due to excess calories; N18.3 Chronic kidney disease, stage 3 (moderate); I13.0 Hypertensive heart and chronic kidney disease with heart failure and stage 1 through stage 4 chronic kidney disease, or unspecified chronic kidney disease; F84.0 Autistic disorder; I50.9 Heart failure, unspecified; M19.90 Unspecified osteoarthritis, unspecified site; E78.5 Hyperlipidemia, unspecified; I87.2 Venous insufficiency (chronic) (peripheral); M10.9 Gout, unspecified; E03.9 Hypothyroidism, unspecified; Z96.653 Presence of artificial knee joint, bilateral; Z95.0 Presence of cardiac pacemaker; Z90.49 Acquired absence of other specified parts of digestive tract; Z92.21 Personal history of antineoplastic chemotherapy; Z86.718 Personal history of other venous thrombosis and embolism; Z68.38 Body mass index [BMI] 38.0-38.9, adult; Z82.49 Family history of ischemic heart disease and other diseases of the circulatory system
CPT/HCPCS: 36415; 80048; 80202; 85007; 85025; 85045; 85651; 86140; 93971; 96365; 96366; 96375; 99285; 99285-25; J2270; J2405; J2543; J3370; J7030; J7040; J7512

== ENCOUNTER 2017-04-16 13:32 | Emergency (ER) | payer MEDICARE | END 2017-04-16 15:09 | disposition home or self-care (01) | LOC: ER 13:32 | DX: S51.012A Laceration without foreign body of left elbow, initial encounter (principal); S51.811A Laceration without foreign body of right forearm, initial encounter; S81.012A Laceration without foreign body, left knee, initial encounter; S70.11XA Contusion of right thigh, initial encounter; E03.9 Hypothyroidism, unspecified; I10 Essential (primary) hypertension; M19.90 Unspecified osteoarthritis, unspecified site; Z86.718 Personal history of other venous thrombosis and embolism; Z95.0 Presence of cardiac pacemaker; W01.0XXA Fall on same level from slipping, tripping and stumbling without subsequent striking against object, initial encounter; Y93.89 Activity, other specified; Y99.8 Other external cause status; Y92.89 Other specified places as the place of occurrence of the external cause | CPT/HCPCS: 70450; 73552; 99284-25 ==

== ENCOUNTER → 2017-06-08 | Outpatient (CLI) | payer MEDICARE | END | disposition home or self-care (01) | LOC: US 11:53 | DX: M79.89 Other specified soft tissue disorders (principal); I13.0 Hypertensive heart and chronic kidney disease with heart failure and stage 1 through stage 4 chronic kidney disease, or unspecified chronic kidney disease; N18.3 Chronic kidney disease, stage 3 (moderate); I50.9 Heart failure, unspecified; E03.9 Hypothyroidism, unspecified; R60.0 Localized edema; Z86.718 Personal history of other venous thrombosis and embolism | CPT/HCPCS: 93970 ==

== ENCOUNTER → 2017-08-17 | Outpatient (CLI) | payer MEDICARE | END | disposition home or self-care (01) | LOC: US 12:32 | DX: I82.492 Acute embolism and thrombosis of other specified deep vein of left lower extremity (principal); I82.890 Acute embolism and thrombosis of other specified veins; I13.0 Hypertensive heart and chronic kidney disease with heart failure and stage 1 through stage 4 chronic kidney disease, or unspecified chronic kidney disease; I50.9 Heart failure, unspecified; N18.3 Chronic kidney disease, stage 3 (moderate); E03.9 Hypothyroidism, unspecified; E78.5 Hyperlipidemia, unspecified | CPT/HCPCS: 93970 ==

== ENCOUNTER → 2017-09-28 | Outpatient (CLI) | payer MEDICARE ==
[2017-04-16 13:45] VITALS: BP 150/71
[~2017-09-28] MED LIST changes: +ALLO300T PO; +PRED20TA PO
--- NOTE | 2017-09-28 12:12 | RAD ---
EXAM: Right lower extremity venous Doppler sonogram. HISTORY: DVT. TECHNIQUE: Francis scale and color Doppler sonographic evaluation of the right lower extremity veins with spectral waveform analysis was performed. FINDINGS: There is nonocclusive thrombus within the right common femoral, superficial femoral and popliteal veins. There is normal color flow, normal compressibility and there are normal spectral waveforms in the right calf veins. IMPRESSION: Nonocclusive deep venous thrombosis involving the right common femoral, superficial femoral and popliteal veins. This is similar compared to the prior study dated 08/17/2017. Electronically signed by: Lesia Lan MD (09/28/2017 12:09 PM) [place] [id number]
== END | disposition home or self-care (01) ==
LOC: US 10:37
PROVIDERS: ATTEND Internal Medicine Hematology & Oncology
DX: I82.621 Acute embolism and thrombosis of deep veins of right upper extremity (principal); I13.0 Hypertensive heart and chronic kidney disease with heart failure and stage 1 through stage 4 chronic kidney disease, or unspecified chronic kidney disease; N18.3 Chronic kidney disease, stage 3 (moderate); I50.32 Chronic diastolic (congestive) heart failure; E78.5 Hyperlipidemia, unspecified; D64.9 Anemia, unspecified; E03.9 Hypothyroidism, unspecified; M19.90 Unspecified osteoarthritis, unspecified site; I25.10 Atherosclerotic heart disease of native coronary artery without angina pectoris; Z95.0 Presence of cardiac pacemaker; Z96.653 Presence of artificial knee joint, bilateral; Z86.718 Personal history of other venous thrombosis and embolism; Z92.21 Personal history of antineoplastic chemotherapy; Z90.49 Acquired absence of other specified parts of digestive tract; Z79.899 Other long term (current) drug therapy; Z98.61 Coronary angioplasty status; Z82.49 Family history of ischemic heart disease and other diseases of the circulatory system
CPT/HCPCS: 93971

== ENCOUNTER → 2017-10-06 | Outpatient (CLI) | payer MEDICARE ==
[2017-04-16 13:45] VITALS: BP 150/71
[~2017-10-06] MED LIST changes: +CONTRAST GIVEN. MC PRN; +IOHEXOL 240 MG/ML 50ML VIAL. PO ONE
--- NOTE | 2017-10-06 13:06 | RAD ---
CT chest abdomen pelvis without contrast dated 10/06/2017 no comparison available. Clinical data indication: Weight loss and abdominal pain. Diarrhea. technique: Contiguous axial imaging of the chest abdomen pelvis performed without the administration of intravenous contrast. Oral contrast was administered. FINDINGS: Heart size mildly enlarged. Tiny pericardial effusion. Coronary artery calcifications. Mild ectasia of the ascending thoracic aorta measuring 3.9 cm transverse. No mediastinal, hilar or axillary lymphadenopathy. Central airways are patent. Mild diffuse bronchial wall thickening. Minimal linear opacity at both lung bases, likely scar or atelectasis. No consolidation or pleural effusion. No pneumothorax. Solid abdominal viscera not well evaluated in the absence of contrast material. No apparent attenuation abnormality of the liver. The spleen is moderately enlarged. Splenic vein and portal vein are somewhat dilated. Nodular foci along the anterior margin of the spleen are most consistent with splenules. The gallbladder is not identified and may be surgically absent or collapsed. Adrenal glands and kidneys are unremarkable. No stone or hydronephrosis. Partially opacified GI tract is normal in caliber. There is some hazy increased density throughout the mesenteric fat and deep fat of pelvis. No focal bowel wall thickening. There are a few nonpathologically enlarged lymph nodes in the retroperitoneum. Aortocaval lymph node measures up to 10 mm short axis. No significant mesenteric lymphadenopathy. The appendix is not clearly identified. No focal inflammatory changes in the right lower quadrant. Possible mild wall thickening of the gastric antrum/pylorus. Images of the pelvis show nondistended urinary bladder. There are a few scattered diverticula within the distal colon. Prostate gland normal in size. No free fluid or lymphadenopathy. Bone windows show no acute findings. Multilevel thoracolumbar spondylosis. Mild levoconvex curvature of the lumbar spine. Deformity of the left iliac bone laterally could be related to prior trauma or osteochondroma. There is severe fatty atrophy of the left gluteus minimus muscle. IMPRESSION CHEST: 1. No acute abnormality of chest. 2. Cardiomegaly with small pericardial effusion. 3. Coronary artery calcifications. 4. Mild nonspecific bronchial wall thickening. Otherwise clear lungs. Impression abdomen pelvis: 1. Moderate splenomegaly. 2. Possible mild wall thickening of the gastric antrum/pylorus. If clinically indicated, EGD to better evaluate. 3. Mild hazy increased attenuation throughout the mesenteric fat, nonspecific. This could be related to generalized volume overload or mild mesenteric edema or early ascites. A mild generalized enteritis or colitis could also result in this appearance. 4. Diverticulosis. 5. Deformity of the lateral left iliac bone could be related to prior trauma or osteochondroma. There is severe fatty atrophy of the left gluteus minimus muscle. 6. Borderline enlarged retroperitoneal lymph nodes, nonspecific. Electronically signed by: Ronald Villalobos MD (10/06/2017 1:03 PM) [id number]
== END | disposition home or self-care (01) ==
LOC: CT 10:11
PROVIDERS: ATTEND Internal Medicine Hematology & Oncology
DX: I31.3 Pericardial effusion (noninflammatory) (principal); I25.10 Atherosclerotic heart disease of native coronary artery without angina pectoris; R16.1 Splenomegaly, not elsewhere classified; K57.30 Diverticulosis of large intestine without perforation or abscess without bleeding; R59.0 Localized enlarged lymph nodes; R63.4 Abnormal weight loss; I13.0 Hypertensive heart and chronic kidney disease with heart failure and stage 1 through stage 4 chronic kidney disease, or unspecified chronic kidney disease; N18.3 Chronic kidney disease, stage 3 (moderate); I50.32 Chronic diastolic (congestive) heart failure; E78.5 Hyperlipidemia, unspecified; E03.9 Hypothyroidism, unspecified; Z90.49 Acquired absence of other specified parts of digestive tract
CPT/HCPCS: 71250; 74176; Q9966

== ENCOUNTER 2017-10-18 09:40 | Outpatient (CLI) | payer MEDICARE ==
[2017-10-18] VITALS (9 sets, daily range): BP systolic 116–170; BP diastolic 54–91
[~2017-10-18] VITALS: Ht 182.9 cm; Wt 104.3 kg
[~2017-10-18 09:40] MED LIST changes: -CONTRAST GIVEN. MC PRN; -IOHEXOL 240 MG/ML 50ML VIAL. PO ONE
[2017-10-18] MEDS ORDERED: MIDAZOLAM HCL/PF 2 MG/2 ML VIAL. ONE (10:26)
[2017-10-18] MEDS ORDERED: fentaNYL PF VIAL 100 MCG/2 ML VIAL ONE (10:26)
[2017-10-18] MEDS ORDERED: MIDAZOLAM HCL/PF 2 MG/2 ML VIAL. IV ONE (10:30)
[2017-10-18] MEDS ORDERED: fentaNYL PF VIAL 100 MCG/2 ML VIAL IV ONE (10:30)
[2017-10-18] MEDS ORDERED: LIDOCAINE WITH 8.4% SOD BICARB 3 ML DISP.SYRIN. IJ ONE (10:30)
[2017-10-18 10:42] LABS: PROTHROMBIN TIME PATIENT 14.3 SEC (11.7-14.0)
[2017-10-18 10:43] LABS: BASO % 1 % (0-3); EOS # 0.1 x10^3/uL (0.0-0.7); EOS % 4 % (0-3); HEMATOCRIT 38.4 % (39.0-53.0); HEMOGLOBIN 13.1 g/dL (13.0-17.5); LYMPH # 0.1 x10^3/uL (1.0-4.8); LYMPH % 9 % (24-48); MEAN CORPUSCULAR HEMOGLOBIN 30 pg (25-35); MEAN CORPUSCULAR HGB CONC 34 g/dL (31-37); MEAN CORPUSCULAR VOLUME 88 fL (79-100); MONO # 0.4 x10^3/uL (0.0-1.1); MONO % 34 % (0-9); NEUT # 0.7 x10^3uL (1.8-7.7); NEUT % 52 % (31-73); PLATELET COUNT 40 x10^3/uL (140-400); RED BLOOD COUNT 4.37 x10^6/uL (4.30-5.70); RED CELL DISTRIBUTION WIDTH 16.6 % (11.5-14.5)
[2017-10-18] MEDS ORDERED: LIDOCAINE WITH 8.4% SOD BICARB 3 ML DISP.SYRIN. ONE (10:43)
[2017-10-18 10:48] LABS: WHITE BLOOD COUNT 1.3 x10^3/uL (4.0-11.0)
[2017-10-18] MEDS ORDERED: ONDA8TAB12 PO (10:48)
[2017-10-18] MEDS ORDERED: ENTE0.5T PO (10:48)
[2017-10-18 12:29] LABS: % BANDS 23 % (0-9); % EOS 2 % (0-5); % LYMPHS 6 % (24-48); % MONOS 36 % (0-10); % SEGS 33 % (35-66)
[2017-10-18 12:30] LABS: ANISOCYTOSIS SLIGHT; OVALOCYTES PRESENT; PLT ESTIMATE DECREASED (ADEQUATE)
--- NOTE | 2017-10-18 12:36 | RAD ---
CT-guided bone marrow biopsy. 10/18/2017 12:32 PM Indication: Chronic lymphocytic leukemia Discussion: The risks and benefits of the procedure, including but not limited to, bleeding and infection were discussed patient. Informed consent was obtained. The patient was brought to the CT scanner and placed in the prone position. A timeout procedure was performed. Service Agent CT imaging of the pelvis demonstrated left ilium amenable to bone marrow biopsy. The overlying soft tissues were prepped and draped using maximum sterile barrier technique. 1% lidocaine without epinephrine was administered for local anesthesia. Under intermittent CT guidance, an OncControl needle was advanced into the bone marrow of the left iliac crest. 2 Aspirates and 1 core biopsy samples were obtained. Samples were delivered to pathology was present at the time of procedure. The needle was removed and manual pressure held to achieve hemostasis. No immediate complications were identified. The procedure was performed under conscious sedation including continuous cardiopulmonary monitoring via dedicated sedation nurse. Sedation time: 20 minutes Impression: Successful CT-guided bone marrow biopsy of the left iliac crest . PQRS Compliance Statement: One or more of the following individualized dose reduction techniques were utilized for this examination: 1. Automated exposure control 2. Adjustment of the mA and/or kV according to patient size 3. Use of iterative reconstruction technique
--- NOTE | 2017-10-20 20:07 | PATHOLOGY ---
[facility] Accession Number: [id number] . 01 Material submitted: . PART A: BONE MARROW BIOPSY PART B: BONE MARROW CLOT PART C: BONE MARROW ASPIRATE SLIDES PART D: PERIPHERAL SMEAR . 01 Clinical history: . CLL . 02 Diagnosis: Peripheral smear: - Moderate leukopenia with moderate absolute neutropenia and lymphopenia. - Thrombocytopenia, marked. . Bone marrow, aspirate smears, clot section, and core biopsy: - Normocellular to focally mildly hypercellular marrow showing trilineage hematopoiesis, erythroid hyperplasia, no significant dyspoiesis and adequate megakaryocytes - negative for involvement by chronic lymphocytic leukemia/small lymphocytic lymphoma. - Essentially absent iron stores. [facility]/10/20/2017 . 02 Comment: The peripheral smear shows moderate leukopenia with moderate absolute neutropenia and lymphopenia, and marked thrombocytopenia. The bone marrow is normocellular to focally mildly hypercellular marrow and shows trilineage hematopoiesis, erythroid hyperplasia, no significant dyspoiesis, adequate megakaryocytes, and essentially absent iron stores. The patient has a previously established diagnosis of marrow involvement by chronic lymphocytic leukemia/small lymphocytic lymphoma. There is no evidence of marrow involvement by B-cell chronic lymphocytic leukemia/small lymphocytic lymphoma. The leukopenia and thrombocytopenia may be due to immune destruction or a result of hypersplenism (patient has moderate splenomegaly on CT). (JPM:[facility] 10/20/2017) . Special stains performed: Iron stain on B1 on the aspirate smear, and reticulin stain on A1 and immunoperoxidase stains for CD20, PAX5 and CD3 are performed on A1 as well as on B1. . 02 Electronically signed: . Jose Raul Bowles MD, Pathologist NPI- [id number] . 01 Gross description: . A. Received in formalin labeled "Geronimo, Ray," and additionally labeled on the requisition as "BM BX," are 2 fragments of dhaliwal bone ranging from 0.8 to 0.9 in maximum dimension and measuring 0.2 cm in diameter. The specimen is submitted entirely in cassette A1, following decalcification. . B. Received in formalin labeled "Jimmy Melton, BM aspirate clot," is an aggregate of dark dhaliwal blood clot measuring 2.7 x 2.5 x 0.3 cm in aggregate dimensions. The specimen is filtered and entirely submitted in cassette B1. ([facility]; 10/18/2017) TOB/TOB . 02 Microscopic: . Laboratory Data: The WBC count is 1.3 K/CMM, and the automated WBC differential reveals 52% neutrophils, 9% lymphs, 34% monos, 4% eos, and 1% baso. The RBC count is 4.37 M/CMM, hemoglobin 13.1 G/DL, hematocrit 38.4%, MCV 88 FL, MCH 30 PG, MCHC 34 G/DL, and the RDW is 16.6%. The platelet count is 40 K/CMM. . Peripheral Smear: The peripheral smear is reviewed. The WBC count is moderately decreased. There is a moderate absolute neutropenia and absolute lymphopenia. The WBC differential reveals a predominance of segmented neutrophils, with a smaller population of monocytes and a few lymphocytes noted. Neutrophils do not show dysplastic changes. There is no significant neutrophilic left shift. There are no circulating blasts. There is no leukoerythroblastic reaction. The lymphocyte population consists predominantly of small lymphocytes. Red blood cells predominantly appear normochromic and normocytic. Red blood cells show mild anisocytosis and mild poikilocytosis with a few ovalocytes and occasional teardrop red blood cell noted. Platelets are markedly decreased and appear normal in morphology. . Aspirate Smears: Two Calderón's-stained and one iron-stained aspirate smears are examined. The smears contain multiple marrow particles. Overall, there appears to be a mild erythroid hyperplasia. Erythroid maturation predominantly appears normoblastic. There are no megaloblastic changes. There are occasional dysplastic erythroid precursors which have an irregular nuclear shape or show binucleation. There are no overt dysplastic changes. Granulopoiesis qualitatively appears normal. There appears to be a modest left shift of granulopoiesis. There is no increase of blasts. Megakaryocytes appear adequate in number and are of variable ploidy. Plasma cells are not increased. There is no increase of lymphocytes. There is no atypical lymphoreticular infiltrate. There are no cells foreign to the marrow. The iron stain shows absent iron stores. No ringed sideroblasts are identified. . Bone Marrow Biopsy and Clot Section: Sections of the bone marrow biopsy reveal several segments of bone marrow showing focal aspiration artifact. Preserved areas of the biopsy range between 30% and 40-50% cellular. The clot section contains multiple marrow particles, the majority of which range between 20% and 60% cellular. There is trilineage hematopoiesis. Overall, there does appear to be a mild erythroid hyperplasia. Granulocytic precursors are present in varying stages of maturation and do appear to be modestly left shifted. There is no increase of blasts. Megakaryocytes appear adequate in number and are of variable ploidy. There are two small clusters of lymphocytes within the clot section which are comprised of small lymphocytes having rounded to slightly irregular nuclei. There are no obvious lymphoid nodules identified within the bone marrow biopsy. There is no atypical lymphoid infiltrate identified within either the biopsy or clot section. There are no granulomas or cells foreign to the marrow. To confirm flow cytometric findings and characterize the target cells in a tissue architectural context, limited panel of immunoperoxidase stains is obtained on the biopsy and clot section and yield the following results: . CD20 (A1): Small lymphocytes negative PAX5 (A1): Small lymphocytes negative CD3 (A1): Small population of small lymphocytes positive having an interstitial distribution and occasionally present in small clusters. . CD20 (B1): Small lymphocytes negative PAX5 (B1): Small lymphocytes negative CD3 (B1): Small population of small lymphocytes positive having an interstitial distribution and occasionally present in small clusters. . A reticulin stain obtained on the biopsy shows no increase of reticulin fibers. An iron stain obtained on the clot section shows nearly absent iron stores. . Special Studies: Bone marrow submitted for flow cytometry has a viability of 99.3%. Granulocytes comprise 94.7% of total cells and show phenotypic evidence of left shifted maturation without dysmaturation. Monocytes comprise 1.6% of total cells and show phenotypic evidence of maturation. CD45 dim, CD34 positive cells comprise 1.1% of total cells. Plasma cells are absent. Lymphocytes comprise 0.9% of total cells. . T-cells comprise 70% of lymphoid cells and show a CD4/CD8 ratio of 0.8. NK-cells comprise 22% of lymphoid cells. Mature B-cells comprise 0% of lymphoid cells and are insufficient in number to evaluate for clonality. There are no diagnostic immunophenotypic abnormalities detected. . (JPM:[facility] 10/20/2017) . 02 Pathologist provided ICD-10: D72.819, D70.9, D72.810, D69.6 . 02 CPT . 221326, 185351, 208179, 044848, 532074, 567541, 664637, 223219, K25530, K18067 Specimen Comment: A courtesy copy of this report has been sent to Specimen Comment: [phone], , . Specimen Comment: Report sent to , DR HANDLEY / DR CEBALLOS Performed at: 01 [facility] [address], [place] [id number] MD Andrei Alcantara MD Phone: [phone] Performed at: 02 [facility] [address] [place], [place] [id number] MD Jose Raul Bowles MD Phone: [phone]
== END 2017-10-18 13:02 | disposition home or self-care (01) ==
LOC: INTRAD 09:40
PROVIDERS: ATTEND Internal Medicine Hematology & Oncology
DX: C91.10 Chronic lymphocytic leukemia of B-cell type not having achieved remission (principal); D69.6 Thrombocytopenia, unspecified
CPT/HCPCS: 36415; 38222; 77012; 85025; 85610; 85730; 88184; 88185; 88237; 88305; 88311; 88313; 88341; 88342; 99152; J2250; J3010; 85007

== ENCOUNTER → 2017-10-28 | Day surgery (SDC) | payer MEDICARE ==
[~2017-10-28] MED LIST changes: +ENTE0.5T PO; +ONDA8TAB12 PO; +PROPOFOL 40 ML IV ONE
[2017-10-28 14:53] VITALS: BP 146/62
--- NOTE | 2017-10-29 14:08 | PATHOLOGY ---
[facility] Accession Number: [id number] . 01 Material submitted: . PART A: DUODENAL BIOPSY PART B: TRANSVERSE COLON POLYPECTOMY PART C: RANDOM COLON BIOPSY PART D: CECAL POLYPECTOMY . 01 Clinical history: . Weight loss, diarrhea . 02 Diagnosis: A. Duodenal biopsies: - Focal mild nonspecific duodenitis. . B. Transverse colon polypectomies: - Tubular adenomas. . C. Random colon biopsies: - No significant pathologic abnormalities. . D. Cecum polypectomy: - Tubular adenoma. [facility]/10/29/2017 . 02 Comment: Sections of the duodenal biopsy show focal mild chronic inflammation with few admixed neutrophils. There are no sprue-like changes. Sections of the transverse colon polypectomies reveal tubular adenomas showing no high-grade dysplasia or evidence of malignancy. Sections of the random colon biopsy reveal multiple segments of colonic mucosa. There is no evidence of a chronic destructive colitis, lymphocytic colitis, or collagenous colitis. Sections of the cecum polypectomy reveal a tubular adenoma showing no high-grade dysplasia or evidence of malignancy. (JPM:[facility] 10/29/2017) . 02 Electronically signed: . Jose Raul Bowles MD, Pathologist NPI- [id number] . 01 Gross description: . A. Received in formalin labeled "Geronimo, Ray, duodenal," are multiple segments of dhaliwal soft tissue measuring 2.1 x 0.5 x 0.2 cm in aggregate dimensions. The specimen is filtered and entirely submitted in cassette A1. . B. Received in formalin labeled "Geronimo, Ray, transverse colon polyp," and additionally labeled on the requisition as "polypectomy," are 3 segments of dhaliwal soft tissue measuring 0.6 x 0.4 x 0.3 cm in aggregate dimensions and ranging from 0.3 to 0.4 cm in maximum dimension. The specimen is submitted entirely in cassette B1. . C. Received in formalin labeled "Geronimo, Ray, random colon biopsy," are multiple segments of dhaliwal soft tissue measuring 1.8 x 0.4 x 0.2 cm in aggregate dimensions. The specimen is filtered and entirely submitted in cassette C1. . D. Received in formalin labeled "Geronimo, Ray, cecum polyp," is a 0.8 x 0.6 x 0.5 cm polypoid piece of dhaliwal soft tissue. The margin is inked and the specimen is sectioned perpendicular to the margin and entirely submitted in cassette D1. ([facility]; 10/28/2017) TOB/TOB . 02 Pathologist provided ICD-10: D12.0, D12.3, K29.80 . 02 CPT . 366820, 764597, 982943, 108298 Specimen Comment: A courtesy copy of this report has been sent to Specimen Comment: [phone], . Specimen Comment: Report sent to / DR CEBALLOS Specimen Comment: A duplicate report has been generated due to demographic updates. Performed at: 01 [facility] [address], [place] [id number] MD Andrei Alcantara MD Phone: [phone] Performed at: 02 [facility] [address] [place], [place] [id number] MD Jose Raul Bowles MD Phone: [phone]
== END | disposition home or self-care (01) ==
LOC: SURG 12:07
PROVIDERS: ATTEND Internal Medicine Gastroenterology
DX: D12.3 Benign neoplasm of transverse colon (principal); D12.0 Benign neoplasm of cecum; K57.30 Diverticulosis of large intestine without perforation or abscess without bleeding; K64.0 First degree hemorrhoids; K29.80 Duodenitis without bleeding; K29.50 Unspecified chronic gastritis without bleeding; K31.89 Other diseases of stomach and duodenum; F41.9 Anxiety disorder, unspecified; M19.90 Unspecified osteoarthritis, unspecified site; I10 Essential (primary) hypertension; Z83.3 Family history of diabetes mellitus; Z82.49 Family history of ischemic heart disease and other diseases of the circulatory system; Z79.899 Other long term (current) drug therapy; Z95.0 Presence of cardiac pacemaker; Z90.49 Acquired absence of other specified parts of digestive tract; Z98.890 Other specified postprocedural states; Z96.653 Presence of artificial knee joint, bilateral
CPT/HCPCS: 43239; 45380; 45385; 88305; J2704

== ENCOUNTER → 2017-12-28 | Outpatient (CLI) | payer MEDICARE ==
[2017-10-28 14:53] VITALS: BP 146/62
[~2017-12-28] MED LIST changes: -PROPOFOL 40 ML IV ONE
--- NOTE | 2017-12-28 09:47 | CARD ---
MR#: [id number] Date of Study: 12/28/2017 Ordering Physician: CHANTEL GUTIÉRREZ, Referring Physician: CHANTEL GUTIÉRREZ, Tech: Arianna Guzman APPROVED REPORT EXAM: Two-dimensional and M-mode echocardiogram with Doppler and color Doppler. Other Information Quality : GoodHR: 62bpm INDICATION Complete Heart Block Surgery/Intervention Pacemaker: RISK FACTORS Hypertension 2D DIMENSIONS RVDd3.6 (2.9-3.5cm)Left Atrium(2D)5.0 (1.6-4.0cm) IVSd1.1 (0.7-1.1cm)Aortic Root(2D)3.7 (2.0-3.7cm) LVDd5.7 (3.9-5.9cm)LVOT Diameter2.6 (1.8-2.4cm) PWd1.2 (0.7-1.1cm)LVDs5.0 (2.5-4.0cm) FS (%) 11.2 %SV37.6 ml Aortic Valve AoV Peak Lexa.146.5cm/sAoV VTI32.1cm AO Peak GR.8.6mmHgLVOT Peak Lexa.110.5cm/s LVOT VTI 21.42cmAO Mean GR.5mmHg CESAR (VMAX)2.43pk6DHG (VTI)3.54cm2 AI P 1/2 Mtfb809ti Mitral Valve MV E Bqhetkzq13.5cm/sMV E Peak Gr.91mmHg MV DECEL HDDJ388ruIL A Ahkapebi05.1cm/s MV DDL89inX/A Ratio2.3 MVA (PHT)3.59cm2 TDI E/Lateral E'16.7E/Medial E'16.8 Pulmonary Valve PV Peak Hynsraje267.1cm/sPV Peak Grad.4mmHg Tricuspid Valve TR P. Znjbygpw835vq/sRAP TEDWSCJC37ocDt TR Peak Gr.08brXtIPUK95pqEx Pulmonary Vein S1 Wvbkfauh33.1cm/sD2 Bhxbokez04.4cm/s LEFT VENTRICLE The left ventricle is normal size. There is borderline concentric left ventricular hypertrophy. The E jection Fraction is 45-50%. Abnormal septal motion probably from paced rhythm. RIGHT VENTRICLE The right ventricle is normal size. There is normal right ventricular wall thickness. The right ventr icular systolic function is normal. Pacer wire noted in right atrium and right ventricle. AORTIC VALVE The aortic valve is thickened but opens well. Doppler and Color Flow revealed mild aortic regurgitati on. There is no significant aortic valvular stenosis. MITRAL VALVE The mitral valve is normal in structure and function. Doppler and Color-flow revealed mild mitral reg urgitation. TRICUSPID VALVE The tricuspid valve is normal in structure and function. Doppler and Color Flow revealed trace to mil d tricuspid regurgitation. There is no tricuspid valve stenosis. PULMONIC VALVE The pulmonic valve is not well visualized. Doppler and Color Flow revealed trace pulmonic valvular re gurgitation. GREAT VESSELS The aortic root is normal in size. The IVC is dilated and collapses <50% with inspiration. PERICARDIAL EFFUSION There is no evidence of significant pericardial effusion. Critical Notification Critical Value: No <Conclusion> Abnormal septal motion probably from paced rhythm. The Ejection Fraction is 45-50%. Pacer wire noted in right atrium and right ventricle. Mild aortic regurgitation. Mild mitral regurgitation. Trace to mild tricuspid regurgitation. There is no evidence of significant pericardial effusion. Signed by : Chantel Gutiérrez, Electronically Approved : 12/28/2017 09:45:58
== END | disposition home or self-care (01) ==
LOC: ECHO 07:38
PROVIDERS: ATTEND Internal Medicine Cardiovascular Disease
DX: I44.2 Atrioventricular block, complete (principal); I08.0 Rheumatic disorders of both mitral and aortic valves; I10 Essential (primary) hypertension
CPT/HCPCS: 93306

== ENCOUNTER → 2018-03-31 | Outpatient (CLI) | payer MEDICARE ==
[2017-10-28 14:53] VITALS: BP 146/62
--- NOTE | 2018-03-31 09:17 | RAD ---
Right lower extremity venous ultrasound, 03/31/2018 : History: Chronic right leg DVT, follow-up Duplex evaluation including grayscale, color flow and spectral Doppler analysis was performed. Comparison is made to a study from 12/03/2017. The common femoral vein is widely patent. There is nonocclusive thrombus in the superficial femoral vein which appears similar to that seen on the previous study. The thrombus is mildly echogenic. It extends into the popliteal vein. The posterior tibial vein in the calf remains patent. IMPRESSION: Chronic nonocclusive thrombus in the right superficial femoral and popliteal veins, similar to that seen on 12/03/2017. Electronically signed by: Maury Mendez MD (03/31/2018 9:14 AM) [facility]
== END | disposition home or self-care (01) ==
LOC: US 07:19
PROVIDERS: ATTEND Internal Medicine Hematology & Oncology
DX: C91.90 Lymphoid leukemia, unspecified not having achieved remission (principal); I82.811 Embolism and thrombosis of superficial veins of right lower extremity
CPT/HCPCS: 93971

== ENCOUNTER → 2018-06-27 | Outpatient (CLI) | payer MEDICARE ==
[2017-10-28 14:53] VITALS: BP 146/62
--- NOTE | 2018-06-27 11:37 | RAD ---
Right lower extremity venous duplex study 06/27/2018 11:33 AM Clinical History: Chronic right lower extremity thrombus COMPARISON STUDY: Right lower extremity venous duplex ultrasound March 31, 2018 Technique: Using a combination of real time ultrasound imaging and color-flow and pulse Doppler imaging techniques, including spectral analysis, graded compression and augmentation, duplex evaluation of the deep venous system of the right lower extremity was performed. Multiple images were obtained. Findings: There is continued presence of eccentric chronic appearing nonocclusive thrombus in the right superficial and popliteal veins. The appearance is similar to comparison study. No sonographic evidence of the new/acute deep venous thrombosis is identified. Impression: Grossly similar appearance of chronic appearing thrombus involving the right superficial femoral and popliteal veins. Electronically signed by: Anuel Salvador MD (06/27/2018 11:35 AM) [id number]
== END | disposition home or self-care (01) ==
LOC: US 10:42
PROVIDERS: ATTEND Internal Medicine Hematology & Oncology
DX: I80.291 Phlebitis and thrombophlebitis of other deep vessels of right lower extremity (principal); C91.90 Lymphoid leukemia, unspecified not having achieved remission
CPT/HCPCS: 93971

== ENCOUNTER → 2018-12-13 | Outpatient (CLI) | payer MEDICARE ==
[2017-10-28 14:53] VITALS: BP 146/62
[~2018-12-13] MED LIST changes: +LISI1TAB20 PO; -LISI1TAB7 PO
--- NOTE | 2018-12-13 08:47 | CARD ---
MR#: [id number] Date of Study: 12/13/2018 Ordering Physician: CHANTEL PINTO, Referring Physician: Lee Ann MACHADO: Ne Sommers APPROVED REPORT EXAM: Two-dimensional and M-mode echocardiogram with Doppler and color Doppler. Other Information Quality : AverageHR: 70bpm INDICATION Chronic Diastolic Heart Failure 2D DIMENSIONS RVDd4.0 (2.9-3.5cm)Left Atrium(2D)4.5 (1.6-4.0cm) IVSd1.2 (0.7-1.1cm)Aortic Root(2D)3.2 (2.0-3.7cm) LVDd5.1 (3.9-5.9cm)LVOT Diameter2.6 (1.8-2.4cm) PWd0.9 (0.7-1.1cm)LVDs4.3 (2.5-4.0cm) FS (%) 14.8 %SV38.0 ml LVEF(%)31.3 (>50%) Aortic Valve AoV Peak Lexa.136.1cm/sAoV VTI25.4cm AO Peak GR.7.4mmHgLVOT Peak Lexa.102.5cm/s LVOT VTI 21.65cmAO Mean GR.5mmHg CESAR (VMAX)2.03wi7UBS (VTI)4.40cm2 AI P 1/2 Rtya877to Mitral Valve MV E Lwgwusxh45.5cm/sMV DECEL ANGY982fs MV A Nftvnrvx57.3cm/sMV PHQ93ln E/A Ratio1.5MVA (PHT)3.76cm2 TDI E/Lateral E'7.1E/Medial E'23.0 Pulmonary Valve PV Peak Pwzimaqw09.6cm/sPV Peak Grad.2mmHg Tricuspid Valve RAP PDGQZFCM7ktVn Pulmonary Vein S1 Kbirlbyz50.2cm/sD2 Ywqlogtg45.1cm/s PVa xzwmgulh998eurb LEFT VENTRICLE The left ventricle size is normal in diastole but dilated in systole. There is mild septal left ventr icular hypertrophy. The systolic function is moderately impaired. The Ejection Fraction is 35 - 40%. There is global hypokinesis of the left ventricle. Transmitral Doppler flow pattern is Grade II-pseud onormal filling dynamics. RIGHT VENTRICLE The right ventricle may be mildly dilated. There is normal right ventricular wall thickness. The righ t ventricular systolic function is normal. There is a pacemaker/ICD lead in the RA/RV ATRIA The left atrium is mildly dilated. The right atrium is mildly dilated. A pacemaker is seen in the rig ht atrium consistent with history. The interatrial septum is intact with no evidence for an atrial se ptal defect or patent foramen ovale as noted on 2-D or Doppler imaging. AORTIC VALVE The aortic valve is thickened but opens well. Doppler and Color Flow revealed mild aortic regurgitati on. There is no significant aortic valvular stenosis. MITRAL VALVE The mitral valve is thickened but opens well. Mitral annular calcification is mild to moderate. There is no evidence of mitral valve prolapse. There is no mitral valve stenosis. Doppler and Color-flow r evealed mild mitral regurgitation. TRICUSPID VALVE The tricuspid valve is normal in structure and function. Doppler and Color Flow revealed trace tricus pid regurgitation. There is no tricuspid valve stenosis. PULMONIC VALVE The pulmonic valve is not well visualized. Doppler and Color Flow revealed trace pulmonic valvular re gurgitation. There is no pulmonic valvular stenosis. GREAT VESSELS The aortic root is normal in size. The ascending aorta is normal in size. The IVC is normal in size a nd collapses >50% with inspiration. PERICARDIAL EFFUSION There is no pleural effusion. There is no evidence of significant pericardial effusion. Critical Notification Critical Value: No <Conclusion> The systolic function is moderately impaired. The Ejection Fraction is 35 - 40%. There is global hypokinesis of the left ventricle. There is a pacemaker/ICD lead in the RA/RV Doppler and Color Flow revealed mild aortic regurgitation. Doppler and Color-flow revealed mild mitral regurgitation. Signed by : Van Shabazz, Electronically Approved : 12/13/2018 08:46:42
== END | disposition home or self-care (01) ==
LOC: ECHO 07:36
PROVIDERS: ATTEND Internal Medicine Cardiovascular Disease
DX: I08.0 Rheumatic disorders of both mitral and aortic valves (principal)
CPT/HCPCS: 93306

== ENCOUNTER → 2019-03-31 | Outpatient (CLI) | payer MEDICARE ==
[2017-10-28 14:53] VITALS: BP 146/62
--- NOTE | 2019-03-31 17:32 | RAD ---
EXAM: Right lower extremity venous Doppler. HISTORY: Right lower extremity pain/swelling and color changes. Known chronic right lower extremity deep venous thrombosis. COMPARISON: 09/09/2018. FINDINGS: Grayscale and Doppler analysis of the right lower extremity deep venous system was performed with graded compression and augmentation. The common femoral, greater saphenous, superficial femoral, popliteal and calf veins were assessed. There is nonocclusive thrombus within the right superficial femoral, popliteal, posterior tibial and peroneal veins. The posterior tibial and peroneal venous thrombus was not described previously, though they were not well visualized on prior studies. No clearly acute thrombus is seen. IMPRESSION: 1. Chronic nonocclusive deep venous thrombosis is again noted within the superficial femoral and popliteal veins. Additional nonocclusive thrombus is now seen in the right posterior tibial and peroneal veins. This was not described previously, though this may have been from technical differences in visualization. Correlate with symptoms to exclude new deep venous thrombosis in the right calf. Electronically signed by: Joseph Davis MD (03/31/2019 5:29 PM) [facility] [place]
== END | disposition home or self-care (01) ==
LOC: US 09:30
PROVIDERS: ATTEND Internal Medicine Hematology & Oncology
DX: I82.451 Acute embolism and thrombosis of right peroneal vein (principal); I82.441 Acute embolism and thrombosis of right tibial vein; I82.511 Chronic embolism and thrombosis of right femoral vein; I82.531 Chronic embolism and thrombosis of right popliteal vein; C91.10 Chronic lymphocytic leukemia of B-cell type not having achieved remission
CPT/HCPCS: 93971

== ENCOUNTER → 2019-08-29 | Outpatient (CLI) | payer MEDICARE ==
[2017-10-28 14:53] VITALS: BP 146/62
--- NOTE | 2019-08-29 16:39 | RAD ---
Examination: Right Lower Extremity Venous Doppler Ultrasound History: Chronic deep venous thrombosis Comparison: 03/31/2019 Procedure: Francis scale, color flow 2D and spectal waveform analysis images are obtained with and without compression in the area of the common femoral vein, superficial femoral vein - femoral vein junction, main femoral vein (superficial femoral vein) and popliteal vein. Veins of the proximal calf are also imaged. Findings: There is echogenicity identified in the extending from the right proximal femoral vein to popliteal vein likely chronic partial deep venous thrombosis similar to prior exam. IMPRESSION: Unchanged chronic deep venous thrombosis from proximal superficial femoral vein to popliteal vein. Electronically signed by: Flex Colon MD (08/29/2019 4:36 PM) [id number]
== END | disposition home or self-care (01) ==
LOC: US 15:21
PROVIDERS: ATTEND Internal Medicine Hematology & Oncology
DX: C91.10 Chronic lymphocytic leukemia of B-cell type not having achieved remission (principal); I82.5Y1 Chronic embolism and thrombosis of unspecified deep veins of right proximal lower extremity
CPT/HCPCS: 93971

== ENCOUNTER → 2020-09-26 | Outpatient (CLI) | payer MEDICARE ==
[2017-10-28 14:53] VITALS: BP 146/62
[~2020-09-26] MED LIST changes: -LISI-334 PO; +LISI20TA18 PO
--- NOTE | 2020-09-26 17:10 | CARD ---
MR#: [id number] Date of Study: 09/26/2020 Ordering Physician: CHANTEL PINTO, Referring Physician: CHANTEL PINTO, Tech: Arianna Guzman [facility] APPROVED REPORT EXAM: Two-dimensional and M-mode echocardiogram with Doppler and color Doppler. Other Information Quality : FairHR: 72bpm INDICATION Congestive Heart Failure Surgery/Intervention ICD/Pacemaker: RISK FACTORS Hypertension 2D DIMENSIONS Left Atrium(2D)4.0 (1.6-4.0cm)IVSd1.2 (0.7-1.1cm) Aortic Root(2D)3.7 (2.0-3.7cm)LVDd5.9 (3.9-5.9cm) LVOT Diameter2.1 (1.8-2.4cm)PWd1.3 (0.7-1.1cm) LVDs4.1 (2.5-4.0cm)FS (%) 30.3 % SV97.0 ml Aortic Valve AoV Peak Lexa.110.3cm/sAoV VTI18.1cm AO Peak GR.4.9mmHgLVOT Peak Lexa.102.2cm/s LVOT VTI 16.92cmAO Mean GR.3mmHg CESAR (VMAX)2.75ki9CJP (VTI)3.24cm2 AI P 1/2 [id number] Mitral Valve MV E Xoldkyyr56.6cm/sMV E Peak Gr.83mmHg MV DECEL [id number] A Lvjumdvz05.8cm/s MV E Mean Gr.1mmHgMV [id number] E/A Ratio2.9MVA (PHT)3.87cm2 TDI E/Lateral E'6.9E/Medial E'20.3 Pulmonary Valve PV Peak Ujhgeaye02.8cm/sPV Peak Grad.4mmHg Tricuspid Valve TR P. Savzdkry133rz/sTR Peak Gr.38mmHg LEFT VENTRICLE The left ventricle is normal size. There is mild concentric left ventricular hypertrophy. The systoli c function is mildly to moderately impaired. The Ejection Fraction is estimated at 35%. There is glob al hypokinesis of the left ventricle. The septal wall is hypokinetic. Tissue Doppler imaging reveals moderate left ventricular diastolic dysfunction. RIGHT VENTRICLE The right ventricle is mildly to moderately dilated. There is normal right ventricular wall thickness . Systolic function is borderline reduced. There is a device lead in the right ventricle. ATRIA The left atrium is moderately dilated. The right atrium is mildly dilated. The interatrial septum is intact with no evidence for an atrial septal defect or patent foramen ovale as noted on 2-D or Dopple r imaging. AORTIC VALVE The aortic valve is thickened but opens well. Doppler and Color Flow revealed trace aortic regurgitat ion. There is no significant aortic valvular stenosis. Calculated aortic valve area is 3.38 cm2 with maximum pressure gradient of 6 mmHg and mean pressure gradient of 3 mmHg. MITRAL VALVE The mitral valve is normal in structure and function. There is no evidence of mitral valve prolapse. There is no mitral valve stenosis. Doppler and Color-flow revealed trace mitral regurgitation. TRICUSPID VALVE The tricuspid valve is normal in structure and function. Doppler and Color Flow revealed trace tricus pid regurgitation with an estimated PAP of 53 mmHg. There is no tricuspid valve stenosis. PULMONIC VALVE The pulmonary valve is normal in structure and function. Doppler and Color Flow revealed trace to mil d pulmonic valvular regurgitation. GREAT VESSELS The aortic root is borderline enlarged measuring 3.8 cm. The ascending aorta is normal in size. The I VC is dilated and collapses <50% with inspiration. PERICARDIAL EFFUSION There is no evidence of significant pericardial effusion. Critical Notification Critical Value: No <Conclusion> The left ventricle is normal size. The systolic function is mildly to moderately impaired. The Ejection Fraction is estimated at 35%. There is global hypokinesis of the left ventricle. The septal wall is hypokinetic. There is mild concentric left ventricular hypertrophy. Doppler and Color Flow revealed trace aortic regurgitation. There is no significant aortic valvular stenosis. Doppler and Color-flow revealed trace mitral regurgitation. Doppler and Color Flow revealed trace tricuspid regurgitation with an estimated PAP of 53 mmHg. Signed by : Lonny Parra MD Electronically Approved : 09/26/2020 17:10:08
== END ==
LOC: ECHO 12:50
PROVIDERS: ATTEND Internal Medicine Cardiovascular Disease
DX: I37.1 Nonrheumatic pulmonary valve insufficiency (principal); I51.7 Cardiomegaly; I50.22 Chronic systolic (congestive) heart failure
CPT/HCPCS: 93306

== ENCOUNTER 2021-04-25 12:04 | Inpatient (IN) | payer MEDICARE ==
[~2021-04-25] VITALS: Ht 177.8 cm; Wt 116.5 kg
[~2021-04-25 12:04] MED LIST changes: -LISI1TAB20 PO; +LISI1TAB39 PO
--- NOTE | 2021-04-25 12:25 | PHYS DOC ---
Past Medical History Past Medical History: Arthritis, Cancer, DVT, Hypertension, Hypothyroid, Other Additional Past Medical Histor: VENTRAL HERNIA Past Surgical History: Cholecystectomy, Knee Replacement, Other Additional Past Surgical Histo: CARDIAC CATH, L PACEMAKER, THYROIDECTOMY,BILAT KNEE Smoking Status: Never Smoker Alcohol Use: None Drug Use: None General Adult EDM: Chief Complaint: SHORTNESS OF BREATH HPI: HPI: 76-year-old male past medical history of CLL, CKD, hypertension, hypothyroidism and right lower extremity DVT, presents to the ED with his , (patient consents to his/her/their knowledge and involvement in pts' medical care), complaints of left leg pain and shortness of breath, no relief with inhaler provided by EMS. Reports no history of underlying COPD or asthma. Is requiring oxygen on arrival, not on any oxygen at baseline. Does has a h/o RLE DVT. Is not on any anticoagulants. Reports a negative stress test with Dr. Moses 2 weeks ago. Review of Systems: Review of Systems: Constitutional: Denies fever or chills. [] Eyes: Denies change in visual acuity. [] HENT: Denies nasal congestion or sore throat. [] Respiratory: Denies cough or hemoptysis Cardiovascular: Denies chest pain or edema. [] GI: Denies abdominal pain, nausea, vomiting, bloody stools or diarrhea. [] : Denies dysuria or hematuria Musculoskeletal: Denies back pain or joint pain. [] Integument: Denies rash or diaphoresis Neurologic: Denies headache, focal weakness or sensory changes. [] Endocrine: Denies polyuria or polydipsia. [] Lymphatic: Denies swollen glands. [] Psychiatric: Denies depression or anxiety. [] Heart Score: C/O Chest Pain: No Risk Factors: Risk Factors: DM, Current or recent (<one month) smoker, HTN, HLP, family history of CAD, obesity. Risk Scores: Score 0 - 3: 2.5% MACE over next 6 weeks - Discharge Home Score 4 - 6: 20.3% MACE over next 6 weeks - Admit for Clinical Observation Score 7 - 10: 72.7% MACE over next 6 weeks - Early Invasive Strategies Allergies: Allergies: Allergies Coded Allergies Type Severity Reaction Last Updated Verified No Known Drug Allergies 10/28/17 No Physical Exam: PE: Constitutional: iincreased work of breathin on arrival-considered bipap but improved with duonebs, non-toxic appearance. HENT: Normocephalic, atraumatic, Eyes: EOMI, conjunctiva normal, no discharge. Neck: Normal range of motion, supple, Cardiovascular: S1/2 present, regular rhythm Lungs & Thorax: Speaking in full sentences, bilateral equal chest rise, tachypneic and hypoxic on arrival, bilateral wheezing present Abdomen: soft, no tenderness, Skin: Warm, dry, Extremities: no cyanosis, bilateral pitting edema w/hemosiderin deposition Neurologic: Alert and oriented X 3, normal motor function, normal sensory function, no focal deficits noted. [] Psychologic: Affect normal, judgement normal, mood normal. [] EKG: EKG: wide complex rhythm 83 bpm, qtc 505, left bundle branch present, cannot appreciate any significant ST elevation or ST depression Radiology/Procedures: Radiology/Procedures: IMAGING REPORT Signed PATIENT: SURESH OLIVER ACCOUNT: [id number] : 1945 LOCATION: ER AGE: 76 SEX: M EXAM STATUS: PRE ER ORD. PHYSICIAN: ARI SALCEDO DO REASON: soa PROCEDURE: PORTABLE CHEST 1V XR CHEST 1V History: Reason: soa / Spl. Instructions: / History: Comparison: December 19, 2016 Findings: Moderate interstitial thickening with ill-defined opacities. No pleural effusion. No pneumothorax. Enlarged cardiac size. Left-sided pacemaker. Impression: 1. Moderate interstitial thickening with ill-defined opacities, may represent pulmonary edema or infection. 2. Enlarged cardiac size may represent cardiomegaly and a component of pericardial effusion is possible. Electronically signed by: Jerrod Romero DO (04/25/2021 12:58 PM) [id number] DICTATED and SIGNED BY: JERROD ROMERO DO DATE: 04/25/21 1257 IMAGING REPORT Signed PATIENT: SURESH OLIVER ACCOUNT: [id number] : 1945 LOCATION: ER AGE: 76 SEX: M EXAM STATUS: REG ER ORD. PHYSICIAN: ARI SALCEDO DO REASON: RT Leg DVT; left leg pain PROCEDURE: VENOUS LOWER EXT BILATERAL US BILATERAL LOWEREXTREMITY VENOUS DOPPLER History: Reason: RT Leg DVT; left leg pain / Spl. Instructions: / History: Comparison: None. Technique: Multiple longitudinal and transverse high resolution real-time images of the venous system of bilateral lower extremity were obtained with color and Doppler sampling. Findings: Mild hyperechogenicity within the right mid and distal superficial femoral vein indicating prior thrombus. The veins are compressible. Bilateral posterior tibial veins not well evaluated due to subcutaneous edema. Peroneal veins are patent. Impression: 1. No evidence of acute deep vein thrombosis. 2. Sequelae of prior thrombus within the right mid and distal superficial femoral vein. Electronically signed by: Jerrod Romero DO (04/25/2021 1:51 PM) [id number] DICTATED and SIGNED BY: JERROD ROMERO DO DATE: 04/25/21 1348 IMAGING REPORT Signed PATIENT: SURESH OLIVER ACCOUNT: [id number] : 1945 LOCATION: ER AGE: 76 SEX: M EXAM STATUS: REG ER ORD. PHYSICIAN: ARI SALCEDO DO REASON: soa PROCEDURE: CT CHEST WO CONTRAST Exam: CT of chest without contrast INDICATION: Short of air TECHNIQUE: Sequential axial images through the chest obtained without IV contrast. Sagittal and coronal reformatted images were reconstructed from the axial data and reviewed. Exposure: One or more of the following in the visualized dose reduction techniques were utilized for this examination: 1. Automated exposure control 2. Adjustment of the MA and/or KV according to patient size 3. Use of iterative of reconstructive technique Comparisons: 10/06/2017 FINDINGS: Visualized portions of the thyroid are unremarkable. No enlarged mediastinal lymph nodes are identified. Heart size is normal. No pericardial effusion. Thoracic aorta has normal course and caliber. Pulmonary artery is not enlarged. Airways are patent. No consolidation or pneumothorax. Strandy opacities at dependent portion lungs likely representing atelectasis. No consolidation or pneumothorax. No pleural effusion or thickening. Visualized upper abdomen is unremarkable. No suspicious osseous lesions or acute fractures. IMPRESSION: No acute process identified within the chest Electronically signed by: Dayron Mosley MD (04/25/2021 3:41 PM) [facility] DICTATED and SIGNED BY: DAYRON MOSLEY MD DATE: 04/25/21 1518 Course & Med Decision Making: Course & Med Decision Making Pertinent Labs and Imaging studies reviewed. (See chart for details) Concern for congestive heart failure with questionable COPD (hypercarbia present) and chronic kidney disease, requiring nasal cannula.. Patient afebrile and hemodynamically stable. After steroids and breathing treatments patient's tachypnea resolved. IV Lasix given in ED. X-ray with possible pericardial effusion. CT of the chest without contrast concerning for atelectasis. Will admit to medicine for further medical management. Patient stable time of admission and him and his agrees with this plan. I have spoken with the patient and/or caregivers. I have explained the patient's condition, diagnosis and treatment plan based on the information available to me at this time. I have answered the patient's and/or caregivers questions and answered any concerns. The patient and/or caregivers have as good an understanding of the patient's diagnosis, condition and treatment plan as can be expected at this point. The patient has been stabilized within the capability of the emergency department. The patient will be transported for further care and management or will be moved to an observation or inpatient service. I have communicated with the staff or medical practitioner taking over this patient's care. Shonda Disclaimer: Shonda Disclaimer: This electronic medical record was generated, in whole or in part, using a voice recognition dictation system. Departure Departure Impression: Primary Impression: CHF (congestive heart failure) Additional Impressions: CKD (chronic kidney disease) Hypoxemia requiring supplemental oxygen Disposition: ADMITTED INPATIENT Admitting Physician: Josiah Ceballos Condition: STABLE Referrals: JOSIAH CEBALLOS MD (PCP) ARI SALCEDO DO Apr 25, 2021 12:25
[2021-04-25] MEDS ORDERED: DEXAMETHASONE SOD PHOS 20 MG/5 ML VIAL. IV ONE (12:30)
[2021-04-25] MEDS ORDERED: IPRATRPIUM/ALBUTEROL 0.5/2.5MG 3 ML NEBU. NEB ONE (12:30)
[2021-04-25 12:37] LABS: ISTAT BE VENOUS 8 mmol/L (0-3); ISTAT HCO3 VEN 35 mmol/L (24-28); ISTAT PCO2 VEN 80 mmHg (41-51); ISTAT PH VEN 7.25 (7.32-7.42); ISTAT PO2 VEN 25 mmHg (20-40); ISTAT SAT O2 VEN 33 %; ISTAT TCO2 VEN 38 mmol/L (21-32)
--- NOTE | 2021-04-25 13:00 | RAD ---
XR CHEST 1V History: Reason: soa / Spl. Instructions: / History: Comparison: December 19, 2016 Findings: Moderate interstitial thickening with ill-defined opacities. No pleural effusion. No pneumothorax. En larged cardiac size. Left-sided pacemaker. Impression: 1. Moderate interstitial thickening with ill-defined opacities, may represent pulmonary edema or inf ection. 2. Enlarged cardiac size may represent cardiomegaly and a component of pericardial effusion is possi ble. Electronically signed by: Jerrod Romero DO (04/25/2021 12:58 PM) [id number]
[2021-04-25 13:31] LABS: CALCIUM 8.6 mg/dL (8.5-10.1); CREATININE 1.8 mg/dL (0.7-1.3); POTASSIUM 3.6 mmol/L (3.5-5.1)
[2021-04-25 13:36] LABS: ALBUMIN 4.3 g/dL (3.4-5.0); ALBUMIN/GLOBULIN RATIO 1.7 (1.0-1.7); MAGNESIUM 2.1 mg/dL (1.8-2.4); TOTAL BILIRUBIN 1.6 mg/dL (0.2-1.0); TOTAL PROTEIN 6.8 g/dL (6.4-8.2)
[2021-04-25 13:41] LABS: BASO % 0 % (0-3); EOS % 0 % (0-3); HEMATOCRIT 51.5 % (39.0-53.0); HEMOGLOBIN 16.8 g/dL (13.0-17.5); LYMPH # 0.5 x10^3/uL (1.0-4.8); LYMPH % 4 % (24-48); MEAN CORPUSCULAR HEMOGLOBIN 30 pg (25-35); MEAN CORPUSCULAR HGB CONC 33 g/dL (31-37); MEAN CORPUSCULAR VOLUME 92 fL (79-100); MONO # 0.6 x10^3/uL (0.0-1.1); MONO % 6 % (0-9); NEUT # 9.8 x10^3/uL (1.8-7.7); NEUT % 90 % (31-73); PLATELET COUNT 102 x10^3/uL (140-400); RED BLOOD COUNT 5.61 x10^6/uL (4.30-5.70); RED CELL DISTRIBUTION WIDTH 15.1 % (11.5-14.5); WHITE BLOOD COUNT 10.9 x10^3/uL (4.0-11.0)
--- NOTE | 2021-04-25 13:54 | RAD ---
US BILATERAL LOWEREXTREMITY VENOUS DOPPLER History: Reason: RT Leg DVT; left leg pain / Spl. Instructions: / History: Comparison: None. Technique: Multiple longitudinal and transverse high resolution real-time images of the venous system of bilateral lower extremity were obtained with color and Doppler sampling. Findings: Mild hyperechogenicity within the right mid and distal superficial femoral vein indicating prior thro mbus. The veins are compressible. Bilateral posterior tibial veins not well evaluated due to subcutan eous edema. Peroneal veins are patent. Impression: 1. No evidence of acute deep vein thrombosis. 2. Sequelae of prior thrombus within the right mid and distal superficial femoral vein. Electronically signed by: Jerrod Romero DO (04/25/2021 1:51 PM) [id number]
[2021-04-25] MEDS ORDERED: FUROSEMIDE 40 MG/4 ML VIAL. IVP ONE (15:00)
--- NOTE | 2021-04-25 15:43 | RAD ---
Exam: CT of chest without contrast INDICATION: Short of air TECHNIQUE: Sequential axial images through the chest obtained without IV contrast. Sagittal and coron al reformatted images were reconstructed from the axial data and reviewed. Exposure: One or more of the following in the visualized dose reduction techniques were utilized for this examination: 1. Automated exposure control 2. Adjustment of the MA and/or KV according to patient size 3. Use of iterative of reconstructive technique Comparisons: 10/06/2017 FINDINGS: Visualized portions of the thyroid are unremarkable. No enlarged mediastinal lymph nodes are identifi ed. Heart size is normal. No pericardial effusion. Thoracic aorta has normal course and caliber. Pulmonar y artery is not enlarged. Airways are patent. No consolidation or pneumothorax. Strandy opacities at dependent portion lungs li tika representing atelectasis. No consolidation or pneumothorax. No pleural effusion or thickening. Visualized upper abdomen is unremarkable. No suspicious osseous lesions or acute fractures. IMPRESSION: No acute process identified within the chest Electronically signed by: Dayron Garrido MD (04/25/2021 3:41 PM) KEE
[2021-04-25 15:48] LABS: AMPHETAMINE/METHAMPHETAMINE NEG (NEG); BARBITURATES NEG (NEG); BENZODIAZEPINES NEG (NEG); CANNABINOIDS NEG (NEG); COCAINE NEG (NEG); METHADONE NEG (NEG); OPIATES POS (NEG); PHENCYCLIDINE NEG (NEG)
--- NOTE | 2021-04-25 17:28 | EKG ---
[address] [place] [address] Test Date: 2021-04-25 Test Time: 12:37:22 Pat Name: SURESH OLIVER Department: Room: [facility] Gender: M [employer]: : 1945 Requested By: ARI SALCEDO Order Number: [id number] Reading MD: Lonny Parra Measurements Intervals [place] Rate: 83 P: MT: QRS: -83 QRSD: 324 T: 103 QT: 424 QTc: 505 Interpretive Statements PROBABLE V PACED Electronically Signed On 04-27-2021 15:06:28 CDT by Lonny Parra
[2021-04-25] MEDS ORDERED: FURO40TA4 PO (17:56)
[2021-04-25] MEDS ORDERED: CARV3.1210 PO (17:56)
[2021-04-25] MEDS ORDERED: LISI10TA16 PO (17:56)
[2021-04-25] MEDS ORDERED: ALPR0.5T6 PO (17:59)
[2021-04-25 20:09] VITALS: BP 138/68
[2021-04-25 23:18] VITALS: BP 126/72
[2021-04-25] MEDS: HYDROcodone/APAP 7.5/325MG 1 TAB TABLET PO PRN (23:21)
[2021-04-26 03:06] VITALS: BP 112/61
[2021-04-26] MEDS: LEVOTHYROXINE 150 MCG TABLET PO SCH (05:16)
[2021-04-26 07:00] VITALS: BP 122/93
[2021-04-26] MEDS: CARVEDILOL 3.125 MG TABLET. PO SCH ×2 (08:33→17:12)
[2021-04-26] MEDS: ALLOPURINOL 300 MG TABLET. PO SCH (08:33)
[2021-04-26] MEDS: FUROSEMIDE 40 MG TABLET. PO SCH (08:34)
[2021-04-26] MEDS ORDERED: LISINOPRIL 10 MG TABLET PO SCH (09:00)
[2021-04-26 11:00] VITALS: BP 134/64
[2021-04-26] MEDS ORDERED: FUROSEMIDE 40 MG/4 ML VIAL. IVP ONE (13:15)
--- NOTE | 2021-04-26 13:37 | HP ---
DATE OF SERVICE: 04/26/2021 ADMIT DATE: 04/25/2021 CHIEF COMPLAINT AND HISTORY OF PRESENT ILLNESS: This 76-year-old male patient of Dr. Gamez with extensive past medical history including CLL, chronic kidney disease, hypertension, hypothyroidism, cardiomyopathy, right lower extremity DVT, presented to the Emergency Room with increasing shortness of breath, which he describes as present over the last couple of months or so, but getting worse. He states he had a normal stress test a couple of weeks prior and I did review it, it was back in end of March, which was nonischemic, which showed an ejection fraction of 23%. BNP was elevated on admission at [address] chest showed no acute changes. He cannot give a history of orthopnea as he does not lie flat because of his back and has it in years. According to his sister, he sleeps in a recliner chair normally. He was significantly better this morning after some pulmonary toilet as well as IV Lasix. IV Lasix will be repeated as it would seem that this is most likely congestive heart failure in nature. Confusing as some blood gas, but it is venous showing some elevated CO2, but probably given the fact his venous distention is nonsignificant because pO2 was only 25. PAST MEDICAL HISTORY: Remarkable for arthritis, CLL, DVT, hypertension, hypothyroidism, also venous stasis edema. PAST SURGICAL HISTORY: Remarkable for ventral hernia, cholecystectomy, left knee replacement, left pacemaker for bradycardia, thyroidectomy, bilateral knee replacements. MEDICATIONS: Brought with the patient listed on computer have been addressed. ALLERGIES: He has no known drug allergies. SOCIAL HISTORY: He is a lifetime nonsmoker, nondrinker, does not use drugs. Lives at home alone. FAMILY HISTORY: Noncontributory. REVIEW OF SYSTEMS: As mentioned above. PHYSICAL EXAMINATION: GENERAL: He is a well-developed, well-nourished white male, awake, alert, in no acute distress at the time of my examination. VITAL SIGNS: Stable. He is afebrile. HEAD, EYES, EARS, NOSE AND THROAT: Unremarkable. NECK: Supple, without adenopathy or thyromegaly. CHEST: Reveals minimal wheezing expiratory molina, but otherwise normal. HEART: Regular rate and rhythm without S3, S4 or murmur. ABDOMEN: Soft, nontender, without hepatosplenomegaly or masses. EXTREMITIES: Reveal trace to 1+ edema with venous stasis changes. NEUROLOGIC: He is intact. DIAGNOSTIC DATA: Chest x-ray shows moderate interstitial thickening with ill-defined opacities that could represent pulmonary edema or infection and enlarged cardiac size. He did have a right lower extremity venous Doppler showing no evidence of clot and again a CT chest showing no acute process within the chest. ASSESSMENT: 1. Shortness of breath, acute hypoxic respiratory failure due to acute on chronic systolic heart failure. 2. Multiple other problems listed above. PLAN: Diuresis. Follow electrolytes. We will likely need medication adjustments prior to discharge. It appears that his blood pressures would tolerate Entresto and we will add that currently. CYNTHIA DR: Arsh TID: [id number]
[2021-04-26 15:00] VITALS: BP 119/69
--- NOTE | 2021-04-26 17:09 | PDOC2 ---
CONSULT Date of Consult Date of Consult DATE: 04/26/21 TIME: 17:02 Reason for Consult Reason for Consult: Increasing shortness of breath Referring Physician Referring Physician: Dr. Snell Identification/Chief Complaint Chief Complaint Shortness of breath Source Source: Chart review, Patient History of Present Illness Reason for Visit: The patient is a 76-year-old male with a history of a cardiomyopathy who developed episodes of increasing shortness of breath and presented to the emergency room. Initial testing included a CT scan of the chest without contrast that showed no acute processes. A chest x-ray showed ill-defined opacities. A lower extremity ultrasound showed no DVTs. EKG shows a probable paced rhythm. The patient is followed by [facility] for a nonischemic cardiomyopathy. He had a Lexiscan MPI test on 04/03/2021 that showed an inferior fixed inferior defect with an ejection fraction of 23%. A more recent echocardi ogram showed an ejection fraction in the low 40% range. The patient has been continued on a pacemaker secondary to complete heart block. Of note transition to an ICD has been discussed with the patient but he does not wish to do this. After treatment overnight the patient is feeling somewhat better today. His shortness of breath has improved. He denies chest pain or lightheadedness. Past Medical History Cardiovascular: CHF, HTN, Hyperlipidemia, Other (Permanent pacemaker for heart block, lower extremity DVTs) Heme/Onc: Other (CLL) Psych: Other Musculoskeletal: Osteoarthritis Rheumatologic: Gout Renal/: Chronic renal insuff Endocrine: Hypothyroidism Past Surgical History Past Surgical History: Pacemaker, Cholecystectomy, Hernia Repair, Total knee replacement, Other (Thyroidectomy) Family History Family History: Heart Disease Social History No ALCOHOL: none Drugs: None Current Problem List Problem List Problems Medical Problems: (1) CHF (congestive heart failure) Status: Acute (2) CKD (chronic kidney disease) Status: Acute (3) Hypoxemia requiring supplemental oxygen Status: Acute Current Medications Current Medications Current Medications Dexamethasone Sodium Phosphate (Decadron) 10 mg 1X ONCE IV Last administered on 04/25/21at 13:32; Start 04/25/21 at 12:30; Stop 04/25/21 at 12:31; Status DC Albuterol/ Ipratropium (Duoneb) 9 ml 1X ONCE NEB Last administered on 04/25/21at 13:46; Start 04/25/21 at 12:30; Stop 04/25/21 at 12:31; Status DC Furosemide (Lasix) 40 mg 1X ONCE IVP Last administered on 04/25/21at 15:29; Start 04/25/21 at 15:00; Stop 04/25/21 at 15:01; Status DC Allopurinol (Zyloprim) 300 mg DAILY PO Last administered on 04/26/21at 08:33; Start 04/26/21 at 09:00 Alprazolam (Xanax) 0.5 mg PRN QHS PRN PO ANXIETY; Start 04/25/21 at 19:00 Carvedilol (Coreg) 3.125 mg BIDWMEALS PO Last administered on 04/26/21at 08:33; Start 04/26/21 at 08:00 Furosemide (Lasix) 40 mg DAILY PO Last administered on 04/26/21at 08:34; Start 04/26/21 at 09:00 Acetaminophen/ Hydrocodone Bitart (Lortab 7.5/325) 1 tab PRN Q6HRS PRN PO PAIN Last administered on 04/25/21at 23:21; Start 04/25/21 at 19:00 Levothyroxine Sodium (Synthroid) 150 mcg DAILY06 PO Last administered on 04/26/21at 05:16; Start 04/26/21 at 06:00 Lisinopril (Prinivil) 10 mg DAILY PO Last administered on 04/26/21at 08:34; Start 04/26/21 at 09:00; Stop 04/26/21 at 12:58; Status DC Furosemide (Lasix) 40 mg 1X ONCE IVP Last administered on 04/26/21at 14:00; Start 04/26/21 at 13:15; Stop 04/26/21 at 13:16; Status DC Active Scripts Active Reported Alprazolam 0.5 Mg Tablet 1 Tab PO PRN QHS PRN Furosemide 40 Mg Tablet 1 Tab PO DAILY Carvedilol (Carvedilol) 3.125 Mg Tablet 3.125 Mg PO BIDWMEALS Lisinopril 10 Mg Tablet 1 Tab PO DAILY Allopurinol 300 Mg Tablet 300 Mg PO DAILY Lortab 7.5-325 mg Tablet (Hydrocodone/Acetaminophen) 1 Each Tablet 1 Tab PO PRN Q6HRS PRN Levothyroxine Sodium 150 Mcg Tablet 1 Tab PO DAILY Allergies Allergies: Coded Allergies: No Known Drug Allergies (Unverified , 10/28/17) ROS General: YES: Fatigue Respiratory: YES: Shortness of breath, SOB with excertion Physical Exam General: mild distress HEENT: Atraumatic Lungs: Other (Decreased breath sounds) Heart: Regular rate Abdomen: Normal bowel sounds Vitals VITALS Vital Signs Date Time Temp Pulse Resp B/P (MAP) Pulse Ox O2 Delivery O2 Flow Rate FiO2 04/26/21 15:00 97.5 82 18 119/69 (86) 98 Nasal Cannula 97.5 04/26/21 08:00 2.0 Labs Labs Laboratory Tests Test 04/25/21 12:15 04/25/21 12:33 04/25/21 15:17 04/25/21 15:30 White Blood Count 10.9 x10^3/uL (4.0-11.0) Red Blood Count 5.61 x10^6/uL (4.30-5.70) Hemoglobin 16.8 g/dL (13.0-17.5) Hematocrit 51.5 % (39.0-53.0) Mean Corpuscular Volume 92 fL (79-100) Mean Corpuscular Hemoglobin 30 pg (25-35) Mean Corpuscular Hemoglobin Concent 33 g/dL (31-37) Red Cell Distribution Width 15.1 % (11.5-14.5) Platelet Count 102 x10^3/uL (140-400) Neutrophils (%) (Auto) 90 % (31-73) Lymphocytes (%) (Auto) 4 % (24-48) Monocytes (%) (Auto) 6 % (0-9) Eosinophils (%) (Auto) 0 % (0-3) Basophils (%) (Auto) 0 % (0-3) Neutrophils # (Auto) 9.8 x10^3/uL (1.8-7.7) Lymphocytes # (Auto) 0.5 x10^3/uL (1.0-4.8) Monocytes # (Auto) 0.6 x10^3/uL (0.0-1.1) Eosinophils # (Auto) 0.0 x10^3/uL (0.0-0.7) Basophils # (Auto) 0.0 x10^3/uL (0.0-0.2) Sodium Level 144 mmol/L (136-145) Potassium Level 3.6 mmol/L (3.5-5.1) Chloride Level 101 mmol/L (98-107) Carbon Dioxide Level 33 mmol/L (21-32) Anion Gap 10 (6-14) Blood Urea Nitrogen 28 mg/dL (8-26) Creatinine 1.8 mg/dL (0.7-1.3) Estimated GFR (Cockcroft-Gault) 37.0 BUN/Creatinine Ratio 16 (6-20) Glucose Level 123 mg/dL (70-99) Calcium Level 8.6 mg/dL (8.5-10.1) Magnesium Level 2.1 mg/dL (1.8-2.4) Total Bilirubin 1.6 mg/dL (0.2-1.0) Aspartate Amino Transf (AST/SGOT) 22 U/L (15-37) Alanine Aminotransferase (ALT/SGPT) 31 U/L (16-63) Alkaline Phosphatase 102 U/L (46-116) Troponin I High Sensitivity 34 ng/L (4-75) 111 ng/L (4-75) NQ-Jib-V-Type Natriuretic Peptide 3347 pg/mL (0-449) Total Protein 6.8 g/dL (6.4-8.2) Albumin 4.3 g/dL (3.4-5.0) Albumin/Globulin Ratio 1.7 (1.0-1.7) Lipase 87 U/L (73-393) Bedside Venous pH 7.25 (7.32-7.42) Bedside Venous pCO2 80 mmHg (41-51) Bedside Venous pO2 25 mmHg (20-40) Venous Blood HCO3 35 mmol/L (24-28) POC Venous O2 Saturation (Jose Francisco) 33 % Bedside FiO2 21.0 Urine Opiates Screen Pos (NEG) Urine Methadone Screen Neg (NEG) Urine Barbiturates Neg (NEG) Urine Phencyclidine Screen Neg (NEG) Urine Amphetamine/Methamphetamine Neg (NEG) Urine Benzodiazepines Screen Neg (NEG) Urine Cocaine Screen Neg (NEG) Urine Cannabinoids Screen Neg (NEG) Urine Ethyl Alcohol Neg (NEG) Test 04/25/21 16:15 04/25/21 22:30 04/26/21 02:00 SARS-CoV-2 Antigen (Rapid) Negative (NEGATIVE) Troponin I High Sensitivity 123 ng/L (4-75) 90 ng/L (4-75) Laboratory Tests Test 04/25/21 22:30 04/26/21 02:00 Troponin I High Sensitivity 123 ng/L (4-75) 90 ng/L (4-75) Images Images As above. Assessment/Plan Assessment/Plan 1. Acute on chronic systolic heart failure. Patient is feeling better post diuresis. We will continue baseline meds and diuresis with monitoring of lab. Recent echo and nuclear stress test as above shows no evidence of reversible ischemia and poor LV function. 2. Permanent pacemaker secondary to heart block. Recent interrogations have shown normal functioning. EKG shows a paced rhythm. 3. Hypertension. Continue to monitor will adjust as needed. 4. History of lower extremity DVTs. Updated lower extremity study however shows no DVTs at this time. 5. Chronic kidney disease. Continuing to monitor lab. 6. History of CLL. Thank you for allowing us to participate in the care of your patient. DANIELE COLLAZO MD Apr 26, 2021 17:09
[2021-04-26 19:00] VITALS: BP 120/65
[2021-04-26] MEDS: HYDROcodone/APAP 7.5/325MG 1 TAB TABLET PO PRN (22:16)
[2021-04-26 22:40] VITALS: BP 139/73
[2021-04-27 03:10] VITALS: BP 121/61
[2021-04-27 04:48] LABS: CALCIUM 8.5 mg/dL (8.5-10.1); CREATININE 2.1 mg/dL (0.7-1.3); GFR 30.9; POTASSIUM 3.6 mmol/L (3.5-5.1)
[2021-04-27] MEDS: LEVOTHYROXINE 150 MCG TABLET PO SCH (05:16)
[2021-04-27 06:45] VITALS: BP 137/72
[2021-04-27] MEDS: FUROSEMIDE 40 MG TABLET. PO SCH (08:33)
[2021-04-27] MEDS: ALLOPURINOL 300 MG TABLET. PO SCH (08:34)
[2021-04-27] MEDS: CARVEDILOL 3.125 MG TABLET. PO SCH ×2 (08:34→17:15)
[2021-04-27 11:00] VITALS: BP 124/70
[2021-04-27] MEDS: LISINOPRIL 10 MG TABLET PO SCH (11:10)
[2021-04-27] MEDS: HYDROcodone/APAP 7.5/325MG 1 TAB TABLET PO PRN ×2 (11:56→18:31)
--- NOTE | 2021-04-27 12:40 | PN ---
DATE: 04/27/2021 DAILY PROGRESS NOTE LOCATION: He is in room 662. SUBJECTIVE: This 76-year-old male hospitalized with shortness of breath, felt to be most likely due to congestive heart failure at this point in time. He has had diuresis since admission and his breathing is much improved. However, renal function has worsened with the diuresis with his BUN up to 44 and creatinine 2.1 this morning compared to 28 and 1.8 on admission, but I think this is something we are going to have to take to keep him able to breathe. He has a known history of severe cardiomyopathy with ejection fraction of 23%. I brought up Entresto with him this morning, was planning on starting it and the patient states that he has looked before and unable to afford it as his senior games technician wanted him to try it. OBJECTIVE: VITAL SIGNS: Stable. He is afebrile. O2 sats are 100% on 2 liters and we will try to taper his oxygen today. CHEST: Distant breath sounds, but clear. HEART: Regular rate and rhythm. ABDOMEN: Benign. EXTREMITIES: He does have some very minor venous stasis edema. ASSESSMENT: 1. Acute on chronic systolic heart failure, improving. 2. Chronic kidney disease with worsening due to diuresis. 3. Inability to afford Entresto. PLAN: Back on BRIANDA inhibitor. His sister will check with Entresto ____ to see if he would qualify for patient assistance. We will recheck renal function in the morning and taper oxygen and likely the patient could be discharged as soon as tomorrow. YARY/VITO/GABRIELLE DR: YARY/adonay TID: [id number]
--- NOTE | 2021-04-27 13:02 | PDOC ---
PROGRESS NOTES Date of Service DATE: 04/27/21 TIME: 13:00 Subjective Subjective Patient seen and examined He is feeling mildly better today. Objective Objective Vital Signs Date Time Temp Pulse Resp B/P (MAP) Pulse Ox O2 Delivery O2 Flow Rate FiO2 04/27/21 12:26 16 Room Air 04/27/21 11:10 71 124/70 04/27/21 11:00 98.1 95 98.1 04/27/21 06:45 2.0 Intake and Output 04/27/21 07:00 Intake Total 1600 ml Output Total 1350 ml Balance 250 ml Intake Oral 1600 ml Output Urine Total 1350 ml Physical Exam Abdomen: Normal bowel sounds Heart: Regular rate General: mild distress Lungs: Other (Mildly decreased breath sounds) Assessment Assessment Problems Medical Problems: (1) CHF (congestive heart failure) Status: Acute (2) CKD (chronic kidney disease) Status: Acute (3) Hypoxemia requiring supplemental oxygen Status: Acute 1. Acute on chronic systolic heart failure. The patient continues to feel better. We will continue baseline meds and diuresis with monitoring of lab. Recent echo and nuclear stress test as above shows no evidence of reversible ischemia and poor LV function. 2. Permanent pacemaker secondary to heart block. Recent interrogations have shown normal functioning. EKG shows a paced rhythm. 3. Hypertension. Continue to monitor will adjust as needed. 4. History of lower extremity DVTs. Updated lower extremity study however shows no DVTs at this time. 5. Chronic kidney disease. Continuing to monitor lab. 6. History of CLL. Comment Review of Relevant I have reviewed the following items ana maría (where applicable) has been applied. Labs Laboratory Tests Test 04/25/21 15:17 04/25/21 15:30 04/25/21 16:15 04/25/21 22:30 Troponin I High Sensitivity 111 ng/L (4-75) 123 ng/L (4-75) Urine Opiates Screen Pos (NEG) Urine Methadone Screen Neg (NEG) Urine Barbiturates Neg (NEG) Urine Phencyclidine Screen Neg (NEG) Urine Amphetamine/Methamphetamine Neg (NEG) Urine Benzodiazepines Screen Neg (NEG) Urine Cocaine Screen Neg (NEG) Urine Cannabinoids Screen Neg (NEG) Urine Ethyl Alcohol Neg (NEG) SARS-CoV-2 Antigen (Rapid) Negative (NEGATIVE) Test 04/26/21 02:00 04/27/21 04:00 Troponin I High Sensitivity 90 ng/L (4-75) Sodium Level 141 mmol/L (136-145) Potassium Level 3.6 mmol/L (3.5-5.1) Chloride Level 99 mmol/L (98-107) Carbon Dioxide Level 35 mmol/L (21-32) Anion Gap 7 (6-14) Blood Urea Nitrogen 44 mg/dL (8-26) Creatinine 2.1 mg/dL (0.7-1.3) Estimated GFR (Cockcroft-Gault) 30.9 Glucose Level 109 mg/dL (70-99) Calcium Level 8.5 mg/dL (8.5-10.1) Laboratory Tests Test 04/27/21 04:00 Sodium Level 141 mmol/L (136-145) Potassium Level 3.6 mmol/L (3.5-5.1) Chloride Level 99 mmol/L (98-107) Carbon Dioxide Level 35 mmol/L (21-32) Anion Gap 7 (6-14) Blood Urea Nitrogen 44 mg/dL (8-26) Creatinine 2.1 mg/dL (0.7-1.3) Estimated GFR (Cockcroft-Gault) 30.9 Glucose Level 109 mg/dL (70-99) Calcium Level 8.5 mg/dL (8.5-10.1) Medications Current Medications Dexamethasone Sodium Phosphate (Decadron) 10 mg 1X ONCE IV Last administered on 04/25/21at 13:32; Start 04/25/21 at 12:30; Stop 04/25/21 at 12:31; Status DC Albuterol/ Ipratropium (Duoneb) 9 ml 1X ONCE NEB Last administered on 04/25/21at 13:46; Start 04/25/21 at 12:30; Stop 04/25/21 at 12:31; Status DC Furosemide (Lasix) 40 mg 1X ONCE IVP Last administered on 04/25/21at 15:29; Start 04/25/21 at 15:00; Stop 04/25/21 at 15:01; Status DC Allopurinol (Zyloprim) 300 mg DAILY PO Last administered on 04/27/21at 08:34; Start 04/26/21 at 09:00 Alprazolam (Xanax) 0.5 mg PRN QHS PRN PO ANXIETY; Start 04/25/21 at 19:00 Carvedilol (Coreg) 3.125 mg BIDWMEALS PO Last administered on 04/27/21at 08:34; Start 04/26/21 at 08:00 Furosemide (Lasix) 40 mg DAILY PO Last administered on 04/27/21at 08:33; Start 04/26/21 at 09:00 Acetaminophen/ Hydrocodone Bitart (Lortab 7.5/325) 1 tab PRN Q6HRS PRN PO PAIN Last administered on 04/27/21at 11:56; Start 04/25/21 at 19:00 Levothyroxine Sodium (Synthroid) 150 mcg DAILY06 PO Last administered on 04/27/21at 05:16; Start 04/26/21 at 06:00 Lisinopril (Prinivil) 10 mg DAILY PO Last administered on 04/26/21at 08:34; Start 04/26/21 at 09:00; Stop 04/26/21 at 12:58; Status DC Furosemide (Lasix) 40 mg 1X ONCE IVP Last administered on 04/26/21at 14:00; S tart 04/26/21 at 13:15; Stop 04/26/21 at 13:16; Status DC Lisinopril (Prinivil) 10 mg DAILY PO Last administered on 04/27/21at 11:10; Start 04/27/21 at 11:00 Active Scripts Active Reported Alprazolam 0.5 Mg Tablet 1 Tab PO PRN QHS PRN Furosemide 40 Mg Tablet 1 Tab PO DAILY Carvedilol (Carvedilol) 3.125 Mg Tablet 3.125 Mg PO BIDWMEALS Lisinopril 10 Mg Tablet 1 Tab PO DAILY Allopurinol 300 Mg Tablet 300 Mg PO DAILY Lortab 7.5-325 mg Tablet (Hydrocodone/Acetaminophen) 1 Each Tablet 1 Tab PO PRN Q6HRS PRN Levothyroxine Sodium 150 Mcg Tablet 1 Tab PO DAILY Vitals/I & O Vital Sign - Last 24 Hours 04/26/21 04/26/21 04/26/21 04/26/21 15:00 17:12 19:00 20:00 Temp 97.5 97.6 97.5 97.6 Pulse 82 62 75 Resp 18 18 B/P (MAP) 119/69 (86) 147/71 120/65 (83) Pulse Ox 98 100 O2 Delivery Nasal Cannula Nasal Cannula Nasal Cannula O2 Flow Rate 2.0 2.0 04/26/21 04/26/21 04/26/21 04/27/21 22:16 22:40 22:46 03:10 Temp 97.5 97.8 97.5 97.8 Pulse 67 75 Resp 14 18 14 18 B/P (MAP) 139/73 (95) 121/61 (81) Pulse Ox 100 100 100 100 O2 Delivery Nasal Cannula Nasal Cannula Nasal Cannula Nasal Cannula O2 Flow Rate 2.0 2.0 2.0 2.0 04/27/21 04/27/21 04/27/21 04/27/21 06:45 08:34 11:00 11:10 Temp 97.7 98.1 97.7 98.1 Pulse 74 71 71 71 Resp 20 18 B/P (MAP) 137/72 (93) 137/72 124/70 (88) 124/70 Pulse Ox 100 95 O2 Delivery Nasal Cannula Room Air O2 Flow Rate 2.0 04/27/21 04/27/21 11:56 12:26 Resp 18 16 O2 Delivery Room Air Intake and Output 04/26/21 04/26/21 04/27/21 15:00 23:00 07:00 Intake Total 600 ml 1000 ml Output Total 200 ml 600 ml 550 ml Balance 400 ml -600 ml 450 ml Justifications for Admission Other Justification DANIELE COLLAZO MD Apr 27, 2021 13:02
--- NOTE | 2021-04-27 14:46 | CARD ---
MR#: [id number] Date of Study: 04/27/2021 Ordering Physician: LONNY PARRA, Referring Physician: LONNY PARRA, Tech: Sukhwinder Hyde [facility] APPROVED REPORT EXAM: Two-dimensional and M-mode echocardiogram with Doppler and color Doppler. Other Information Quality : AverageHR: 67bpm Rhythm : Pacemaker INDICATION Congestive Heart Failure Surgery/Intervention Pacemaker: RISK FACTORS Hypertension Hyperlipidemia CHF 2D DIMENSIONS Left Atrium(2D)5.2 (1.6-4.0cm)IVSd1.3 (0.7-1.1cm) Aortic Root(2D)4.4 (2.0-3.7cm)LVDd6.1 (3.9-5.9cm) LVOT Diameter2.5 (1.8-2.4cm)PWd1.3 (0.7-1.1cm) LVDs5.2 (2.5-4.0cm)FS (%) 15.4 % SV59.9 ml Aortic Valve AoV Peak Lexa.144.8cm/sAoV VTI26.6cm AO Peak GR.8.4mmHgLVOT Peak Lexa.101.5cm/s AO Mean GR.4mmHgAVA (VMAX)3.33cm2 AI P 1/2 [id number] Mitral Valve MV E Ihastobn16.6cm/sMV E Peak Gr.2mmHg MV DECEL [id number] A Divkmahi19.5cm/s MV E Mean Gr.1mmHgE/A Ratio2.0 Pulmonary Valve PV Peak Zlnfbqja11.7cm/s Tricuspid Valve TR P. [id number]/sTR Peak Gr.31mmHg LEFT VENTRICLE The Left Ventricle is mildly dilated. There is mild concentric left ventricular hypertrophy. The ejec tion fraction is moderately to severely impaired. LV ejection fraction of 30 to 35%. There is global hypokinesis of the left ventricle. Transmitral Doppler flow pattern is Grade II-pseudonormal filling dynamics. No left ventricle thrombus noted on this study. There is no ventricular septal defect visua lized. There is no left ventricular aneurysm. There is no mass noted in the left ventricle. RIGHT VENTRICLE The right ventricle is normal size. There is normal right ventricular wall thickness. The right ventr icular systolic function is normal. A device lead is noted in the RV. ATRIA The left atrium is mild to moderately dilated. The right atrium is mildly dilated. The interatrial se ptum is intact with no evidence for an atrial septal defect or patent foramen ovale as noted on 2-D o r Doppler imaging. AORTIC VALVE The aortic valve is mildly sclerotic. Doppler and Color Flow revealed trace to mild aortic regurgitat ion. There is no significant aortic valvular stenosis. There is no aortic valvular vegetation. MITRAL VALVE The mitral valve is calcified but opens well. There is no evidence of mitral valve prolapse. There is no mitral valve stenosis. Doppler and Color-flow revealed moderate mitral regurgitation. TRICUSPID VALVE The tricuspid valve is normal in structure and function. Doppler and Color Flow revealed trace tricus pid regurgitation. There is no tricuspid valve prolapse or vegetation. There is no tricuspid valve st enosis. PULMONIC VALVE The pulmonary valve is normal in structure and function. There is mild pulmonic regurgiation. There i s no pulmonic valvular stenosis. GREAT VESSELS The aortic is root is mildly dilated at 4.4 cm. The ascending aorta is normal in size. The pulmonary artery is normal. The iVC is mildly dilated. PERICARDIAL EFFUSION There is no pleural effusion. There is no evidence of significant pericardial effusion. Critical Notification Critical Value: No <Conclusion> The Left Ventricle is mildly dilated. The ejection fraction is moderately to severely impaired. LV ejection fraction of 30 to 35%. There is global hypokinesis of the left ventricle. There is mild concentric left ventricular hypertrophy. A device lead is noted in the RV. Doppler and Color Flow revealed trace to mild aortic regurgitation. There is no significant aortic valvular stenosis. Doppler and Color-flow revealed moderate mitral regurgitation. Doppler and Color Flow revealed trace tricuspid regurgitation. Signed by : Lonny Parra MD Electronically Approved : 04/27/2021 14:45:28
[2021-04-27 15:00] VITALS: BP 142/81
[2021-04-27 19:40] VITALS: BP 113/60
[2021-04-27 23:10] VITALS: BP 132/66
[2021-04-28 03:15] VITALS: BP 133/78
[2021-04-28] MEDS: HYDROcodone/APAP 7.5/325MG 1 TAB TABLET PO PRN ×2 (03:58→15:51)
[2021-04-28 04:30] LABS: CALCIUM 8.3 mg/dL (8.5-10.1); CREATININE 1.9 mg/dL (0.7-1.3); GFR 34.7; POTASSIUM 3.1 mmol/L (3.5-5.1)
[2021-04-28] MEDS: LEVOTHYROXINE 150 MCG TABLET PO SCH (06:11)
[2021-04-28 07:00] VITALS: BP 150/82
--- NOTE | 2021-04-28 08:25 | PDOC ---
Provider Note Date of Service: DATE: 04/28/21 TIME: 08:23 Provider Note dyspnea better but L leg pain persists- had chills at home, no temp here- L medial lower leg warm and tender compared to R side, likely cellulitis from L soto wound- culture, start ancef pending results, continue daily lasix, add more coreg re low EF, will need dialy lasix now instead of qod- add kcl as K+ 3.1 Justifications for Admission Other Justification JOSIAH CEBALLOS MD Apr 28, 2021 08:25
[2021-04-28] MEDS: CARVEDILOL 6.25 MG TABLET. PO SCH ×2 (08:47→17:40)
[2021-04-28] MEDS: POTASSIUM CHLORIDE 10 MEQ TABLET.ER. PO SCH ×3 (08:47→17:40)
[2021-04-28] MEDS: FUROSEMIDE 40 MG TABLET. PO SCH (08:48)
[2021-04-28] MEDS: ALLOPURINOL 300 MG TABLET. PO SCH (08:48)
[2021-04-28] MEDS: LISINOPRIL 10 MG TABLET PO SCH (08:48)
--- NOTE | 2021-04-28 09:20 | PDOC ---
CARDIO Progress Notes Date and Time Date of Service 04/28/21 Time of Evaluation 0915 Subjective Subjective: No Chest Pain, No shortness of breath, Other (swelling improved ) Vitals Vitals Vital Signs Date Time Temp Pulse Resp B/P (MAP) Pulse Ox O2 Delivery O2 Flow Rate FiO2 04/28/21 08:48 74 150/82 04/28/21 07:00 97.6 16 97 Room Air 97.6 04/27/21 20:00 2.0 Weight Weight [ ] Input and Output Intake and Output Intake and Output 04/28/21 07:00 Intake Total 1320 ml Output Total 575 ml Balance 745 ml Intake Oral 1320 ml Output Urine Total 575 ml # Voids 1 # Bowel Movements 2 Laboratory Labs Laboratory Tests Test 04/28/21 04:00 Sodium Level 137 mmol/L (136-145) Potassium Level 3.1 mmol/L (3.5-5.1) Chloride Level 99 mmol/L (98-107) Carbon Dioxide Level 35 mmol/L (21-32) Anion Gap 3 (6-14) Blood Urea Nitrogen 42 mg/dL (8-26) Creatinine 1.9 mg/dL (0.7-1.3) Estimated GFR (Cockcroft-Gault) 34.7 Glucose Level 107 mg/dL (70-99) Calcium Level 8.3 mg/dL (8.5-10.1) Physical Exam HEENT: Neck Supple W Full Motion Chest: Symmetric LUNGS: Other (diminished bases) Heart: RRR (v-paced ) Abdomen: Soft N/T Extremities: Other (1+ bilateral LE edema. LLE wound with dressing intact ) Neurology: alert, oriented Assessment Assessment 1. Acute on chronic systolic heart failure, NICM; improved s/p IV diuresis. Echo with LVEF 30-35%. Recent stress test did not show any significant ischemia 2. CHB s/p PPM (Biotronik); recent interrogative with normal function 3. PAFIB; maintaining SR on Amiodarone. Recent device check with 0% AFIB burden. He is a poor candidate for long-term anticoagulation secondary to thrombocytopenia from his CLL 4. Hypertension. Continue to monitor will adjust as needed. 5. H/o lower extremity DVTs; Bilateral LE US without DVT 6. Chronic kidney disease. Continuing to monitor lab. 7. Chronic venous insufficiency; s/p RF ablation of right greater saphenous vein, stable. 8. LLE wound 9. Hypothyroidism 10. History of CLL. 11. GLEN on CKD Recommendations Lasix therapy with close monitoring of renal function Continue HF optimization with Coreg, lisinopril Secondary prevention Continue amiodarone for rhythm maintenance Supportive care Justicifation of Admission Dx: Justifications for Admission: Justification of Admission Dx: Yes Comments: Acute on chronic systolic CHF RADHA CHAMBERLAIN APRN Apr 28, 2021 09:20
[2021-04-28 10:53] VITALS: BP 143/87
--- NOTE | 2021-04-28 11:00 | NUR ---
SS following for discharge planning. SS reviewed pt chart and discussed with pt RN. Pt is from home and is currently on room air. COVID19 negative. Cardiology following. Pt on IV Ancef. PT/OT ordered. SS will continue to follow for discharge planning.
[2021-04-28] MEDS: ceFAZolin SODIUM IV Push 1 GM VIAL. IVP SCH ×3 (11:03→20:49)
[2021-04-28 14:46] VITALS: BP 141/68
[2021-04-28 19:05] VITALS: BP 114/60
[2021-04-28] MEDS: ALPRAZolam 0.5 MG TABLET PO PRN (20:49)
[2021-04-28] MEDS: LACTOBACILLUS RHAMNOSUS GG 1 CAPSULE. PO SCH (20:49)
[2021-04-28 22:26] VITALS: BP 124/70
[2021-04-29 03:08] VITALS: BP 133/77
[2021-04-29] MEDS: ceFAZolin SODIUM IV Push 1 GM VIAL. IVP SCH ×3 (05:48→19:36)
[2021-04-29 07:00] VITALS: BP 138/71
[2021-04-29] MEDS: LACTOBACILLUS RHAMNOSUS GG 1 CAPSULE. PO SCH ×2 (08:29→19:35)
[2021-04-29] MEDS: CARVEDILOL 6.25 MG TABLET. PO SCH ×2 (08:29→16:49)
[2021-04-29] MEDS: POTASSIUM CHLORIDE 10 MEQ TABLET.ER. PO SCH ×3 (08:29→16:48)
[2021-04-29] MEDS: ALLOPURINOL 300 MG TABLET. PO SCH (08:29)
[2021-04-29] MEDS: LISINOPRIL 10 MG TABLET PO SCH (08:30)
[2021-04-29] MEDS: FUROSEMIDE 40 MG TABLET. PO SCH (08:30)
[2021-04-29] MEDS: LEVOTHYROXINE 150 MCG TABLET PO SCH (09:56)
[2021-04-29 11:00] VITALS: BP 130/74
--- NOTE | 2021-04-29 13:13 | NUR ---
SS following up with discharge planning. SS reviewed pt chart and discussed with pt RN. Pt is currently on room air. COVID19 negative. Pt on IV Ancef. PT/OT recommended home independent. Cardiology following. SS will continue to follow for discharge planning.
[2021-04-29 15:00] VITALS: BP 138/76
--- NOTE | 2021-04-29 16:38 | PDOC ---
RADHA CHAMBERLAIN DRILL SETUP OPERATOR 04/29/21 1638: CARDIO Progress Notes Date and Time Date of Service 04/29/21 Time of Evaluation 1415 Subjective Subjective: No Chest Pain, No shortness of breath, No Palpitations, No Dizziness, Other (swelling improved ) Vitals Vitals Vital Signs Date Time Temp Pulse Resp B/P (MAP) Pulse Ox O2 Delivery O2 Flow Rate FiO2 04/29/21 15:00 97.9 67 16 138/76 (96) 97 Room Air 97.9 04/28/21 08:00 2.0 Weight Weight [ ] Input and Output Intake and Output Intake and Output 04/29/21 07:00 Intake Total 1435 ml Output Total 1300 ml Balance 135 ml Intake Oral 1435 ml Output Urine Total 1300 ml Microbiology Micro Microbiology 04/28/21 Aerobic Culture, Resulted Pending 04/28/21 Gram Stain - Final, Resulted Physical Exam HEENT: Neck Supple W Full Motion Chest: Symmetric LUNGS: Other (diminished bases) Heart: RRR (v-paced ) Abdomen: Soft N/T Extremities: Other (1+ bilateral LE edema. LLE wound with dressing intact, chronic venous stasis changes to bilateral LE ) Neurology: alert, oriented, follow commands Assessment Assessment 1. Acute on chronic systolic heart failure, NICM; improved s/p IV diuresis. Echo with LVEF 30-35%. Recent stress test did not show any significant ischemia 2. CHB s/p PPM (Biotronik); recent interrogative with normal function 3. PAFIB; maintaining SR on Amiodarone. Recent device check with 0% AFIB burden. He is a poor candidate for long-term anticoagulation secondary to thrombocytopenia from his CLL 4. Hypertension. Continue to monitor will adjust as needed. 5. H/o lower extremity DVTs; Bilateral LE US without DVT 6. Chronic kidney disease. Continuing to monitor lab. 7. Chronic venous insufficiency; s/p RF ablation of right greater saphenous vein, stable. 8. LLE wound 9. Hypothyroidism 10. History of CLL. 11. GLEN on CKD Recommendations Lasix therapy with monitoring of renal function Continue HF optimization with Coreg, lisinopril. Consider addition of Aldactone Secondary prevention Continue amiodarone for rhythm maintenance Supportive care Justicifation of Admission Dx: Justifications for Admission: Justification of Admission Dx: Yes DANIELE COLLAZO MD 04/30/21 1456: CARDIO Progress Notes Assessment Assessment Patient seen and examined on 04/29/2021. The patient is feeling better today. I agree with our nurse practitioners assessment and plan. Acute on chronic systolic heart failure, NICM; improved s/p IV diuresis. Echo with LVEF 30-35%. Recent stress test did not show any significant ischemia CHB s/p PPM (Biotronik); recent interrogative with normal function PAFIB; maintaining SR on Amiodarone. Recent device check with 0% AFIB burden. He is a poor candidate for long-term anticoagulation secondary to thrombocytopenia from his CLL Hypertension. Continue to monitor. H/o lower extremity DVTs; Bilateral LE US without DVT Chronic kidney disease. Continuing to monitor lab. Chronic venous insufficiency; s/p RF ablation of right greater saphenous vein, stable. LLE wound Hypothyroidism History of CLL. GLEN on CKD RADHA CHAMBERLAIN APRN Apr 29, 2021 16:38 DANIELE COLLAZO MD Apr 30, 2021 14:56
[2021-04-29 19:15] VITALS: BP 140/90
[2021-04-29] MEDS: HYDROcodone/APAP 7.5/325MG 1 TAB TABLET PO PRN (19:35)
[2021-04-29 23:20] VITALS: BP 145/78
[2021-04-29] MEDS: ALPRAZolam 0.5 MG TABLET PO PRN (23:34)
[2021-04-30 03:40] VITALS: BP 139/72
[2021-04-30] MEDS: ceFAZolin SODIUM IV Push 1 GM VIAL. IVP SCH (05:02)
[2021-04-30] MEDS: LEVOTHYROXINE 150 MCG TABLET PO SCH (05:02)
[2021-04-30 07:00] VITALS: BP 152/79
--- NOTE | 2021-04-30 08:04 | PDOC ---
Provider Note Date of Service: DATE: 04/30/21 TIME: 08:03 Provider Note [id number] Justifications for Admission Other Justification JOSIAH CEBALLOS MD Apr 30, 2021 08:04
[2021-04-30] MEDS: ALLOPURINOL 300 MG TABLET. PO SCH (08:44)
[2021-04-30] MEDS: FUROSEMIDE 40 MG TABLET. PO SCH (08:44)
[2021-04-30 08:45] VITALS: BP 152/79
[2021-04-30] MEDS: CARVEDILOL 6.25 MG TABLET. PO SCH (08:45)
[2021-04-30] MEDS: LACTOBACILLUS RHAMNOSUS GG 1 CAPSULE. PO SCH (08:45)
[2021-04-30] MEDS: POTASSIUM CHLORIDE 10 MEQ TABLET.ER. PO SCH (08:45)
[2021-04-30] MEDS: LISINOPRIL 10 MG TABLET PO SCH (08:45)
--- NOTE | 2021-04-30 10:28 | NUR ---
DISCHARGE PT DISCHARGE HOME AT 1005. PIV ET TELE DISCONTINUED. PT DRESSED INDEPENDENTLY. SISTER ARRIVED FOR TRANSPORT HOME. DISCHARGE INFORMATION REVIEWED WITH PATIENT, INCLUDING MEDICATIONS ALREADY TAKEN TODAY AND THOSE REMAINING TO BE TAKEN. PT PLANS TO FOLLOW UP WITH PCP IN A COUPLE OF WEEKS, AND WILL FOLLOW UP WITH CARDIOLOGY NEEDED. ESCORTED OUT VIA WHEELCHAIR TO PRIVATE VEHICLE FOR DISCHARGE.
--- NOTE | 2021-04-30 12:01 | DS ---
DATE OF DISCHARGE: 04/30/2021 HOSPITAL SUMMARY: A 76-year-old white male with known cardiomyopathy and other medical problems, came in with increasing shortness of breath despite usual medications. CBC showed platelet count of 102,000, normal for him and otherwise normal. Chemistry profile showed GFR of 37 consistent with his previous CKD IIIB, mildly elevated BNP with normal troponins. Drug screen was positive only for opioids, which he takes at home. COVID serology was negative. Culture of the left leg negative so far. Chest x-ray showed evidence of mild congestive heart failure and cardiomegaly and echocardiogram confirmed the known cardiomyopathy with ejection fraction reduced to about 30% with no sign of significant valvular disease. He was treated initially with IV Lasix, his dyspnea improved notably, and then left leg pain and redness and warmth, was treated with IV Ancef with definite improvement in the pain in the left medial calf. After 2 days of IV Ancef, he was feeling better, taking all medications and discharged. FINAL DIAGNOSES: 1. Acute on chronic congestive heart failure secondary to dilated cardiomyopathy. 2. Cellulitis of the left lower leg. 3. Chronic thrombocytopenia secondary to preexisting disease. OPERATIONS, PROCEDURES AND COMPLICATIONS: None. CONSULTATION: Dr. Munoz. DISPOSITION: He will take Keflex 500 mg 3 times a day for 5 more days, Lasix we will increase from 40 mg 3 times a week to daily. We will have potassium once daily, increased his carvedilol to 6.25 mg twice a day. Other meds remain the same. Office followup with Dr. Gamez in 1 week for lab. ALIA/CHAYA/ESTEE DR: ALIA/adonay TID: [id number]
== END 2021-04-30 10:09 | disposition home or self-care (01) | DRG 291 ==
LOC: ER 12:04 → 6 SOUTH 14:30
PROVIDERS: ADMIT Family Medicine; ATTEND Family Medicine
DX: I13.0 Hypertensive heart and chronic kidney disease with heart failure and stage 1 through stage 4 chronic kidney disease, or unspecified chronic kidney disease (principal); I50.23 Acute on chronic systolic (congestive) heart failure; J96.01 Acute respiratory failure with hypoxia; C91.10 Chronic lymphocytic leukemia of B-cell type not having achieved remission; I44.2 Atrioventricular block, complete; L03.116 Cellulitis of left lower limb; N17.9 Acute kidney failure, unspecified; I42.0 Dilated cardiomyopathy; D69.59 Other secondary thrombocytopenia; Z20.822 Contact with and (suspected) exposure to COVID-19; E78.5 Hyperlipidemia, unspecified; E89.0 Postprocedural hypothyroidism; Z96.653 Presence of artificial knee joint, bilateral; I48.0 Paroxysmal atrial fibrillation; I87.2 Venous insufficiency (chronic) (peripheral); N18.9 Chronic kidney disease, unspecified; T50.2X5A Adverse effect of carbonic-anhydrase inhibitors, benzothiadiazides and other diuretics, initial encounter; Z86.718 Personal history of other venous thrombosis and embolism; Z95.0 Presence of cardiac pacemaker; Z90.49 Acquired absence of other specified parts of digestive tract; Y92.89 Other specified places as the place of occurrence of the external cause
CPT/HCPCS: 36415; 71045; 71250; 80048; 80053; 80307; 82803; 83690; 83735; 83880; 84132; 84484; 85025; 87071; 87077; 87186; 87426; 93005; 93306; 93970; 94640; 96374; 96375; J0690; J1100; J1940; 99285-25; C8929; G0378